=== PATIENT | male | born 1990 | race Caucasian/White ===

== ENCOUNTER → 2018-05-25 08:48 | Emergency (ER) | payer OTHER ==
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
[2018-05-25 09:41] VITALS: BP 128/101
== END | disposition left against medical advice (07) ==
LOC: ED 08:48
DX: F10.20 Alcohol dependence, uncomplicated (principal); F17.210 Nicotine dependence, cigarettes, uncomplicated; Z53.21 Procedure and treatment not carried out due to patient leaving prior to being seen by health care provider; Z88.8 Allergy status to other drugs, medicaments and biological substances
CPT/HCPCS: 99282

== ENCOUNTER 2018-05-25 09:55 | Emergency (ER) | payer MEDICAID, OTHER ==
[2018-05-25] MEDS ORDERED: Thiamine IV* 100 MG, Folic Acid IV* 1 MG, Multiple Vitamin IV ADULT* 10 ML in NS 0.9% 1... IV ONE (10:08)
[2018-05-25] MEDS ORDERED: Lidocaine 2% VISCOUS* 15 ML UDC PO ONE (10:12)
[2018-05-25] MEDS ORDERED: Pantoprazole IV* 40 MG IV ONE (10:12)
[2018-05-25] MEDS ORDERED: Famotidine TAB* 20 MG PO ONE (10:12)
[2018-05-25] MEDS ORDERED: Al Hydrox/Mg Hydrox/Simet LIQ* 30 ML UDC PO ONE (10:12)
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
[2018-05-25 10:37] LABS: ABS Basophils 0 10^3/ul (0-0.2); ABS Eosinophils 0.1 10^3/ul (0-0.6); ABS Lymphocytes 1.1 10^3/ul (1.0-4.8); ABS Monocytes 0.5 10^3/ul (0-0.8); ABS Neutrophils 2.5 10^3/ul (1.5-7.7); ABS Nucleated RBC 0 10^3/ul; Eosinophil % 2.2 % (0-6); Hematocrit 50 % (42-52); Hemoglobin 17.2 g/dl (14.0-18.0); Mean Corpuscular HGB Conc 34 g/dl (31-36); Mean Corpuscular Hemoglobin 33 pg (27-31); Mean Corpuscular Volume 94 fL (80-94); Mean Platelet Volume 7.9 um3 (7.4-10.4); Nucleated Red Blood Cells % 0.2; Platelet Count 124 10^3/ul (150-450); Red Blood Count 5.29 10^6/ul (4.00-5.40); Red Cell Distribution Width 15 % (10.5-15); White Blood Count 4.2 10^3/ul (3.5-10.8)
--- NOTE | 2018-05-25 10:45 | RAD ---
INDICATION: Seizure COMPARISON: None. TECHNIQUE: Contiguous axial sections of the brain were obtained from the skull base to the vertex without contrast. FINDINGS: The ventricles, cisterns and sulci are within normal limits. The do-white matter differentiation is adequately maintained and there is no sulcal effacement. No significant focal abnormality or mass effect is present. There is no evidence for intracranial hemorrhage. No significant focal osseous abnormality is present. The visualized portion of the paranasal sinuses appear clear. The mastoid air cells are well aerated bilaterally. IMPRESSION: Normal CT of the brain.
[2018-05-25 10:52] LABS: INR 0.83 (0.77-1.02)
[2018-05-25 10:55] LABS: EGFR Non-African American 125.9 (>60)
--- NOTE | 2018-05-25 11:06 | RAD ---
INDICATION: Chest pain COMPARISON: Chest x-ray dated October 17, 2013 TECHNIQUE: Single AP portable view of the chest was obtained. FINDINGS: Image quality is compromised due to the relative inferiority of a portable chest x-ray. The heart and mediastinum exhibit normal size and contour. The lungs are grossly clear. There is no evidence of a large pleural effusion. Visualized bones are normal for the patient's age. IMPRESSION: No radiographic evidence for acute cardiopulmonary abnormality on this portable chest x-ray.
[2018-05-25 12:16] VITALS: BP 139/83
== END 2018-05-25 11:37 | disposition home or self-care (01) ==
LOC: ED 09:55
DX: F10.10 Alcohol abuse, uncomplicated (principal); K29.70 Gastritis, unspecified, without bleeding; F17.210 Nicotine dependence, cigarettes, uncomplicated; Z88.8 Allergy status to other drugs, medicaments and biological substances
CPT/HCPCS: 36415; 70450; 71045; 80053; 80320; 82175; 82550; 83605; 83735; 84443; 84484; 85025; 85610; 85730; 93005; 96374; 99284; G0480

== ENCOUNTER 2018-05-30 12:08 | Emergency (ER) | payer OTHER ==
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
[2018-05-30] MEDS ORDERED: NS 0.9% 1000 ML* 1,000 ML IV ONE (14:07)
[2018-05-30] MEDS ORDERED: Thiamine IV* 100 MG, Folic Acid IV* 1 MG, Multiple Vitamin IV ADULT* 10 ML in NS 0.9% 1... IV ONE (14:07)
[2018-05-30] MEDS ORDERED: LORazepam INJ* 2 MG/ML 1 ML VIAL IV PUSH ONE (14:40)
[2018-05-30] MEDS ORDERED: LORazepam INJ* 2 MG/ML 1 ML VIAL IM ONE (14:42)
[2018-05-30 14:49] LABS: ABS Basophils 0 10^3/ul (0-0.2); ABS Eosinophils 0 10^3/ul (0-0.6); ABS Lymphocytes 1.3 10^3/ul (1.0-4.8); ABS Monocytes 0.5 10^3/ul (0-0.8); ABS Neutrophils 2.7 10^3/ul (1.5-7.7); ABS Nucleated RBC 0 10^3/ul; Eosinophil % 0.5 % (0-6); Hematocrit 47 % (42-52); Hemoglobin 16.1 g/dl (14.0-18.0); Lymphocyte % 28.7 % (25-47); Mean Corpuscular HGB Conc 35 g/dl (31-36); Mean Corpuscular Hemoglobin 33 pg (27-31); Mean Corpuscular Volume 95 fL (80-94); Mean Platelet Volume 7.4 um3 (7.4-10.4); Nucleated Red Blood Cells % 0.1; Platelet Count 157 10^3/ul (150-450); Red Blood Count 4.92 10^6/ul (4.00-5.40); Red Cell Distribution Width 15 % (10.5-15); White Blood Count 4.6 10^3/ul (3.5-10.8)
[2018-05-30 15:01] LABS: EGFR Non-African American 141.2 (>60)
--- NOTE | 2018-05-30 16:54 | RAD ---
INDICATION: Seizure. Fall. COMPARISON: CT brain May 25, 2018 TECHNIQUE: Noncontrast axial source images were acquired from the skull base to the vertex. FINDINGS: Ventricles/sulci: The ventricles and cisterns are normal in size and configuration for age. Brain parenchyma: There is no focal parenchymal finding, evidence of intracranial mass, or intracranial mass effect. Intracranial hemorrhage:None. Extra-axial spaces: There are no abnormal extra axial fluid collections or evidence of extra-axial mass. Calvarium: There is no calvarial fracture or other calvarial abnormality. Scalp: There is no evidence of scalp or extracalvarial soft tissue abnormality. Paranasal sinuses/mastoid: The paranasal sinuses and mastoid air cells are clear. Other: None. IMPRESSION: NEGATIVE EXAMINATION, UNCHANGED.
[2018-05-30] MEDS ORDERED: LORazepam INJ* 2 MG/ML 1 ML VIAL ONE (18:28)
[2018-05-30] MEDS: LORazepam INJ* 2 MG/ML 1 ML VIAL IV PUSH ONE ×2 (18:32→20:27)
[2018-05-30] MEDS ORDERED: diPHENhydraMINE IV* 50 MG/ML 1 ml VIAL (BENADRYL) ONE (18:58)
[2018-05-30] MEDS ORDERED: diPHENhydraMINE IV* 50 MG in NS 0.9% 50 ML* 50 ML IVPB ONE (18:59)
[2018-05-30] MEDS ORDERED: Ondansetron INJ* 2 MG/ML VIAL IV PRN (22:31)
[2018-05-30] MEDS ORDERED: Thiamine IV 100 MG, Folic Acid IV* 1 MG, Multiple Vitamin IV ADULT* 10 ML in NS 0.9% 10... IV ONE (22:31)
[2018-05-30] MEDS ORDERED: Acetaminophen TAB* 325 MG PO PRN (22:31)
[2018-05-30] MEDS ORDERED: Magnesium Sulfate IV* 2 GM in NS 0.9% 100 ML* 100 ML IV ONE (22:33)
[2018-05-30] MEDS ORDERED: Albuterol 2.5 MG/3 ML NEB.SOL* (0.083%) INH PRN (22:41)
[2018-05-30] MEDS ORDERED: LORazepam INJ* 2 MG/ML 1 ML VIAL IV PUSH SCH (23:00)
[2018-05-30] MEDS ORDERED: LORazepam INJ* 2 MG/ML 1 ML VIAL IV SCH (23:00)
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
[2018-05-30 23:52] VITALS: BP 140/93
--- NOTE | 2018-05-31 00:19 | CONS ---
CONSULTATION REPORT: ADDENDUM: While dictating, the patient's mother was reached. She is willing to take the patient home under her care. I did touch base with and my attending. Since the mother shows up and is confident and can care for him, the patient will be discharged to the care of the patient's mother where he is now residing. He has not had a seizure here. Repeat alcohol is pending. Nursing staff did touch base with the mother. She is on her way here. Should she feel comfortable taking the patient home, she will be taking the patient home under her care. However, if she is uncomfortable, then we will certainly admit him until his alcohol is in a safe range. I did again update the ED provider and I updated my attending. They are in agreement. WESLEY MOSLEY NP [id number]/CPS #: [id number] ERNESTO
--- NOTE | 2018-05-31 02:14 | HP ---
ADDENDUM NOW INCLUDED ON THIS REPORT HISTORY AND PHYSICAL: DATE OF ADMISSION: 05/30/18 PRIMARY CARE PROVIDER: Unknown. ATTENDING PHYSICIAN WHILE IN THE HOSPITAL: Dr. Dorys Porter * (report dictated by Bill Mosley NP). CHIEF COMPLAINT: 1. Alcohol abuse. 2. Questionable seizure. HISTORY OF PRESENT ILLNESS: Mr. Doe is a 28-year-old male patient with a well known history of alcohol abuse also carries a history of polysubstance abuse, hepatitis C, suicidal ideation, depression, asthma and a history of seizures. He is coming into the ER today, apparently according to him he came in on his own wishing for rehab purposes; however according to nursing notes and according to the story that was received by nursing staff, he does not collaborate this. He apparently had a seizure today. He felt like he was coming down off alcohol and he drank a bottle of vodka to prevent going into alcohol withdrawal. Alcohol level was checked. He was noted to be 460. He has been belligerent down here. He has been in the ED for 10 hours, he is showing signs of withdrawal at times. He also in addition to this has been noted to have no safe discharge and his alcohol again is over 460. He has had withdrawals in the past. He has required ICU admission in the past for this. There was concern because he had no safe discharge plan and alcohol level being too high. His mother refused to take him home. She is interested in detox. We were asked to evaluate for admission. He is denying having any chest pain or shortness of breath. He is requesting his phone. He denies having any headache. He does not recall the seizure today although he states he has had a history of withdrawal seizures in the past. Per the patient, he is interested in rehab, he felt those services could be offered here but when he found out that we do not offer that at this hospital, he was requesting to be discharged. Unfortunately, he did not have a safe discharge plan, so we were asked to evaluate for admission. PAST MEDICAL HISTORY: 1. Polysubstance abuse. 2. IV drug use. 3. Suicidal ideation. 4. Depression. 5. Hepatitis C. 6. Asthma. 7. Seizures from withdrawal. PAST SURGICAL HISTORY: He has had skin grafting. HOME MEDICATIONS: According to doctor first, I think we need to update this tomorrow and clarify with his PCP. He is on, 1. Ibuprofen 800 mg every 6 hours as needed. 2. Pepcid 20 mg p.o. twice a day. 3. Prilosec 40 mg daily. And there is a question if he is taking Zoloft and Seroquel. ALLERGIES: Include PHENERGAN and HALDOL. FAMILY HISTORY: He is only forthcoming with this. I did specifically ask him if mom and dad had any history of heart disease, cancer, stroke, diabetes, all he says that his mom did some messed up stuff when she was his age. I am assuming that is polysubstance abuse as well, but it is unclear. SOCIAL HISTORY: He is about a pint and half a day drinker. He does say he has a history of IV drug use, but he says he has not used in sometime, he states 4 years the last time it was injected, he says he is on Suboxone but we are unable to clarify that. Surrogate decision maker is his fiance. REVIEW OF SYSTEMS: There is no documented fever. He is denying having any significant weight change. There is no ear discharge. He is denying having any rhinorrhea. There is no sore throat, no thyroid enlargement and denied having any chest pain. There is no orthopnea. There is no nocturnal dyspnea. He is denying having any abdominal pain. There was no nausea, no vomiting, no dysuria, no frequency. There is question of seizure. No loss of consciousness. No pruritus. No skin ulcerations. Review of 14 systems was completed, all others negative. PHYSICAL EXAMINATION GENERAL: At this time, Mr. Doe is a 28-year-old male patient. He does appear to be disheveled. He is sitting in the ED stretcher. He does not appear to be in any acute distress. VITAL SIGNS: Blood pressure 117/70, pulse 110, respirations 18, O2 sat 97%, temperature 98.8. HEENT: Head: Atraumatic, normocephalic. Eyes: EOMs are intact. Sclerae anicteric, not pale. Neck, supple. Oral mucosa appears to be dry. No oropharyngeal erythema. HEART: Sounds S1, S2. He has a regular rate and rhythm. He is tachycardic. LUNGS: Clear to auscultation bilaterally. No wheezes, rales, or rhonchi. ABDOMEN: Soft, flat, nontender. Bowel sounds were present. EXTREMITIES: Pulses were 2+ throughout. He had no peripheral edema. He is moving all 4 extremities with 5/5 strength. NEUROLOGIC: The patient is awake. He is alert. He is oriented x3. His tongue is midline. Windows Systems Engineer were equal. He had no gross focal deficits. SKIN: Intact. DIAGNOSTIC STUDIES/LAB DATA: WBC of 4.6, RBC of 4.92, hemoglobin of 16.1, hematocrit of 47, platelet count of 157. Sodium 140, potassium 3.8, chloride 103, bicarb 24, BUN 6, creatinine 0.67, glucose 140, lactate 2, calcium 9.5, mag 1.8. Total bili 0.4, AST 81, ALT 68. Albumin of 4.5. Toxicology, alcohol is 468. Barbiturates positive. He had a brain CT obtained today which revealed negative. Exam unchanged. Old medical records were reviewed. ASSESSMENT AND PLAN: Mr. Doe is a 28-year-old male patient, coming into the ED today with complaints of alcoholism, questions of alcohol withdrawal seizure. We were asked to evaluate for admission. He will be admitted under observation status for: 1. Alcoholism. At this point, I did place a social work consult. He is not a medical comp and to make a decision on his own should he have a safe discharge such as a family member coming to get him or a confident adult. He can be discharged under their care. Unfortunately he does not have that at this point and his alcohol level is too high for him to be discharged, so I have discussed with him since at this point we will be admitting him, putting him on a [place] protocol, give him a banana bag, refer to social work consult. They will continue to follow him. 2. History of polysubstance abuse. We will clarify if he is on Suboxone, I felt the last time he was prescribed this was in 2017, so we will continue again to get social work and we will follow. 3. History of suicidal ideation and depression. He is not suicidal at this point. Continue supportive care. 4. Hepatitis C. We will need to set him up for the primary. 5. History of alcohol withdrawal seizure. I have placed him on standing Ativan and we will continue with seizure precautions. 6. Asthma. We have ordered p.r.n. nebs. 7. DVT prophylaxis. He will be placed on SCDs. 8. Code status: Full code. 9. Fluids, electrolytes, and nutrition. He can have a regular diet. TIME SPENT: Time spent on admission was 60 minutes, greater than half the time was spent [id number] with the patient obtaining my history and physical; other half time was spent going over the plan of care with the patient and implementing plan of care. I did discuss the plan of care with my attending, Dr. Porter, she is in agreement. BILL MOSLEY NP ADDENDUM: While dictating, the patient's mother was reached. She is willing to take the patient home under her care. I did touch base with and my attending. Since the mother shows up and is confident and can care for him, the patient will be discharged to the care of the patient's mother where he is now residing. He has not had a seizure here. Repeat alcohol is pending. Nursing staff did touch base with the mother. She is on her way here. Should she feel comfortable taking the patient home, she will be taking the patient home under her care. However, if she is uncomfortable, then we will certainly admit him until his alcohol is in a safe range. I did again update the ED provider and I updated my attending. They are in agreement. BILL MOSLEY NP [id number]/CPS #: [id number] Jose [id number]/CPS #: [id number] ERNESTO
[2018-05-31] MEDS ORDERED: Sertraline* 50 MG TAB PO SCH (09:00)
[2018-05-31] MEDS ORDERED: Omeprazole CAP* 20 MG PO SCH (09:00)
[2018-05-31] MEDS ORDERED: Famotidine TAB* 20 MG PO SCH (09:00)
[2018-05-31] MEDS ORDERED: Thiamine TAB* 100 MG TAB PO SCH (09:00)
[2018-05-31] MEDS ORDERED: Folic Acid TAB* 1 MG PO SCH (09:00)
[2018-05-31] MEDS ORDERED: Multivitamins/Minerals TAB PO SCH (09:00)
[2018-05-31] MEDS ORDERED: QUETIAPINE FUMARATE 100 MG PO SCH (21:00)
== END 2018-05-30 23:52 | disposition home or self-care (01) ==
LOC: ED 12:08 → ICU 22:29 → UNDOADMOB 22:29 → ED 23:52
DX: F10.129 Alcohol abuse with intoxication, unspecified (principal); Y90.8 Blood alcohol level of 240 mg/100 ml or more; S05.11XA Contusion of eyeball and orbital tissues, right eye, initial encounter; Y04.2XXA Assault by strike against or bumped into by another person, initial encounter; Y92.9 Unspecified place or not applicable; F17.210 Nicotine dependence, cigarettes, uncomplicated; Z86.69 Personal history of other diseases of the nervous system and sense organs; Z88.8 Allergy status to other drugs, medicaments and biological substances
CPT/HCPCS: 36415; 70450; 80053; 80307; 80320; 83605; 83735; 85025; 96361; 96365; 96372; 99285; G0480; J1200; J2060; J3411

== ENCOUNTER 2018-07-15 15:49 | Inpatient (IN) | payer OTHER ==
[2018-07-15] MEDS ORDERED: LORazepam INJ* 2 MG/ML 1 ML VIAL ONE ×3 (16:04→16:18)
[2018-07-15] MEDS ORDERED: LORazepam INJ* 2 MG/ML 1 ML VIAL IV PUSH ONE ×3 (16:05→16:18)
[2018-07-15] MEDS ORDERED: NS 0.9% 1000 ML* 1,000 ML IV ONE (16:05)
[2018-07-15] MEDS ORDERED: Thiamine IV* 100 MG, Folic Acid IV* 1 MG, Multiple Vitamin IV ADULT* 10 ML in NS 0.9% 1... IV ONE ×2 (16:06→16:40)
--- NOTE | 2018-07-15 16:14 | ED ---
Syncope/Near Syncope - HPI Summary HPI Summary: This patient is a 28 year old M BIBA to [facility] with a chief complaint of a syncopal episode with loss of consciousness that occurred at 15:00. Pt has hx of seizures but witnesses could not describe the episode as a seizure. The patient rates the pain 8/10 in severity. Symptoms aggravated by nothing. Symptoms alleviated by nothing. Patient reports tremors and rapid HR. Patient also notes a diffuse rash to his whole body. Patient reports that his symptoms may be due to EtOH withdrawal. Pt says he last had a drink 1 day ago. At worst, patient notes that he drinks 1L of vodka per day. Patient notes he has hx of heart rhythm problems, he thinks SVT. Pt has previous hx of heroin use and pt states he has been clean for 3 years. In room, HR is 185 bpm. - History Of Current Complaint Chief Complaint: EDChestPainROMI Time Seen by Provider: 07/15/18 16:00 Hx Obtained From: Patient, EMS Onset/Duration: Sudden Onset, Resolved Timing: Seconds Context: Witnessed Aggravating Factor(s): Nothing Alleviating Factor(s): Nothing Associated Signs And Symptoms: Palpitations - rapid HR, Other - tremors, diffuse rash - Allergies/Home Medications Allergies/Adverse Reactions: Allergies Allergy/AdvReac Type Severity Reaction Status Date / Time bee venom protein (honey bee) Allergy Anaphylatic Verified 07/15/18 16:08 Shock haloperidol [From Haldol] Allergy See Comment Verified 07/15/18 16:08 promethazine Allergy See Comment Verified 07/15/18 16:08 bee stings Allergy Severe Swelling Uncoded 07/15/18 16:08 Of Face,Lips,& Throat Home Medications: Home Medications Buprenorphine HCl/Naloxone HCl [Suboxone 8 mg-2 mg Sl Film] 1 each SL DAILY 01/27 [History Confirmed 07/15/18] Famotidine [Pepcid] 20 mg PO BID 07/15/18 [History Confirmed 07/15/18] Melatonin 3 mg PO DAILY PRN 07/15/18 [History Confirmed 07/15/18] cloNIDine TAB* [Catapres 0.1 MG TAB*] 0.3 mg PO DAILY 07/15/18 [History Confirmed 07/15/18] PMH/Surg Hx/FS Hx/Imm Hx Endocrine/Hematology History: Denies: Hx Diabetes Cardiovascular History: Reports: Hx Hypertension Respiratory History: Reports: Hx Asthma GI History: Reports: Hx Ulcer Musculoskeletal History: Reports: Hx Back Problems Sensory History: Denies: Hx Legally Blind, Hx Deafness Opthamlomology History: Denies: Hx Legally Blind Neurological History: Reports: Hx Seizures Psychiatric History: Reports: Hx Anxiety, Hx Depression, Hx Inpatient Treatment , Hx Community Mental Health Tx, Hx Suicide Attempt, Hx Substance Abuse Denies: Hx Eating Disorder, Hx of Violent Episodes Against Others - Surgical History Surgery Procedure, Year, and Place: none Infectious Disease History: Yes Infectious Disease History: Reports: Hx Hepatitis Denies: Traveled Outside the [place] in Last 30 Days - Family History Known Family History: Negative: Blood Disorder - Social History Alcohol Use: Daily Alcohol Amount: 1 L vodka a day, states cutting back Hx Substance Use: Yes Substance Use Type: Reports: Heroin Substance Use Comment - Amount & Last Used: states clean 3 years Smoking Status (MU): Light Every Day Tobacco Smoker Type: Cigarettes Amount Used/How Often: 1/4 pack day Review of Systems Negative: Fever, Chills Negative: Erythema Negative: Sore Throat Positive: Palpitations. Negative: Chest Pain Negative: Shortness Of Breath, Cough Negative: Abdominal Pain, Vomiting, Nausea Negative: dysuria, hematuria Negative: Myalgia, Edema Positive: Rash - diffuse rash Neurological: Negative - negative dizziness, Other - positive tremors Positive: Syncope All Other Systems Reviewed And Are Negative: Yes Physical Exam - Summary Physical Exam Summary: Constitutional: Well-developed, Well-nourished, Alert. (-) Distressed Skin: Warm, Dry. Round, raised lesions on his extremities HENT: Atraumatic, parietal abrasion Eyes: Conjunctiva normal Neck: Musculoskeletal ROM normal neck. (-) JVD, (-) Stridor, (-) Tracheal deviation Cardio: Rhythm regular, tachycardia, Heart sounds normal; Intact distal pulses; The pedal pulses are 2+ and symmetric. Radial pulses are 2+ and symmetric. (-) Murmur Pulmonary/Chest wall: Effort normal. (-) Respiratory distress, (-) Wheezes, (-) Rales Abd: Soft, (-) epigastric tenderness, (-) Distension, (-) Guarding, (-) Rebound Musculoskeletal: (-) Edema Lymph: (-) Cervical adenopathy Neuro: Alert, Oriented x3, tremulous Psych: Mood and affect Normal Triage Information Reviewed: Yes Vital Signs On Initial Exam: Initial Vitals Temp Pulse Resp BP Pulse Ox 99.2 F 189 16 173/105 98 07/15/18 15:55 07/15/18 15:55 07/15/18 15:55 07/15/18 15:55 07/15/18 15:55 Vital Signs Reviewed: Yes Diagnostics - Vital Signs Vital Signs Temp Pulse Resp BP Pulse Ox 07/15/18 16:08 20 07/15/18 15:55 99.2 F 189 16 173/105 98 - Laboratory Result Diagrams: 07/15/18 16:22 07/15/18 16:22 Lab Statement: Any lab studies that have been ordered have been reviewed, and results considered in the medical decision making process. - CT CT Brain CT Interpretation: No Acute Changes - IMPRESSION: No intracranial mass or hemorrhage is noted. Dr. Kingsley has reviewed this report. CT Interpretation Completed By: Radiologist CT C-Spine CT Interpretation: No Acute Changes - IMPRESSION: No fracture of the cervical spine is noted. Scoliosis of the cervical spine. Dr. Kingsley has reviewed this report. CT Interpretation Completed By: Radiologist - EKG 16:12 Cardiac Rate: Tachycardia - at 165 bpm EKG Rhythm: Atrial Fibrillation - rapid ventricular rhythm EKG Interpretation: AFib at 165 bpm with rapid ventricular rhythm Course/Dx Course Of Treatment: This patient is a 28 year old M with hx of EtOH and drug abuse, seizures, and SVT reports syncopal episode at 15:00. Patient last had a drink1 day ago and notes his symptoms may be due to EtOH withdrawal. An EKG reveals, AFib at 165 bpm with rapid ventricular rhythm. CT Brain reveals, per radiologist, no intracranial mass or hemorrhage is noted. CT C-spine reveals, per radiologist, no fracture of the cervical spine is noted. Scoliosis of the cervical spine. ED physician has reviewed these radiology reports. Test results with no significant abnormalities except for elevated lactic acid. In the ED course the patient was given IV fluids, Ativan, Diltiazem, Cardizem, and a Banana Bag. We discussed patient care with Dr. Porter and they agreed to admit pt to [facility]. Patient will be admitted to [facility]. The patient is agreeable with this plan. - Diagnoses Provider Diagnoses: Atrial fibrillation with rapid ventricular response, Alcohol withdrawal seizure - Physician Notifications Discussed Care of Patient With: Dorys Porter Time Discussed With Above Provider: 17:00 Instructed by Provider To: Admit As Inpatient Discharge - Sign-Out/Discharge Documenting (check all that apply): Patient Departure - Discharge Plan Condition: Improved Disposition: ADMITTED TO [facility] - Billing Disposition and Condition Condition: IMPROVED Disposition: Admitted to [facility] - Attestation Statements Document Initiated by Scribe: Yes Documenting Scribe: Sissy Ruiz Provider For Whom Scribe is Documenting (Include Credential): Derian Kingsley MD Scribe Attestation: Sissy Hooks, scribed for Derian Kingsley MD on 07/20/18 at 1231. Scribe Documentation Reviewed: Yes Provider Attestation: The documentation as recorded by the scribe, Sissy Ruiz accurately reflects the service I personally performed and the decisions made by Derian ferrari MD
[2018-07-15] MEDS ORDERED: Diltiazem IV VIAL* 5 MG/ML 10 ML VIAL IV SLOW PU ONE ×3 (16:18→17:27)
[2018-07-15] MEDS ORDERED: Diltiazem IV* 5 MG/ML 5 ML VIAL (for loading dose/IV Push) (25 MG) ONE (16:20)
[2018-07-15] MEDS: Diltiazem IV* 5 MG/ML 5 ML VIAL (for loading dose/IV Push) (25 MG) IV SLOW PU ONE ×2 (16:22→16:28)
[2018-07-15 16:32] LABS: ABS Basophils 0 10^3/ul (0-0.2); ABS Eosinophils 0 10^3/ul (0-0.6); ABS Lymphocytes 0.8 10^3/ul (1.0-4.8); ABS Monocytes 0.4 10^3/ul (0-0.8); ABS Neutrophils 3.4 10^3/ul (1.5-7.7); ABS Nucleated RBC 0 10^3/ul; Eosinophil % 0.8 % (0-6); Hematocrit 46 % (42-52); Hemoglobin 15.9 g/dl (14.0-18.0); Lymphocyte % 17.6 % (25-47); Mean Corpuscular HGB Conc 35 g/dl (31-36); Mean Corpuscular Hemoglobin 33 pg (27-31); Mean Corpuscular Volume 95 fL (80-94); Nucleated Red Blood Cells % 0.1; Platelet Count 275 10^3/ul (150-450); Red Blood Count 4.82 10^6/ul (4.00-5.40); Red Cell Distribution Width 15 % (10.5-15); White Blood Count 4.7 10^3/ul (3.5-10.8)
[2018-07-15 16:46] LABS: EGFR Non-African American 113.5 (>60)
[2018-07-15] MEDS ORDERED: Diltiazem TAB* 30 MG PO ONE (16:57)
--- NOTE | 2018-07-15 17:39 | RAD ---
Indication: Altered mental status CT of the brain was performed without IV contrast. Comparison is made with previous exam dated May 30, 2018. Ventricular structures are midline. No midline shift is noted. The extra-axial spaces are unremarkable. There is no evidence of intracranial mass or hemorrhage. No other high or low density lesions are identified. Mastoid air cells and paranasal sinuses are otherwise unremarkable. IMPRESSION: No intracranial mass or hemorrhage is noted.
--- NOTE | 2018-07-15 17:41 | RAD ---
Indication: Confusion. CT of the cervical spine was obtained in the axial plane. Sagittal and coronal reconstructed images were obtained. The skull base demonstrates no evidence of fracture. The vertebral bodies appear normal height. No evidence of compression fracture is noted. No focal protrusion is identified. There is suggestion of some scoliosis of the cervical spine. Lung apices are otherwise unremarkable. IMPRESSION: No fracture of the cervical spine is noted. Scoliosis of the cervical spine.
[2018-07-15 17:42] LABS: INR 0.8 (0.77-1.02)
[2018-07-15] MEDS ORDERED: Metoprolol Tartrate IV* 1 MG/ML 5 ML VIAL IV PRN (17:50)
[2018-07-15] MEDS ORDERED: Metoprolol Tartrate TAB* 25 MG PO SCH (18:00)
[2018-07-15] MEDS: chlordiazePOXIDE CAP* 25 MG PO SCH ×2 (18:05→20:23)
--- NOTE | 2018-07-15 18:24 | ADMNOTE ---
Subjective Date of Service: 07/15/18 Interval History: ADMISSION HISTORY AND PHYSICAL EXAM: Allergies Allergy/AdvReac Type Severity Reaction Status Date / Time bee venom protein (honey bee) Allergy Anaphylatic Verified 07/15/18 16:08 Shock haloperidol [From Haldol] Allergy See Comment Verified 07/15/18 16:08 promethazine Allergy See Comment Verified 07/15/18 16:08 bee stings Allergy Severe Swelling Uncoded 07/15/18 16:08 Of Face,Lips,& Throat Home Medications Medication Instructions Recorded Confirmed Type Quetiapine Fumarate [Seroquel] 100 mg PO BEDTIME 06/23/14 07/15/18 History Buprenorphine HCl/Naloxone HCl 1 each SL DAILY 07/15/18 07/15/18 History [Suboxone 8 mg-2 mg Sl Film] Famotidine [Pepcid] 20 mg PO BID 07/15/18 07/15/18 History Melatonin 3 mg PO DAILY PRN 07/15/18 07/15/18 History cloNIDine TAB* [Catapres 0.1 MG 0.3 mg PO DAILY 07/15/18 07/15/18 History TAB*] HPI: The patient last had an alcoholic drink about 2 AM today. He had been drinking heavily. About 2 PM he had a seizure and fell off a porch onto concrete. He later could tell his heart was very fast. He felt terrible. He had struck his head. EMS was called. He has had alcohol withdrawal seizures before, probably has had atrial fib before as well, treated at . Family History: Findings - Unremarkable. Social History: Findings - Smoker. Recently moved to [place], about 2 months ago. He cannot name a SDM at this time. Past Medical History: Findings - Alcohol abuse with withdrawal seizures, polysubstance abuse, psoriasis, hep C, suicidal ideation, asthma, depression. Review of Systems - Measurements Intake and Output: Intake and Output Last 24 Hours 07/13/18 07/14/18 07/15/18 07/16/18 06:59 06:59 06:59 06:59 Weight 150 lb - Review of Systems Constitutional Symptoms: Negative: Weight Gain, Weight Loss, Weakness, Fatigue, Fever, Night Sweats, Unexplained Falls, Other Dermatology: Positive: Normal, Rash - psoriasis, pruritic, all limbs HEENT: Positive: Normal Thyroid: Positive: Normal Pulmonary: Positive: Normal Cardiology: Positive: Chest Pain Gastroenterology: Positive: Normal Genital - Urinary: Positive: Normal Genitourinary - Male: Negative: Prostatism, Erectile Dysfunction, Family Hx of Prostate Cancer, Other Musculoskeletal: Negative: Joint Pain, Joint Stiffness, Arthritis, Osteoporosis, Low Back Pain , Sciatica, Joint Deformities, Kyphoscoliosis, Other Endocrinology: Positive: Normal Hematologic/Lymphatic: Negative: Anemia, Easy Brusing, Hx Leukemia, Hx Lymphoma, Use of Anticoagulant, Use of Antiplatelet Drugs, Other Neurology: Positive: Normal Psychiatry: Positive: Depression, Suicidal Ideation - in past Allergic/Immunologic: Negative: Hx Anaphylaxis, Hx Angioedema, Hx Environmental, Hx Seasonal, Athsma, Hx HIV, Immunocompromise, Swollen Glands LymphNodes, Other Objective Active Medications: Buprenorphine/Naloxone (Suboxone 8-2 Mg Sl Tab*) 1 tab.sl PO DAILY [facility] Chlordiazepoxide (Librium Cap*) 50 mg PO TID [facility] Last Admin: 07/15/18 18:05 Dose: 50 mg Chlordiazepoxide (Librium Cap*) 50 mg PO Q3H PRN PRN Reason: ANXIETY Thiamine HCl 100 mg/ Folic Acid 1 mg/ Multivitamins 10 ml / Sodium Chloride 1, 011.2 mls @ 250 mls/hr IV ED ONCE ONE Stop: 07/15/18 20:08 Last Admin: 07/15/18 16:43 Dose: 250 mls/hr Metoprolol Tartrate (Lopressor Iv*) 5 mg IV Q2H PRN PRN Reason: BLOOD PRESSURE Last Admin: 07/15/18 18:05 Dose: 5 mg Metoprolol Tartrate (Lopressor Tab*) 25 mg PO Q6H [facility] Last Admin: 07/15/18 18:05 Dose: 25 mg Nicotine (Nicotine Patch 21 Mg/24 Hr*) 1 patch TRANSDERM DAILY [facility] Thiamine HCl (Vitamin B-1 Tab*) 200 mg PO DAILY [facility] Vital Signs - 8 hr 07/15/18 07/15/18 07/15/18 15:55 16:00 16:12 Temperature 99.2 F Pulse Rate 189 Respiratory 16 20 20 Rate Blood Pressure 173/105 (mmHg) O2 Sat by Pulse 98 Oximetry 07/15/18 07/15/18 07/15/18 16:21 16:26 16:27 Temperature Pulse Rate 119 125 Respiratory 22 14 14 Rate Blood Pressure 118/80 (mmHg) O2 Sat by Pulse 90 93 Oximetry 07/15/18 07/15/18 07/15/18 16:28 16:31 16:56 Temperature Pulse Rate 119 101 98 Respiratory 17 14 12 Rate Blood Pressure 144/96 135/90 133/83 (mmHg) O2 Sat by Pulse 93 94 95 Oximetry 07/15/18 07/15/18 07/15/18 17:13 17:14 18:05 Temperature Pulse Rate 108 107 Respiratory 14 15 20 Rate Blood Pressure 139/93 (mmHg) O2 Sat by Pulse 96 95 Oximetry Oxygen Devices in Use Now: None Appearance: Alert, partly up on ED stretcher. In fair spirits. Looks comfortable. Eyes: No Scleral Icterus Ears/Nose/Mouth/Throat: Clear Oropharnyx Neck: NL Appearance and Movements; NL JVP, No Thyroid Enlargement, Masses Respiratory: Symmetrical Chest Expansion and Respiratory Effort, Clear to Auscultation, Clear to Percussion Cardiovascular: NL Sounds; No Murmurs; No JVD, No Edema, - - rapid and irreg Extremities: No Edema, No Clubbing, Cyanosis, - Skin: No Nodules or Sclerosis, - - dozens of red macules, 1-3 cm on all 4 limbs. Neurological: Alert and Oriented x 3, NL Sensation - mild sustention tremor. Result Diagrams: 07/15/18 16:22 07/15/18 16:22 Assess/Plan/Problems-Billing Assessment: - Patient Problems (1) Atrial fibrillation Current Visit: Yes Status: Acute Code(s): I48.91 - UNSPECIFIED ATRIAL FIBRILLATION SNOMED Code(s): 55058606 Comment: Likely related to his alcoholism and likely not his first episode. Echo, po and IV BB. 2 troponins requested. (2) Alcohol withdrawal Current Visit: Yes Status: Acute Code(s): F10.239 - ALCOHOL DEPENDENCE WITH WITHDRAWAL, UNSPECIFIED SNOMED Code(s): 227581273 Comment: With hx seizures. Scheduled and PRN chlordiazepoxide ordered, also thiamine. (3) Tobacco abuse Current Visit: Yes Status: Acute Code(s): Z72.0 - TOBACCO USE SNOMED Code( s): 192976627 Comment: Pt advised to quit smoking and avoid second hand smoke. NRT ordered. (4) Polysubstance abuse Current Visit: No Status: Acute Code(s): F19.10 - OTHER PSYCHOACTIVE SUBSTANCE ABUSE, UNCOMPLICATED SNOMED Code(s): 238853161 Comment: Continuation of suboxone tx ordered.
[2018-07-15 18:28] LABS: Urine Appearance Clear; Urine Blood 1+ (Negative); Urine Color Yellow; Urine Ketones Negative (Negative); Urine Protein 1+(30 mg/dL) (Negative); Urine Red Blood Cell Trace(0-2/hpf) (Absent); Urine Specific Gravity 1.011 (1.010-1.030); Urine Urobilinogen Negative (Negative); Urine White Blood Cell Trace(0-5/hpf) (Absent)
[2018-07-15] MEDS: Thiamine TAB* 100 MG TAB PO SCH (20:23)
[2018-07-15] MEDS: Metoprolol Tartrate TAB* 50 mg PO SCH (20:23)
[2018-07-15] MEDS: Nicotine PATCH 21 MG/24 HR* PATCH TRANSDERM SCH (20:24)
[2018-07-15] MEDS: chlordiazePOXIDE CAP* 25 MG PO PRN (23:37)
[2018-07-16] MEDS: chlordiazePOXIDE CAP* 25 MG PO PRN ×4 (04:20→23:41)
[2018-07-16] MEDS: Metoprolol Tartrate TAB* 50 mg PO SCH ×2 (08:47→20:33)
[2018-07-16] MEDS: Buprenorphine/Naloxone 8-2 MG SL TAB* 1 TAB PO SCH (08:47)
[2018-07-16] MEDS: Nicotine PATCH 21 MG/24 HR* PATCH TRANSDERM SCH (08:48)
[2018-07-16] MEDS: chlordiazePOXIDE CAP* 25 MG PO SCH ×4 (08:48→20:33)
[2018-07-16] MEDS: Thiamine TAB* 100 MG TAB PO SCH (08:48)
[2018-07-16] MEDS ORDERED: Metoprolol Tartrate TAB* 25 MG PO ONE (09:12)
[2018-07-16] MEDS ORDERED: Metoprolol Tartrate IV* 1 MG/ML 5 ML VIAL IV PRN (09:15)
--- NOTE | 2018-07-16 09:28 | PN ---
Subjective Date of Service: 07/16/18 Interval History: Slept poorly. He is going to try to eat his breakfast. No new c/o. He agrees to see the , does not feel he needs to see psychiatrist at this time. Family History: Findings - Unremarkable. Social History: Findings - Smoker. Recently moved to [place], about 2 months ago. He cannot name a SDM at this time. Past Medical History: Findings - Alcohol abuse with withdrawal seizures, polysubstance abuse, psoriasis, hep C, suicidal ideation, asthma, depression. Objective Active Medications: Buprenorphine/Naloxone (Suboxone 8-2 Mg Sl Tab*) 1 tab.sl PO DAILY [facility] Last Admin: 07/16/18 08:47 Dose: 1 tab.sl Chlordiazepoxide (Librium Cap*) 50 mg PO Q3H PRN PRN Reason: ANXIETY Last Admin: 07/16/18 08:53 Dose: 50 mg Chlordiazepoxide (Librium Cap*) 50 mg PO QID [facility] Metoprolol Tartrate (Lopressor Tab*) 75 mg PO Q12HR [facility] Metoprolol Tartrate (Lopressor Iv*) 5 mg IV Q2H PRN PRN Reason: BLOOD PRESSURE Nicotine (Nicotine Patch 21 Mg/24 Hr*) 1 patch TRANSDERM DAILY [facility] Last Admin: 07/16/18 08:48 Dose: 1 patch Thiamine HCl (Vitamin B-1 Tab*) 200 mg PO DAILY [facility] Last Admin: 07/16/18 08:48 Dose: 200 mg Vital Signs - 8 hr 07/16/18 07/16/18 07/16/18 02:31 04:13 04:20 Temperature 98.3 F Pulse Rate 85 Respiratory 18 16 16 Rate Blood Pressure 154/87 (mmHg) O2 Sat by Pulse 97 Oximetry 07/16/18 07/16/18 07/16/18 06:00 06:55 07:27 Temperature 97.4 F Pulse Rate 87 Respiratory 16 14 16 Rate Blood Pressure 107/71 (mmHg) O2 Sat by Pulse 97 Oximetry 07/16/18 07/16/18 07/16/18 08:47 08:48 08:53 Temperature Pulse Rate Respiratory 16 16 16 Rate Blood Pressure (mmHg) O2 Sat by Pulse Oximetry Oxygen Devices in Use Now: None Appearance: Alert, sitting up in bed. In fair spirits. Looks comfortable. Eyes: No Scleral Icterus Respiratory: Symmetrical Chest Expansion and Respiratory Effort, Clear to Auscultation, Clear to Percussion Cardiovascular: NL Sounds; No Murmurs; No JVD, No Edema, - - irreg, rapid Extremities: No Edema, No Clubbing, Cyanosis, - Skin: No Nodules or Sclerosis, - - psoriatic lesions as before Neurological: Alert and Oriented x 3, NL Sensation - mild-mod sustention tremor. Result Diagrams: 07/15/18 16:22 07/15/18 16:22 Assess/Plan/Problems-Billing Assessment: - Patient Problems (1) Atrial fibrillation Current Visit: Yes Status: Acute Code(s): I48.91 - UNSPECIFIED ATRIAL FIBRILLATION SNOMED Code(s): 67396845 Comment: Likely related to his alcoholism and likely not his first episode. Echo, po and IV BB. 2 troponins both wnl. Increase metoprolol to 75 mg bid AM 07/16. (2) Alcohol withdrawal Current Visit: Yes Status: Acute Code(s): F10.239 - ALCOHOL DEPENDENCE WITH WITHDRAWAL, UNSPECIFIED SNOMED Code(s): 971119429 Comment: With hx seizures. Increase scheduled chlordiazepoxide to 50 mg QID as of 07/16, taper to 50 tid beginning 07/17, continue thiamine. SW consult requested. (3) Tobacco abuse Current Visit: Yes Status: Acute Code(s): Z72.0 - TOBACCO USE SNOMED Code( s): 718767802 Comment: Pt advised to quit smoking and avoid second hand smoke. NRT ordered. (4) Polysubstance abuse Current Visit: No Status: Acute Code(s): F19.10 - OTHER PSYCHOACTIVE SUBSTANCE ABUSE, UNCOMPLICATED SNOMED Code(s): 084954403 Comment: Continuation of suboxone tx ordered.
--- NOTE | 2018-07-16 16:14 | ECHO ---
Patient: MAJO CORNEJO [facility] Rec#: [id number] : 1990 Date: 07/16/2018 Age: 28y Height: 173 cm / 68.1 in Weight: 68.04 kg / 150.0 lbs Sex: M BSA: 1.81 Room#: 438 Admit Date#: 07/15/2018 Type: Inpatient Referring: Santosh Nath MD Reading: Lashae Evans MD Special Effects Technician: Liz ParkDR. [facility] Tran[facility] Ech[facility] Indication: Abnormal EKG, atrial fibrillation with RVR BP: 154/87 HR: 135 Rhythm: A-Fib Findings History: ETOH and polysubstance abuse, Hep. C, seizures with withdrawal, smoker. Technical Comments: The study quality is good. Completed at 1100. Left Ventricle: The left ventricular chamber size is normal. There is no left ventricular hypertrophy. Unable to estimate left ventricular ejection fraction. Given baseline tachycardia and probably atrial fibrillation. There is septal flattening of the interventricular septum consistent with right ventricular volume or pressure overload. The assessment of diastolic function is non-diagnostic. Left Atrium: The left atrial chamber size is normal. Right Ventricle: Moderator Band present. The right ventricle is mildly dilated. The right ventricular global systolic function is moderately reduced. Right Atrium: The right atrium is mildly dilated. Aortic Valve: The aortic valve is trileaflet. There is no evidence of aortic valve thickening. There is no evidence of aortic regurgitation. There is no evidence of aortic stenosis. Mitral Valve: The mitral valve leaflets are mildly thickened. There is a trace of mitral regurgitation. There is no evidence of mitral stenosis. Tricuspid Valve: The tricuspid valve leaflets are normal. There is trace tricuspid regurgitation. The right ventricular systolic pressure is estimated at 16 mmHg. No pulmonary hypertension is noted. There is no tricuspid stenosis. Pulmonic Valve: The pulmonic valve appears normal. There is a trace pulmonic regurgitation. There is no pulmonic stenosis. Pericardium: There is no significant pericardial effusion. Aorta: There is no dilatation of the ascending aorta. There is no dilatation of the aortic arch. The aortic root is normal in size. Pulmonary Artery: The main pulmonary artery appears normal. Venous: The inferior vena cava appears normal in size. There is a greater than 50% respiratory change in the inferior vena cava dimension. Summary: There was not any prior study for comparison. Conclusions The left ventricular chamber size is normal. The left ventricular chamber size is normal. Unable to estimate left ventricular ejection fraction. Given baseline tachycardia and probably atrial fibrillation. There is septal flattening of the interventricular septum consistent with right ventricular volume or pressure overload. The assessment of diastolic function is non-diagnostic. The right atrium is mildly dilated. There is a trace of mitral regurgitation. There is trace tricuspid regurgitation. No pulmonary hypertension is noted. There is a trace pulmonic regurgitation. Measurements Name Value Normal Range RVIDd (AP) 2D 2.9 cm (0.9 - 2.6) RVDdMajor (2D) 4.6 cm (2.2 - 4.4) RAd ISD 4CH 5.2 cm (3.4 - 4.9) RA (A4C)W 4.4 cm (2.9 - 4.6) IVSd (2D) 0.6 cm (0.6 - 1) LVPWd (2D) 0.7 cm (0.6 - 1) LVIDd (2D) 5.3 cm (3.6 - 5.4) LVIDs (2D) 4.2 cm - LV FS (2D) 21 % (25 - 45) Aortic Annulus 2.3 cm (1.4 - 2.6) Ao root diameter (2D) 2.9 cm (2.1 - 3.5) Ascending Ao 2.6 cm (2.1 - 3.4) Aortic arch 2.6 cm (1.8 - 3.4) LA dimension (AP) 2D 2.9 cm (2.3 - 3.8) LAd ISD 4CH 5 cm (2.9 - 5.3) LA ISD 4CH W 3.8 cm (2.5 - 4.5) Name Value Normal Range LA ESV BP (A/L) index 28 ml/m2 - Name Value Normal Range MV E-wave Vmax 0.7 m/sec - MV deceleration time 134 msec - LV septal e' Vmax 0.05 m/sec - LV lateral e' Vmax 0.04 m/sec - LV E:e' septal ratio 14 ratio - LV E:e' lateral ratio 17.5 ratio - Name Value Normal Range AV Vmax 1 m/sec - AV VTI 17.8 cm - AV peak gradient 4 mmHg - AV mean gradient 2 mmHg - LVOT Vmax 0.5 m/sec - LVOT VTI 12.4 cm - LVOT peak gradient 2 mmHg - LVOT mean gradient 1 mmHg - JACK Vmax 0.7 m/sec - Name Value Normal Range TR Vmax 1.8 m/sec - TR peak gradient 13 mmHg - RAP 3 mmHg - RVSP 16 mmHg - IVC diameter 2 cm - Name Value Normal Range PV Vmax 0.7 m/sec - PV peak gradient 2 mmHg -
--- NOTE | 2018-07-16 18:24 | PN ---
Progress Note - Progress Note Date of Service: 07/16/18 Note: The patient states that his SDM is his mother.
[2018-07-17] MEDS: chlordiazePOXIDE CAP* 25 MG PO PRN (03:02)
[2018-07-17] MEDS ORDERED: chlordiazePOXIDE CAP* 25 MG PO SCH (09:00)
[2018-07-17] MEDS: Buprenorphine/Naloxone 8-2 MG SL TAB* 1 TAB PO SCH (09:03)
[2018-07-17] MEDS: Nicotine PATCH 21 MG/24 HR* PATCH TRANSDERM SCH (09:03)
[2018-07-17] MEDS: Thiamine TAB* 100 MG TAB PO SCH (09:04)
[2018-07-17] MEDS: Metoprolol Tartrate TAB* 50 mg PO SCH (09:05)
[2018-07-17 12:50] VITALS: BP 104/63
--- NOTE | 2018-07-18 03:20 | DS ---
DISCHARGE SUMMARY: DATE OF ADMISSION: 07/15/18 DATE OF DISCHARGE: 07/17/18 ADMITTING PROVIDER: Duy Nath MD ATTENDING PHYSICIAN ON DAY OF DISCHARGE: Raleigh Ramires MD PRIMARY CARE PHYSICIAN: Currently none, as the patient is moved from [place], [place]. CHIEF COMPLAINT: Seizure with fall off a porch on to concrete; tachycardia. PRINCIPAL DIAGNOSES: 1. Alcohol withdrawal seizure. 2. Atrial fibrillation with rapid ventricular response, status post spontaneous conversion to normal sinus rhythm. 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 The patient last had drink of alcohol at 2 a.m., morning of admission and at [address] Duy Nath's history and physical, he had seizure, fell off a porch on to concrete. heart rate was very fast and presented to the emergency room and was referred to the hospitalist service. His heart rate was 189. He received diltiazem IV 10 mg pushes x2 followed by oral by diltiazem. Also received 5 of Lopressor IV. He received Ativan and chlordiazepoxide (Librium). He was given nicotine patch and thiamine supplementation. Started on metoprolol tartrate 50 mg p.o. q.12. He converted to normal sinus rhythm. He had an echocardiogram, which was diagnostic for ejection fraction given elevated heart rate. There was no septal flattening of the interventricular septum consistent with right ventricular volume or pressure overload. Diastolic function was also nondiagnostic in assessment. The patient had received social work consult and information about the drug and alcohol unga. He has been hemodynamically stable and withdrawal symptoms treated stably with standing Librium for which he will also continue on discharge. He has been given referral to [facility] given his lack of primary care provider. He should also set up with a new primary care provider, Dr. Braden Landry on 08/14/18 at 9:40 a.m. Additional studies include a CT brain without contrast that showed no intracranial mass or hemorrhage and cervical spine CT noncontrast showed no fracture of the cervical spine. The scoliosis of the cervical spine noted. DISCHARGE DIET: Heart healthy. MEDICATIONS: 1. Librium 50 mg p.o. b.i.d. for 6 tabs (taper to 25 mg p.o. b.i.d. on day #2). 2. Famotidine 20 mg p.o. b.i.d. 3. Melatonin 3 mg p.o. daily. 4. Nicotine patch 21 mg every 24 hours (new). 5. Seroquel 100 mg p.o. q.h.s. 6. Thiamine 200 mg p.o. daily (new). 7. Suboxone 8/2 mg sublingual film (old). REFERRALS: The patient was referred to Dr. Braden Landry as a new primary care provider who does provide Suboxone management in the local community on 01/27, the alcohol and drug unga as well as [facility] for acute followup in the postdischarge setting. TIME SPENT: On discharge 35 minutes. [id number]/[facility] #: [id number] ERNESTO
== END 2018-07-17 12:15 | disposition home or self-care (01) | DRG 201 ==
LOC: ED 15:49 → MEDTELE 17:45
PROVIDERS: ADMIT Internal Medicine; ATTEND Internal Medicine
DX: I48.0 Paroxysmal atrial fibrillation (principal); F10.239 Alcohol dependence with withdrawal, unspecified; G40.89 Other seizures; M41.82 Other forms of scoliosis, cervical region; I10 Essential (primary) hypertension; J45.909 Unspecified asthma, uncomplicated; F41.9 Anxiety disorder, unspecified; F32.9 Major depressive disorder, single episode, unspecified; F17.210 Nicotine dependence, cigarettes, uncomplicated; W17.89XA Other fall from one level to another, initial encounter; L40.9 Psoriasis, unspecified; F19.10 Other psychoactive substance abuse, uncomplicated; Y90.9 Presence of alcohol in blood, level not specified; Z86.19 Personal history of other infectious and parasitic diseases; Z72.89 Other problems related to lifestyle; Z88.8 Allergy status to other drugs, medicaments and biological substances; Z91.030 Bee allergy status; Y92.89 Other specified places as the place of occurrence of the external cause
CPT/HCPCS: 36415; 70450; 72125; 80053; 80307; 80320; 80329; 81003; 81015; 83605; 84443; 84484; 85025; 85610; 85730; 87086; 90686; 93005; 93306; 99284; A9270-GY; G0480; J2060; J3490

== ENCOUNTER 2018-07-24 19:12 | Observation (INO) | payer OTHER ==
[2018-07-24] MEDS ORDERED: Haloperidol INJ IV/IM* 5 MG/ML AMP ONE (19:17)
[2018-07-24] MEDS ORDERED: LORazepam INJ* 2 MG/ML 1 ML VIAL ONE (19:17)
[2018-07-24] MEDS ORDERED: LORazepam INJ* 2 MG/ML 1 ML VIAL IM ONE (19:22)
[2018-07-24] MEDS ORDERED: Haloperidol INJ IV/IM* 5 MG/ML AMP IM ONE (19:22)
--- NOTE | 2018-07-24 20:20 | ED ---
Substance Abuse/Use - HPI Summary HPI Summary: The patient is a 28 y/o M presenting to [facility] with a chief complaint of alcohol intoxication starting tonight [employer]. The pt and his friend were in a cab in [place] when his friend left him in the cab to pay, but the pt was unable to pay due to his inebriated condition. The structured cabling technician called police dispatch for help with the situation, where the pt admitted to drinking a handle of vodka today but denies other substance use. Pt combative on arrival. He complains of left upper back and left lateral chest pains. - History Of Current Complaint Chief Complaint: EDSubstanceAbuse Stated Complaint: 2208 Time Seen by Provider: 07/24/18 19:22 Hx Obtained From: Patient, Other: - IPD Onset/Duration of Drug/ETOH Abuse: Hours Ingestion History: Type/Name Of Drug - Vodka, Amount Ingested - handle Timing Of Abuse: Binge Use Severity Initially: Severe Severity Currently: Severe Character: Manic Aggravating Factor(s): Nothing Alleviating Factor(s): Nothing Associated Signs And Symptoms: Other: - combative, left upper back pain, left lateral chest pain - Allergies/Home Medications Allergies/Adverse Reactions: Allergies Allergy/AdvReac Type Severity Reaction Status Date / Time bee venom protein (honey bee) Allergy Anaphylatic Verified 07/15/18 16:08 Shock haloperidol [From Haldol] Allergy See Comment Verified 07/15/18 16:08 promethazine Allergy See Comment Verified 07/15/18 16:08 bee stings Allergy Severe Swelling Uncoded 07/15/18 16:08 Of Face,Lips,& Throat PMH/Surg Hx/FS Hx/Imm Hx Endocrine/Hematology History: Denies: Hx Diabetes Cardiovascular History: Reports: Hx Hypertension Respiratory History: Reports: Hx Asthma GI History: Reports: Hx Ulcer Musculoskeletal History: Reports: Hx Back Problems Denies: Hx Arthritis, Hx Osteoporosis Sensory History: Denies: Hx Contacts or Glasses, Hx Legally Blind, Hx Deafness, Hx Hearing Aid Opthamlomology History: Denies: Hx Contacts or Glasses, Hx Legally Blind Neurological History: Reports: Hx Seizures Psychiatric History: Reports: Hx Anxiety, Hx Attention Deficit Hyperactivity Disorder, Hx Depression, Hx Inpatient Treatment, Hx Community Mental Health Tx, Hx Suicide Attempt, Hx Substance Abuse Denies: Hx Eating Disorder, Hx of Violent Episodes Against Others - Surgical History Surgery Procedure, Year, and Place: none - Immunization History Immunizations Up to Date: Unable to Obtain/Confirm Infectious Disease History: Unable to Obtain/Confirm Infectious Disease History: Reports: Hx Hepatitis Denies: Hx of Known/Suspected MRSA, Traveled Outside the [place] in Last 30 Days - Family History Known Family History: Negative: Blood Disorder - Social History Alcohol Use: Daily Alcohol Amount: ETOH use this date Hx Substance Use: Yes Substance Use Type: Reports: Heroin Substance Use Comment - Amount & Last Used: states clean 3 years Smoking Status (MU): Light Every Day Tobacco Smoker Type: Cigarettes Amount Used/How Often: 1/4 pack day Review of Systems Positive: Chest Pain - left lateral pain Positive: Other - left upper back pain Neurological: Other - EtOH intoxication Positive: Other - manic, combative All Other Systems Reviewed And Are Negative: Yes Physical Exam - Summary Physical Exam Summary: Appearance: Well-appearing, Well-nourished, lying in bed comfortable Skin: Warm, diaphoretic, no obvious rash Eyes: sclera anicteric, no conjunctival pallor ENT: mucous membranes moist Neck: deferred Respiratory: No signs of respiratory distress Cardiovascular: Appears well perfused, pulses are nml, Tachycardia Abdomen: deferred Musculoskeletal: Moving all 4 extremities without obvious discomfort, complaining of left lateral chest and left upper back pains Neurological: Awake and alert, mentation is normal, speech is fluent and appropriate, tremulous Psychiatric: affect is normal, does not appear anxious or depressed Triage Information Reviewed: Yes Vital Signs On Initial Exam: Initial Vitals Temp Pulse Resp BP Pulse Ox 98.5 F 124 16 128/90 94 07/24/18 19:20 07/24/18 19:20 07/24/18 19:20 07/24/18 19:20 07/24/18 19:20 Vital Signs Reviewed: Yes Diagnostics - Vital Signs Vital Signs Temp Pulse Resp BP Pulse Ox 07/24/18 19:20 98.5 F 124 16 128/90 94 - Laboratory Result Diagrams: 07/25/18 06:41 Lab Statement: Any lab studies that have been ordered have been reviewed, and results considered in the medical decision making process. Re-Evaluation - Re-Evaluation First Eval Re-Evaluation Time: 06:00 Change: Improved Comment: Patient is able to ambulate well, but he is tremulous. He understands the potential need for admission for EtOH detox. Course/Dx - Course Course Of Treatment: The patient is a 28 y/o M presenting to [facility] with a chief complaint of alcohol intoxication starting tonight GAME [employer]STER. The pt and his friend were in a cab in [place] when his friend left him in the cab to pay, but the pt was unable to pay due to his inebriated condition. The structured cabling technician called police dispatch for help with the situation, where the pt admitted to drinking a handle of vodka today but denies other substance use. Pt combative on arrival. When the pt awoke, the physical exam reveals that he is tremulous with tachycardia, diaphoresis, and is complaining of left lateral chest and left upper back pains. In the ED course, upon arrival, the pt was combative with staff and police. He was treated with Haldol, Ativan, Ns, and Librium. During his time in the ED, the pt urinated on himself. At 0600, the pt was able to ambulate but he has been tremulous. I spoke with Dr. Schafer, hospitalist, who will overview the pt's current condition and sign-out the pt to Dr. Zelaya. The patient will be a sign-out to Dr. Geronimo Goyal MD, at shift change at 0700 pending imaging, lab results, and disposition. - Diagnoses Provider Diagnoses: Alcohol abuse, Alcohol intoxication Discharge - Sign-Out/Discharge Documenting (check all that apply): Sign-Out Patient Signing out patient TO: Geronimo Goyal - The patient will be a sign-out to Dr. Geronimo Goyal MD, at shift change at 0700 pending imaging, lab results, and disposition. - Discharge Plan Patient Education Materials: Abuse of Alcohol (ED) Referrals: [facility] [place] [Outside] [facility] [Outside] [facility] - Residential Facility [Outside] - Attestation Statements Document Initiated by Scribe: Yes Documenting Scribe: Gloria Muñoz Provider For Whom Scribe is Documenting (Include Credential): Dr. Olvin Solorzano MD Scribe Attestation: Gloria Hooks, scribed for Dr. Olvin Solorzano MD on 07/25/18 at 0710. Scribe Documentation Reviewed: Yes Provider Attestation: The documentation as recorded by the scribe, Gloria Toni accurately reflects the service I personally performed and the decisions made by me, Dr. Olvin Solorzano MD
[2018-07-25] MEDS ORDERED: NS 0.9% 1000 ML* 2,000 ML IV ONE (06:06)
[2018-07-25] MEDS ORDERED: chlordiazePOXIDE CAP* 25 MG PO ONE (06:07)
[2018-07-25 07:05] LABS: ABS Basophils 0 10^3/ul (0-0.2); ABS Eosinophils 0.1 10^3/ul (0-0.6); ABS Lymphocytes 2.1 10^3/ul (1.0-4.8); ABS Monocytes 0.6 10^3/ul (0-0.8); ABS Neutrophils 2.4 10^3/ul (1.5-7.7); ABS Nucleated RBC 0 10^3/ul; Eosinophil % 1.3 % (0-6); Hematocrit 47 % (42-52); Hemoglobin 16.2 g/dl (14.0-18.0); Lymphocyte % 39.7 % (25-47); Mean Corpuscular HGB Conc 35 g/dl (31-36); Mean Corpuscular Hemoglobin 33 pg (27-31); Mean Corpuscular Volume 95 fL (80-94); Mean Platelet Volume 7.6 um3 (7.4-10.4); Nucleated Red Blood Cells % 0.2; Platelet Count 143 10^3/ul (150-450); Red Blood Count 4.93 10^6/ul (4.00-5.40); Red Cell Distribution Width 15 % (10.5-15); White Blood Count 5.2 10^3/ul (3.5-10.8)
--- NOTE | 2018-07-25 07:20 | ED ---
Progress - Progress Note Progress Note: This patient was signed out from Dr. Solorzano on shift change awaiting labs, imaging, and dispo. Rib Xray shows, on fracture. Pending official report. Dr. Solorzano contacted the hospitalist and they have agreed to admit the patient. Dx alcoholism Re-Evaluation - Re-Evaluation First Eval Re-Evaluation Time: 06:00 Change: Improved Comment: Patient is able to ambulate well, but he is tremulous. He understands the potential need for admission for EtOH detox. Course/Dx - Diagnoses Provider Diagnoses: Acute alcohol intoxication with alcoholism Discharge - Sign-Out/Discharge Documenting (check all that apply): Patient Departure - admitted , Receiving Sign-Out Receiving patient FROM: Olvin Solorzano - Discharge Plan Patient Education Materials: Abuse of Alcohol (ED) Referrals: [facility] [Outside] [facility] - Residential Facility [Outside] [facility] [place] [Outside] - Attestation Statements Document Initiated by Scribe: Yes Documenting Scribe: Bong Lobato Provider For Whom Scribe is Documenting (Include Credential): Geronimo Goyal MD Scribe Attestation: Bong Hooks, scribed for Geronimo Goyal MD on 07/25/18 at 0733.
[2018-07-25 07:34] LABS: EGFR Non-African American 127.9 (>60)
--- NOTE | 2018-07-25 07:52 | RAD ---
HISTORY: pain,possible trauma COMPARISONS: None VIEWS: 3 , Frontal view of the chest with frontal and oblique views of the left hemithorax FINDINGS: There is no displaced rib fracture or pneumothorax. The visualized lungs are clear. IMPRESSION: NO DISPLACED RIB FRACTURE OR PNEUMOTHORAX. R0
[2018-07-25] MEDS ORDERED: Thiamine IV* 100 MG/ML 2 ML VIAL IM ONE ×2 (08:28→09:21)
[2018-07-25] MEDS ORDERED: LORazepam INJ* 2 MG/ML 1 ML VIAL IV PUSH SCH (09:00)
[2018-07-25] MEDS ORDERED: Acetaminophen TAB* 325 MG PO PRN (09:21)
[2018-07-25] MEDS: LORazepam TAB(*) 1 MG PO SCH ×7 (09:55→20:37)
[2018-07-25] MEDS ORDERED: Ketorolac INJ* 30 MG/ML 1 ML VIAL IV PUSH ONE (10:00)
[2018-07-25] MEDS ORDERED: Magnesium Sulfate IV* 3 GM in NS 0.9% 100 ML* 100 ML IVPB ONE (10:26)
[2018-07-25] MEDS ORDERED: Buprenorphine/Naloxone 8-2 MG SL TAB* 1 TAB PO ONE (10:27)
[2018-07-25] MEDS: Thiamine TAB* 100 MG TAB PO SCH (10:28)
[2018-07-25] MEDS: Folic Acid TAB* 1 MG PO SCH (10:28)
[2018-07-25] MEDS: Multivitamins/Minerals TAB PO SCH (10:28)
[2018-07-25] MEDS ORDERED: Mouth Piece, Nicotine* 1 EACH CARTRIDGE INH PRN ×2 (10:34)
[2018-07-25] MEDS ORDERED: Nicotine Inhaler* 10 MG AMP INH PRN (10:34)
[2018-07-25] MEDS: Acetaminophen TAB* 325 MG PO PRN ×2 (11:25→20:37)
--- NOTE | 2018-07-25 14:37 | HP ---
HISTORY AND PHYSICAL: DATE OF ADMISSION: 07/25/18 PROVIDER: Michael Sandhu NP. PRIMARY CARE PROVIDER: Dr. Braden Landry (please note the patient was set up to follow up with Dr. Landry last hospitalization; however, he never made his followup appointment). ATTENDING PHYSICIAN: Dr. Valencia * (report dictated by Michael Sandhu NP). CHIEF COMPLAINT: The patient was brought in by [place] [employer] with a chief complaint of alcohol intoxication. HISTORY OF PRESENT ILLNESS: Mr. Doe is a 28-year-old male with a past medical history of alcohol abuse with history of withdrawal seizures, tobacco abuse, who was brought in by [place] [employer] with a chief complaint of alcohol intoxication. Per the emergency department staff, the patient and his friend were in a cab in [place] when his friend left him to pay for the cab, then patient was unable to do so due to his inebriated condition, and the cable respooler called police for help with the situation and the patient was combative on arrival. The patient was combative and intoxicated, and he was brought to the emergency department for further evaluation. In the emergency department, the patient was combative on arrival. His serum alcohol level is 270. The patient was brought in last evening and the plan was to discharge him; however, the patient has shown signs of withdrawal overnight with tremors and diaphoresis. The patient has a past medical history of alcohol withdrawal seizures. On evaluation in the emergency department, the patient is lying in bed. He is found to be alert and oriented x3. He is noted to be diaphoretic with generalized tremors. He does not remember the events of last night. He reports his last hospitalization was earlier this month on 07/15/18, in which the patient had a seizure with a fall off a porch onto concrete and was found to have atrial fibrillation with rapid ventricular response as well as noted to have some withdrawal symptoms during that hospitalization. The patient reports he drinks approximately a liter of vodka a day. He denies any other drug abuse and reports he has a history of IV heroin drug abuse and is currently on Suboxone and which he states he takes daily. He currently complains of left rib pain. Denies shortness of breath. He did have a rib x- ray in the emergency department, which was negative for fracture or pneumothorax. The patient will be admitted to the hospitalist service for alcohol withdrawal. PAST MEDICAL HISTORY: 1. History of polysubstance abuse. 2. Long-term history of alcohol abuse. The patient reports he started drinking approximately 2 years ago heavily with history of withdrawal seizures in the past. 3. History of heroin abuse, currently on Suboxone. 4. History of hepatitis C. 5. History of depression with suicidal ideation. 6. History of asthma. 7. History of atrial fibrillation x2, in which he converted on his own. 8. Psoriasis. The patient reports he was diagnosed by an [facility] incident response lead recently. CURRENT MEDICATIONS: Suboxone 8 mg p.o. daily. ALLERGIES: BEE VENOM, HALDOL, PROMETHAZINE, BEE STING, PHENERGAN. FAMILY HISTORY: The patient is unclear if there is a family history of heart disease, cancer, diabetes, or stroke. SOCIAL HISTORY: The patient reports he smokes approximately a pack of cigarettes a day. He has a history of IV drug abuse in the past, but denies any recent use, reporting 4 years ago was the last time he injected. He reports he drinks a liter of vodka a day. He states that he has gone to rehab at least 10 times in the past. Surrogate decision maker is his mother, Bria Deluna. REVIEW OF SYSTEMS: A 14-point review of systems was performed. All the pertinent positives and negatives are mentioned in the history of present illness. Otherwise, are negative. PHYSICAL EXAMINATION GENERAL APPEARANCE: A 28-year-old male, lying in the emergency department stretcher, alert and oriented x3, with noted diaphoresis and generalized tremors. Appropriate to situation. VITAL SIGNS: Temperature 98.2, heart rate 86, respirations 18, pulse oximetry 97 % on room air, blood pressure 117/65. HEENT: Head is normocephalic, atraumatic. Pupils are equal and reactive to light. Oropharynx is clear. Moist mucous membranes. He has a dry scaly skin noted on his scalp, forehead, ear, which appears to psoriasis-like plaques. NECK: Supple. LUNGS: Clear to auscultation bilaterally. Good aeration throughout. No accessory muscle use. CARDIAC: S1, S2. Regular rate and rhythm. No murmur, rub, or gallop appreciated. ABDOMEN: Soft, nontender, nondistended. Normal bowel sounds throughout. Flat. EXTREMITIES: Moves all extremities equally. Strength is 5/5 throughout. No clubbing, cyanosis, or edema. NEUROLOGIC: Alert and oriented x3. No focal deficits noted. Again, generalized tremors. SKIN: The patient has head-to-toe circular flat scaly lesions over his body in which he reports has been diagnosed with psoriasis, not currently on any medication. ASSESSMENT AND PLAN: Mr. Doe is a 28-year-old male with a past medical history of alcohol abuse with a history of withdrawal seizures, history of prior IV heroin drug use, polysubstance abuse, depression with suicidal ideation , history of atrial fibrillation with rapid ventricular response, psoriasis, hepatitis C, and tobacco abuse, who presented to the emergency department last evening after being picked up by the police for being intoxicated and combative and started to have alcohol withdrawal symptoms while in the emergency department. Hospital Medicine will admit him for alcohol withdrawal. 1. Alcohol withdrawal with history of seizures. The patient has not had a seizure since coming to the emergency department; however, he does have a significant history of withdrawal seizures in the past. He denies ever having to be intubated, but has a history of requiring ICU care during withdrawal in the past. He has received 1 dose of Librium of 100 mg in the emergency department. We will start the patient on Ativan p.o. scheduled taper for seizure prophylaxis and per the [facility] protocol as well as the p.o. Ativan detox protocol with monitoring q.2-hour symptoms. The patient has received thiamine, multivitamin, folic acid in the emergency department. He will be placed on seizure precautions. He received 2 liters of normal saline in the emergency department. Currently, he is alert and oriented, does not appear to be oversedated. He does have signs of withdrawal with diaphoresis. Mild tachycardia and tremors. We will ask Social Work to follow up with the patient regarding a rehab for the patient. Continue daily multivitamin, folic acid, and thiamine. 2. History of opiate abuse. Continue Suboxone 8 mg/2 mg sublingual film daily. 3. Gastroesophageal reflux disease. Continue Pepcid 20 mg p.o. b.i.d. 4. Tobacco abuse. We will start nicotine patch. Smoking cessation. 5. Depression. We will continue Seroquel 100 mg p.o. at bedtime with hold parameters for sedation. Continue clonidine 0.3 mg p.o. daily with hold parameters for sedation. 6. DVT prophylaxis: Low risk. 7. Code status: Full code. 8. Hospitalization: Observation to the medical unit. TIME SPENT: Approximately 60 minutes was spent on this admission. This case was discussed with attending physician, Dr. Valencia, who agrees with plan of care. MICHAEL SANDHU, SUPERVISOR [employer] [id number]/[facility] #: [id number] ERNESTO
[2018-07-25] MEDS: Famotidine TAB* 20 MG PO SCH (20:38)
[2018-07-25] MEDS ORDERED: QUEtiapine TAB* 100 MG PO SCH (21:00)
[2018-07-26] MEDS: LORazepam TAB(*) 1 MG PO SCH ×6 (00:20→08:16)
[2018-07-26] MEDS: Acetaminophen TAB* 325 MG PO PRN ×2 (04:40→11:00)
[2018-07-26] MEDS: Folic Acid TAB* 1 MG PO SCH (07:56)
[2018-07-26] MEDS: Multivitamins/Minerals TAB PO SCH (07:56)
[2018-07-26] MEDS: Thiamine TAB* 100 MG TAB PO SCH (07:56)
[2018-07-26] MEDS: Famotidine TAB* 20 MG PO SCH (07:58)
[2018-07-26 08:32] LABS: ABS Basophils 0 10^3/ul (0-0.2); ABS Eosinophils 0.1 10^3/ul (0-0.6); ABS Lymphocytes 0.7 10^3/ul (1.0-4.8); ABS Monocytes 0.5 10^3/ul (0-0.8); ABS Neutrophils 2.6 10^3/ul (1.5-7.7); ABS Nucleated RBC 0 10^3/ul; Eosinophil % 1.6 % (0-6); Hematocrit 41 % (42-52); Lymphocyte % 18.3 % (25-47); Mean Corpuscular HGB Conc 34 g/dl (31-36); Mean Corpuscular Hemoglobin 32 pg (27-31); Mean Corpuscular Volume 95 fL (80-94); Nucleated Red Blood Cells % 0.1; Platelet Count 113 10^3/ul (150-450); Red Blood Count 4.32 10^6/ul (4.00-5.40); Red Cell Distribution Width 14 % (10.5-15); White Blood Count 3.9 10^3/ul (3.5-10.8)
[2018-07-26 08:44] LABS: EGFR Non-African American 96.7 (>60)
[2018-07-26] MEDS ORDERED: Multivitamins/Minerals TAB PO SCH (09:00)
[2018-07-26] MEDS ORDERED: Thiamine TAB* 100 MG TAB PO SCH (09:00)
[2018-07-26] MEDS ORDERED: Nicotine PATCH 21 MG/24 HR* PATCH TRANSDERM SCH (09:00)
[2018-07-26] MEDS ORDERED: Folic Acid TAB* 1 MG PO SCH (09:00)
[2018-07-26] MEDS ORDERED: Buprenorphine/Naloxone 8-2 MG SL TAB* 1 TAB PO SCH (09:00)
[2018-07-26] MEDS ORDERED: Magnesium Oxide TAB* 400 MG PO SCH (10:00)
[2018-07-26 10:34] VITALS: BP 128/75
--- NOTE | 2018-07-27 08:26 | DS ---
DISCHARGE SUMMARY: DATE OF ADMISSION: DATE OF DISCHARGE: 07/26/18. HOSPITAL COURSE: This 28-year-old man was brought in by the police department, who was apparently intoxicated with an alcohol. He was in a cab with a friend in [place]. The patient could not get out of the cab. The cabinet installer called the police. The patient was somewhat combative with the police. His alcohol level was 270 in the emergency room. He complained of some left rib pain to me at the time of discharge. This may have been related to his fall earlier this month. The patient was given intravenous fluids with usual medications, some vitamins. He was in stable condition at the time of discharge. He indicated to me that he had not picked up his chlordiazepoxide prescription yet, I told him he could do that and he is to taper himself off alcohol. He had been drinking heavily for 2 days by his history. He was very slightly tender in the left lateral lower ribs. X-ray did not show any evidence of fracture. FINAL DIAGNOSES: 1. Acute alcohol intoxication. 2. Tobacco use. 3. History of alcohol withdrawal seizures. 4. Polysubstance abuse. 5. History of paroxysmal atrial fibrillation. DISCHARGE MEDICATIONS: 1. Quetiapine 100 mg at bedtime. 2. Clonidine 0.3 mg daily p.r.n. 3. Melatonin 3 mg daily p.r.n. 4. Suboxone 8/2 sublingual film 1 daily. 5. Famotidine 20 mg b.i.d. 6. Chlordiazepoxide as prescribed. 7. Nicotine patch 21 mg per day. 8. Thiamine 200 mg daily. The patient will likely have to follow up in the [facility]. DISCHARGE CONDITION: STABLE DISCHARGE DISPOSITON: HOME [id number]/[facility] #: [id number] [facility] CENTERJessica
[2018-07-27] MEDS ORDERED: Nicotine Patch Removal NOTE PATCH OFF SCH (09:00)
== END 2018-07-26 11:55 | disposition home or self-care (01) ==
LOC: ED 19:12 → MED 07-25 08:27
PROVIDERS: ADMIT Internal Medicine; ATTEND Internal Medicine
DX: F10.239 Alcohol dependence with withdrawal, unspecified (principal); F10.229 Alcohol dependence with intoxication, unspecified; F17.210 Nicotine dependence, cigarettes, uncomplicated; F19.10 Other psychoactive substance abuse, uncomplicated; I48.0 Paroxysmal atrial fibrillation; B19.20 Unspecified viral hepatitis C without hepatic coma; Z79.899 Other long term (current) drug therapy; Z88.8 Allergy status to other drugs, medicaments and biological substances; R07.89 Other chest pain; F11.20 Opioid dependence, uncomplicated; F32.9 Major depressive disorder, single episode, unspecified
CPT/HCPCS: 36415; 80048; 80053; 80076; 80320; 83735; 85025; 86703; 96365; 96366; 96372; 96375; 99284; A9270-GY; G0378; G0480; J1630; J1885; J2060; J3411; J3475

== ENCOUNTER 2018-09-16 09:34 | Inpatient (IN) | payer OTHER ==
[2018-09-16] MEDS ORDERED: Benzoin Compound STICK ONE (10:01)
[2018-09-16] MEDS ORDERED: Thiamine IV* 100 MG, Folic Acid IV* 1 MG, Multiple Vitamin IV ADULT* 10 ML in NS 0.9% 1... IV ONE (10:07)
[2018-09-16 10:20] LABS: ABS Basophils 0 10^3/ul (0-0.2); ABS Eosinophils 0 10^3/ul (0-0.6); ABS Lymphocytes 0.8 10^3/ul (1.0-4.8); ABS Monocytes 0.4 10^3/ul (0-0.8); ABS Nucleated RBC 0 10^3/ul; Eosinophil % 0.2 % (0-6); Hematocrit 44 % (42-52); Hemoglobin 15.2 g/dl (14.0-18.0); Lymphocyte % 15.8 % (25-47); Mean Corpuscular HGB Conc 34 g/dl (31-36); Mean Corpuscular Hemoglobin 32 pg (27-31); Mean Corpuscular Volume 92 fL (80-94); Mean Platelet Volume 7.3 fL (7.4-10.4); Nucleated Red Blood Cells % 0.1; Platelet Count 184 10^3/ul (150-450); Red Blood Count 4.81 10^6/ul (4.00-5.40); Red Cell Distribution Width 13 % (10.5-15); White Blood Count 5.3 10^3/ul (3.5-10.8)
[2018-09-16 10:36] LABS: EGFR Non-African American 141.2 (>60)
[2018-09-16] MEDS ORDERED: Ondansetron INJ* 2 MG/ML VIAL IV ONE (10:44)
[2018-09-16] MEDS ORDERED: chlordiazePOXIDE CAP* 25 MG PO ONE ×2 (11:12→11:15)
[2018-09-16] MEDS ORDERED: LORazepam INJ* 2 MG/ML 1 ML VIAL IV PUSH ONE ×3 (11:14→12:45)
[2018-09-16 12:37] LABS: Urine Appearance Cloudy; Urine Blood Negative (Negative); Urine Color Yellow; Urine Ketones Negative (Negative); Urine Protein Negative (Negative); Urine Specific Gravity 1.021 (1.010-1.030); Urine Urobilinogen Negative (Negative)
--- NOTE | 2018-09-16 12:55 | ED ---
Substance Abuse/Use - HPI Summary HPI Summary: Patient is a 28-year-old alcoholic male presenting to the ED with a detox request. He states he drinks approximately 1 L of vodka per day. He has been in the ED and admitted into the ICU at different hospitals in the past for detox and subsequent seizures related to the detox. He has never been diagnosed with a seizure disorder. He has been given Ativan and Keppra in the past with some relief. He states over the past few days he has been extremely diaphoretic, abdominal pain, severe tremors with numbness and tingling in the bilateral hands, nausea without vomiting, headache and visual changes despite continuing to drink alcohol. He states he has ceased alcohol for approximately 2 months in the past and had symptoms similar to these. He states he continues to drink alcohol to try to suppress the detoxification feelings, however the symptoms remain. Last alcohol use was last evening approximately 10 hours ago. - History Of Current Complaint Chief Complaint: EDDetoxRequest Stated Complaint: POSS SEIZURES/ALCOHOL WITHDRAWAL Time Seen by Provider: 09/16/18 09:50 Hx Obtained From: Patient Ingestion History: Type/Name Of Drug - alcohol - significant, 1 L per day Overdose Characteristics: Oral Timing Of Abuse: Daily Severity Initially: Severe Severity Currently: Severe Character: Anxious, Frustrated Alleviating Factor(s): Nothing Associated Signs And Symptoms: Appetite Change, Social Withdrawal, Social Isolation, Delirium Tremors, Diaphoretic, Tremulous, Nausea, Palpitations Related Hx: Drug/Alcohol Last Used @ - last evening (9 hours ago) - Risk Factor(s) Completed Suicide Risk Factors: Male - Allergies/Home Medications Allergies/Adverse Reactions: Allergies Allergy/AdvReac Type Severity Reaction Status Date / Time bee venom protein (honey bee) Allergy Anaphylatic Verified 09/16/18 09:47 Shock haloperidol [From Haldol] Allergy See Comment Verified 09/16/18 09:47 promethazine Allergy See Comment Verified 09/16/18 09:47 Home Medications: Home Medications Buprenorphine HCl/Naloxone HCl [Suboxone 12 mg-3 mg Sl Film] 1 film SL DAILY 03/29 [History Confirmed 09/16/18] Quetiapine Fumarate [Seroquel 50 mg tab] 50 mg PO BEDTIME 09/16/18 [History Confirmed 09/16/18] PMH/Surg Hx/FS Hx/Imm Hx Previously Healthy: Yes Endocrine/Hematology History: Denies: Hx Diabetes Cardiovascular History: Reports: Hx Hypertension Respiratory History: Reports: Hx Asthma GI History: Reports: Hx Ulcer Musculoskeletal History: Reports: Hx Back Problems Denies: Hx Arthritis, Hx Osteoporosis Sensory History: Denies: Hx Contacts or Glasses, Hx Legally Blind, Hx Deafness, Hx Hearing Aid Opthamlomology History: Denies: Hx Contacts or Glasses, Hx Legally Blind Neurological History: Reports: Hx Seizures Psychiatric History: Reports: Hx Anxiety, Hx Attention Deficit Hyperactivity Disorder, Hx Depression, Hx Inpatient Treatment, Hx Community Mental Health Tx, Hx Suicide Attempt, Hx Substance Abuse Denies: Hx Eating Disorder, Hx of Violent Episodes Against Others - Surgical History Surgery Procedure, Year, and Place: 4 skin grafts - Immunization History Hx Pertussis Vaccination: No Immunizations Up to Date: Yes Infectious Disease History: No Infectious Disease History: Reports: Hx Hepatitis Denies: Hx of Known/Suspected MRSA, Traveled Outside the [place] in Last 30 Days - Family History Known Family History: Negative: Blood Disorder - Social History Occupation: Unemployed Lives: Alone Alcohol Use: Daily Alcohol Amount: 1L/ day Hx Substance Use: Yes Substance Use Type: Reports: Heroin, Marijuana Substance Use Comment - 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 Smoking Status (MU): Light Every Day Tobacco Smoker Type: Cigarettes Amount Used/How Often: 1/4 pack day Review of Systems Negative: Fever, Chills, Fatigue, Skin Diaphoresis Negative: Blurred Vision, Diplopia Positive: Palpitations. Negative: Chest Pain Negative: Shortness Of Breath, Cough Positive: Nausea. Negative: Abdominal Pain, Vomiting, Diarrhea Negative: Arthralgia, Myalgia Positive: Headache Positive: Anxious All Other Systems Reviewed And Are Negative: Yes Physical Exam Triage Information Reviewed: Yes Vital Signs On Initial Exam: Initial Vitals Temp Pulse Resp BP Pulse Ox 98.1 F 78 16 155/89 95 09/16/18 09:44 09/16/18 09:44 09/16/18 09:44 09/16/18 09:44 09/16/18 09:44 Vital Signs Reviewed: Yes Appearance: Positive: Ill-Appearing Skin: Positive: Diaphoretic Head/Face: Positive: Normal Head/Face Inspection Eyes: Positive: Conjunctiva Inflammed ENT: Positive: Pharynx normal Neck: Positive: No Lymphadenopathy Respiratory/Lung Sounds: Positive: Clear to Auscultation, Breath Sounds Present Cardiovascular: Positive: IRR. Negative: Leg Edema Left, Leg Edema Right Abdomen Description: Positive: Soft Neurological: Positive: Other - Severe tremors at rest, abnormal gait, unable to assess [id number] or heel to toe. A and O 3 Psychiatric: Positive: Anxious - Sharmin Coma Scale Best Eye Response: 4 - Spontaneous Best Motor Response: 6 - Obeys Commands Best Verbal Response: 5 - Oriented Coma Scale Total: 15 Diagnostics - Vital Signs Vital Signs Temp Pulse Resp BP Pulse Ox 09/16/18 12:00 15 09/16/18 11:51 14 152/94 09/16/18 11:50 15 09/16/18 11:25 22 09/16/18 11:00 24 09/16/18 10:00 13 09/16/18 09:57 16 09/16/18 09:54 128/106 09/16/18 09:44 98.1 F 78 16 155/89 95 - Laboratory Lab Results: Lab Results 09/16/18 09/16/18 09/16/18 Range/Units 10:03 10:03 10:08 WBC 5.3 (3.5-10.8) 10^3/ul RBC 4.81 (4.00-5.40) 10^6/ul Hgb 15.2 (14.0-18.0) g/dl Hct 44 (42-52) % MCV 92 (80-94) fL MCH 32 H (27-31) pg MCHC 34 (31-36) g/dl RDW 13 (10.5-15) % Plt Count 184 (150-450) 10^3/ul MPV 7.3 L (7.4-10.4) fL Neut % (Auto) 76.0 (38-83) % Lymph % (Auto) 15.8 L (25-47) % [place] % (Auto) 7.5 H (0-7) % Eos % (Auto) 0.2 (0-6) % Baso % (Auto) 0.5 (0-2) % Absolute Neuts (auto) 4.0 (1.5-7.7) 10^3/ul Absolute Lymphs (auto) 0.8 L (1.0-4.8) 10^3/ul Absolute Monos (auto) 0.4 (0-0.8) 10^3/ul Absolute Eos (auto) 0 (0-0.6) 10^3/ul Absolute Basos (auto) 0 (0-0.2) 10^3/ul Absolute Nucleated RBC 0 10^3/ul Nucleated RBC % 0.1 Sodium 137 (135-145) mmol/L Potassium 3.8 (3.5-5.0) mmol/L Chloride 98 L (101-111) mmol/L Carbon Dioxide 25 (22-32) mmol/L Anion Gap 14 H (2-11) mmol/L BUN 12 (6-24) mg/dL Creatinine 0.67 (0.67-1.17) mg/dL Est GFR ( Amer) 170.9 (>60) Est GFR (Non-Af Amer) 141.2 (>60) BUN/Creatinine Ratio 17.9 (8-20) Glucose 113 H (70-100) mg/dL Lactic Acid 2.7 H* (0.5-2.0) mmol/L Calcium 9.8 (8.6-10.3) mg/dL Total Bilirubin 0.60 (0.2-1.0) mg/dL AST 60 H (13-39) U/L ALT 73 H (7-52) U/L Alkaline Phosphatase 101 (34-104) U/L Total Protein 8.2 (6.4-8.9) g/dL Albumin 4.5 (3.2-5.2) g/dL Globulin 3.7 (2-4) g/dL Albumin/Globulin Ratio 1.2 (1-3) Urine Color Urine Appearance Urine pH (5-9) Ur Specific [place] (1.010-1.030) Urine Protein (Negative) Urine Ketones (Negative) Urine Blood (Negative) Urine Nitrate (Negative) Urine Bilirubin (Negative) Urine Urobilinogen (Negative) Ur Leukocyte Esterase (Negative) Urine Glucose (Negative) Salicylates < 2.50 (<30) mg/dL Urine Opiates Screen (None Detect) Acetaminophen < 15 mcg/mL Ur Barbiturates Screen (None Detect) Ur Phencyclidine Scrn (None Detect) Ur Amphetamines Screen (None Detect) U Benzodiazepines Scrn (None Detect) Urine Cocaine Screen (None Detect) U Cannabinoids Screen (None Detect) Serum Alcohol 59 H (<10) mg/dL 09/16/18 09/16/18 Range/Units 11:40 11:40 WBC (3.5-10.8) 10^3/ul RBC (4.00-5.40) 10^6/ul Hgb (14.0-18.0) g/dl Hct (42-52) % MCV (80-94) fL MCH (27-31) pg MCHC (31-36) g/dl RDW (10.5-15) % Plt Count (150-450) 10^3/ul MPV (7.4-10.4) fL Neut % (Auto) (38-83) % Lymph % (Auto) (25-47) % [place] % (Auto) (0-7) % Eos % (Auto) (0-6) % Baso % (Auto) (0-2) % Absolute Neuts (auto) (1.5-7.7) 10^3/ul Absolute Lymphs (auto) (1.0-4.8) 10^3/ul Absolute Monos (auto) (0-0.8) 10^3/ul Absolute Eos (auto) (0-0.6) 10^3/ul Absolute Basos (auto) (0-0.2) 10^3/ul Absolute Nucleated RBC 10^3/ul Nucleated RBC % Sodium (135-145) mmol/L Potassium (3.5-5.0) mmol/L Chloride (101-111) mmol/L Carbon Dioxide (22-32) mmol/L Anion Gap (2-11) mmol/L BUN (6-24) mg/dL Creatinine (0.67-1.17) mg/dL Est GFR ( Amer) (>60) Est GFR (Non-Af Amer) (>60) BUN/Creatinine Ratio (8-20) Glucose (70-100) mg/dL Lactic Acid (0.5-2.0) mmol/L Calcium (8.6-10.3) mg/dL Total Bilirubin (0.2-1.0) mg/dL AST (13-39) U/L ALT (7-52) U/L Alkaline Phosphatase (34-104) U/L Total Protein (6.4-8.9) g/dL Albumin (3.2-5.2) g/dL Globulin (2-4) g/dL Albumin/Globulin Ratio (1-3) Urine Color Yellow Urine Appearance Cloudy Urine pH 7.0 (5-9) Ur Specific [place] 1.021 (1.010-1.030) Urine Protein Negative (Negative) Urine Ketones Negative (Negative) Urine Blood Negative (Negative) Urine Nitrate Negative (Negative) Urine Bilirubin Negative (Negative) Urine Urobilinogen Negative (Negative) Ur Leukocyte Esterase Negative (Negative) Urine Glucose Negative (Negative) Salicylates (<30) mg/dL Urine Opiates Screen None detected (None Detect) Acetaminophen mcg/mL Ur Barbiturates Screen None detected (None Detect) Ur Phencyclidine Scrn None detected (None Detect) Ur Amphetamines Screen None detected (None Detect) U Benzodiazepines Scrn None detected (None Detect) Urine Cocaine Screen None detected (None Detect) U Cannabinoids Screen None detected (None Detect) Serum Alcohol (<10) mg/dL Result Diagrams: 09/16/18 10:03 09/16/18 10:03 Lab Statement: Any lab studies that have been ordered have been reviewed, and results considered in the medical decision making process. Course/Dx - Course Course Of Treatment: On arrival, patient appears extremely diaphoretic and ill. He is toxic appearing. His tremors are bilateral and severe even with arms not extended period he has severe sweating which have drenched through his clothing. He appears very anxious with severe symptoms of fidgety and restlessness. Tactile disturbances include paresthesias to the bilateral hands throughout. He has no auditory or visual disturbances. He does endorse a 9/10 headache which is constant and throbbing. He is oriented to person place and time. Alcohol level 25. CIWA score on arrival 25. He is given 1 mg IV Ativan as well as 25 mg Librium. 25 minutes later he continues to have CIWA score of 25. He was given another 2 mg IV Ativan. Discussed case with Dr. Hirsch, ICU who agrees to come see the patient. - Diagnoses Differential Diagnosis/HQI/PQRI: Positive: Acute Psychosis, Alcohol Abuse, Alcohol Withdrawal, Anxiety, Delirium Tremens, Drug Withdrawal Provider Diagnoses: Desire for detoxification, Alcohol withdrawal - Physician Notifications Discussed Care Of Patient With: Shea Hirsch MD - ICU Instructed by Provider To: Admit As Inpatient - Critical Care Time Critical Care Time: 30-74 min Discharge - Sign-Out/Discharge Documenting (check all that apply): Patient Departure - Discharge Plan Condition: Fair Disposition: ADMITTED TO [facility] - Billing Disposition and Condition Condition: FAIR Disposition: Admitted to [facility]
[2018-09-16] MEDS ORDERED: Acetaminophen TAB* 325 MG PO PRN ×2 (13:39)
[2018-09-16] MEDS ORDERED: NS 0.9% 1000 ML* 2,000 ML IV ONE (13:39)
[2018-09-16] MEDS ORDERED: Omeprazole CAP* 20 MG PO SCH (13:43)
[2018-09-16] MEDS ORDERED: NS 0.9% 1000 ML* 1,000 ML IV SCH (13:45)
[2018-09-16] MEDS ORDERED: Albuterol 2.5 MG/3 ML NEB.SOL* (0.083%) INH PRN (13:58)
[2018-09-16] MEDS ORDERED: chlordiazePOXIDE CAP* 10 MG PO ONE (14:00)
[2018-09-16] MEDS ORDERED: LORazepam INJ* 2 MG/ML 1 ML VIAL IV SCH (14:00)
--- NOTE | 2018-09-16 14:20 | PN ---
Progress Note - Progress Note Date of Service: 09/16/18
--- NOTE | 2018-09-16 14:21 | CONSULT ---
Consult Consult: Consultation Note -- Critical Care Requesting Physician: Dr Hightower (ER PHYSICIAN) Reason for consult: alcohol withdrawal Limitations in history/physical: none Date of consult: 09/16/2018 HPI: 28y M w/ history of alcohol abuse 1 bottle vodka daily, past substance abuse, past alcohol withdrawal seizures; comes to ER for not feeling well for 2 days, nausea/vom+, abd pain intermittent, chills sometimes. has not been taking as much alcohol for a few days either, less. no sick contacts. in ER, tachycardic, BP 150s. awake/alert. tremors+, flushed. afebrile. oriented , speaking clearly. no noticeable delusions/hallucinations/confusion apparent, no delirium apparent. noted alcohol level 59 on blood work, other labs noted without significant abnormality. given ativan , librium; states he feels a little better. ROS: negative except for pertinent positives mentioned above. PMHx: alcohol abuse, polysubstance abuse PSHx: none Family History: none Social History: Alcohol-daily 1 bottle vodka 1 liter, Smoking-no, Drug use-past Allergies: Allergies Allergy/AdvReac Type Severity Reaction Status Date / Time bee venom protein (honey bee) Allergy Anaphylatic Verified 09/16/18 09:47 Shock haloperidol [From Haldol] Allergy See Comment Verified 09/16/18 09:47 promethazine Allergy See Comment Verified 09/16/18 09:47 Home Medications: Buprenorphine HCl/Naloxone HCl [Suboxone 12 mg-3 mg Sl Film] 1 film SL DAILY 03/29 [History Confirmed 09/16/18] Quetiapine Fumarate [Seroquel 50 mg tab] 50 mg PO BEDTIME 09/16/18 [History Confirmed 09/16/18] Tele: sinus tachycardia Vitals: Vital Signs Temp 98.1 F 09/16/18 09:44 Pulse 78 09/16/18 09:44 Resp 16 09/16/18 14:00 BP 152/94 09/16/18 11:51 Pulse Ox 95 09/16/18 09:44 Intake & Output 09/15/18 09/16/18 09/16/18 18:59 06:59 18:59 Weight 72.575 kg O2/Vent: RA Infusions: heplock Current Medications: Acetaminophen (Tylenol Tab*) 650 mg PO Q4H PRN PRN Reason: FEVER/PAIN Albuterol (Ventolin 2.5 Mg/3 Ml Neb.Shanna*) 2.5 mg INH Q2H PRN PRN Reason: SOB/WHEEZING Chlordiazepoxide (Librium Cap*) 25 mg PO DAILY MELANIE Folic Acid (Folvite Tab*) 1 mg PO DAILY MELANIE Sodium Chloride (Ns 0.9% 1000 Ml*) 2,000 mls @ 1,000 mls/hr IV .PER RATE ONE Stop: 09/16/18 15:38 Sodium Chloride (Ns 0.9% 1000 Ml*) 1,000 mls @ 125 mls/hr IV PER RATE MELANIE Stop: 09/16/18 21:44 Lorazepam (Ativan Inj*) 0 - 6 mg IV PUSH .PER [facility] PROTOCOL MELANIE; Protocol Multivitamins/Minerals (Theragran/Minerals Tab*) 1 tab PO DAILY MELANIE Non-Formulary Medication (Buprenorphine Hcl/Naloxone Hcl [Suboxone 12 Mg-3 Mg Sl Film]) 1 film SL DAILY MELANIE Omeprazole (Prilosec Cap*) 20 mg PO 0600 MELANIE Ondansetron HCl (Zofran Inj*) 4 mg IV Q6H PRN PRN Reason: NAUSEA Quetiapine Fumarate (Seroquel Tab*) 50 mg PO BEDTIME MELANIE Sucralfate (Carafate*) 1 gm PO AC MELANIE Thiamine HCl (Vitamin B-1 Tab*) 100 mg PO DAILY [facility] Physical Exam: General: awake, alert, no distress, no diaphoresis, flushed skin Head: normocephalic, atraumatic HEENT: no pallor, no icterus, moist mucous membranes Neck: soft, supple, no jvd, no stridor CVS: tachycardic, regular, no murmur Resp: bilateral air entry, no rhales, no wheeze, no rhonchi, no acc muscle use Abdomen: soft, nontender, nondistended, bowel sounds present Ext: pulses+, warm, no edema Skin: flushed face; areas of redness on arms and legs Neuro: awake, alert, orientedx3, moving all extremities, no gross focal deficit ; tremors+, no nystagmus; no hallucinations/delusions Labs: Laboratory Results - last 24 hr 09/16/18 09/16/18 09/16/18 10:03 10:03 10:08 WBC 5.3 RBC 4.81 Hgb 15.2 Hct 44 MCV 92 MCH 32 H MCHC 34 RDW 13 Plt Count 184 MPV 7.3 L Neut % (Auto) 76.0 Lymph % (Auto) 15.8 L [place] % (Auto) 7.5 H Eos % (Auto) 0.2 Baso % (Auto) 0.5 Absolute Neuts (auto) 4.0 Absolute Lymphs (auto) 0.8 L Absolute Monos (auto) 0.4 Absolute Eos (auto) 0 Absolute Basos (auto) 0 Absolute Nucleated RBC 0 Nucleated RBC % 0.1 Sodium 137 Potassium 3.8 Chloride 98 L Carbon Dioxide 25 Anion Gap 14 H BUN 12 Creatinine 0.67 Est GFR ( Amer) 170.9 Est GFR (Non-Af Amer) 141.2 BUN/Creatinine Ratio 17.9 Glucose 113 H Lactic Acid 2.7 H* Calcium 9.8 Magnesium 1.5 L Total Bilirubin 0.60 AST 60 H ALT 73 H Alkaline Phosphatase 101 Total Protein 8.2 Albumin 4.5 Globulin 3.7 Albumin/Globulin Ratio 1.2 Urine Color Urine Appearance Urine pH Ur Specific [place] Urine Protein Urine Ketones Urine Blood Urine Nitrate Urine Bilirubin Urine Urobilinogen Ur Leukocyte Esterase Urine Glucose Salicylates < 2.50 Urine Opiates Screen Acetaminophen < 15 Ur Barbiturates Screen Ur Phencyclidine Scrn Ur Amphetamines Screen U Benzodiazepines Scrn Urine Cocaine Screen U Cannabinoids Screen Serum Alcohol 59 H 09/16/18 09/16/18 11:40 11:40 WBC RBC Hgb Hct MCV MCH MCHC RDW Plt Count MPV Neut % (Auto) Lymph % (Auto) [place] % (Auto) Eos % (Auto) Baso % (Auto) Absolute Neuts (auto) Absolute Lymphs (auto) Absolute Monos (auto) Absolute Eos (auto) Absolute Basos (auto) Absolute Nucleated RBC Nucleated RBC % Sodium Potassium Chloride Carbon Dioxide Anion Gap BUN Creatinine Est GFR ( Amer) Est GFR (Non-Af Amer) BUN/Creatinine Ratio Glucose Lactic Acid Calcium Magnesium Total Bilirubin AST ALT Alkaline Phosphatase Total Protein Albumin Globulin Albumin/Globulin Ratio Urine Color Yellow Urine Appearance Cloudy Urine pH 7.0 Ur Specific [place] 1.021 Urine Protein Negative Urine Ketones Negative Urine Blood Negative Urine Nitrate Negative Urine Bilirubin Negative Urine Urobilinogen Negative Ur Leukocyte Esterase Negative Urine Glucose Negative Salicylates Urine Opiates Screen None detected Acetaminophen Ur Barbiturates Screen None detected Ur Phencyclidine Scrn None detected Ur Amphetamines Screen None detected U Benzodiazepines Scrn None detected Urine Cocaine Screen None detected U Cannabinoids Screen None detected Serum Alcohol Imaging: CT brain 09/16 - noted old changes/infarcts Assessment: 28y M w/ history of alcohol abuse 1 bottle vodka daily, past substance abuse, past alcohol withdrawal seizures; comes to ER for not feeling well for 2 days, nausea/vom+, abd pain intermittent, chills sometimes. has not been taking as much alcohol for a few days either, less. no sick contacts. Decreased alcohol intake for days also. At this time, assessment seems to be possible ALcohol withdrawal, but without delirium. HIENWA noted 28. must rule out other etiology for symptoms; no heroin use? withdrawal? check lipase/amylase to r/o pancreatitis given alcohol use also abd exam benign, hold on CT abd for now IVF hydration, thiamine/folate/mvi ativan PRN, librium po, valium PO also no clear sepsis, would monitor off abx. consider sending culture if any low grade temps; current wbc normal. check tsh check urine drug screen discussed with hospitalist service, seems stable for medical floor admission wtih good followup. Reconsult ICU if any sig change in mental status, worsening tachycardia or hemodyn change. Arujn Hirsch MD [employer] (Electronically Signed)
[2018-09-16 14:25] LABS: INR 0.94 (0.77-1.02)
[2018-09-16] MEDS ORDERED: chlordiazePOXIDE CAP* 25 MG ONE (14:33)
[2018-09-16] MEDS ORDERED: Magnesium Sulfate 2 GM IV* 2 GM/50 ML BAG IVPB ONE (14:47)
[2018-09-16] MEDS: LORazepam INJ* 2 MG/ML 1 ML VIAL IV PUSH SCH ×4 (15:04→22:37)
[2018-09-16] MEDS: Ondansetron INJ* 2 MG/ML VIAL IV PRN (17:23)
[2018-09-16] MEDS: Sucralfate TAB* 1 GM PO SCH (17:23)
[2018-09-16] MEDS ORDERED: Pneumococcal *Vac Polyvalent 0.5 ML VIAL IM ONE (19:00)
--- NOTE | 2018-09-16 19:47 | HP ---
AMENDED REPORT NOW INCLUDES COSIGNER DESIGNATION HISTORY AND PHYSICAL: DATE OF ADMISSION: 09/16/18 PRIMARY CARE PROVIDER: None. ATTENDING PHYSICIAN WHILE IN THE HOSPITAL: Som Block MD * (report dictated by Bill Mosley NP) CHIEF COMPLAINT: 1. Tremors. 2. EtOH abuse. 3. Abdominal discomfort. HISTORY OF PRESENT ILLNESS: Mr. Doe is a 28-year-old male patient who presents to our ER today complaining that he has been trying to wean himself off alcohol. He typically drinks about a liter of vodka a day and he has been cutting back down to half a liter, but he has been noticing that since the last couple of days he has been having some nausea, vomiting, epigastric abdominal discomfort, not really able to keep anything down but water. He has not been feeling well. He does note that today he had a seizure per the patient, which he has history of, particularly when he is starting to withdraw. He states the last drink was last night. He also noted that he was very shaky. He felt sweaty. He felt anxious. He felt palpitations in his heart. He was concerned that he may be withdrawing again. He is concerned because he could not keep anything down, so he came to the ER because he is familiar with the alcohol withdrawal from previous detoxes. He came in to the ED, he was evaluated. When he got here, again noted to be very tremulous, very tachycardic, sweaty, showing signs of clear withdrawal and we were asked to evaluate for admission. PAST MEDICAL HISTORY: Significant for: 1. EtOH abuse. 2. History of seizures from alcohol withdrawal. 3. Tobacco abuse. 4. Polysubstance abuse. 5. Heroin abuse. 6. Hepatitis C. 7. Depression. 8. Asthma. 9. AFib. 10. Psoriasis. PAST SURGICAL HISTORY: He has had 4 skin grafts to his right lower extremity. MEDICATIONS: Home meds include: 1. Seroquel 50 mg at bedtime. 2. Suboxone 1 tablet sublingual daily. ALLERGIES TO MEDICATIONS: Include HALDOL and COMPAZINE. FAMILY HISTORY: He states to his knowledge, his mother is healthy. He does not know his father. SOCIAL HISTORY: He is a pack a day smoker. He does drink about a liter of vodka a day. He states he is not using any other substances currently. Surrogate decision maker, he does not wish to appoint at this point. REVIEW OF SYSTEMS: There is no documented fever. He denies having any significant weight change. There is no double vision. He denies having any ear discharge. There is again no rhinorrhea. No sore throat. No thyroid enlargement. Denied having any chest pain. He denies having any orthopnea. There is no nocturnal dyspnea. There is epigastric abdominal pain with nausea and vomiting. There is no dysuria. There is no frequency. There was no seizure, no loss of consciousness. No pruritus and no skin ulcerations. Review of 14 systems completed, all others negative. PHYSICAL EXAMINATION GENERAL: At this time, Mr. Doe is a 28-year-old male patient. He is sitting in the ED stretcher. He does not appear to be in any acute distress. Appears to be well nourished, well developed. VITAL SIGNS: Blood pressure 152/94, pulse 107, respirations 14, his O2 saturation 95% on room air, temperature 98.1. HEENT: Head: Atraumatic and normocephalic. Eyes: EOMs are intact. Sclerae anicteric, not pale. Throat: Oral mucosa appears to be dry. No oropharyngeal erythema. NECK: Supple. LUNGS: Clear to auscultation. No wheezes, rales, or rhonchi. HEART: Sounds S1, S2. He is tachycardic. No murmurs, rubs, or gallops. ABDOMEN: Soft. It was flat. He had tenderness in the epigastric area. EXTREMITIES: Pulses were 2+ throughout. He is moving all 4 extremities with 5/ 5 strength. NEUROLOGICAL: He is awake. He is alert. He is oriented x3. He does have tremors noted to his upper and lower extremities. SKIN: Again, intact. LABORATORY DATA/DIAGNOSTIC STUDIES: WBC of 5.3, RBC of 4.81, hemoglobin of 15.2, hematocrit of 44, platelet count of 184,000. Sodium 137, potassium 3.8, chloride of 98, bicarb of 25, BUN 12, creatinine of 0.67, glucose of 113. Lactate 2.7. Calcium 9.8. Total bili 0.6, AST 60, ALT 70. Albumin 4.5. Urine obtained, it was negative. Toxicology was positive for alcohol only. He had a brain CT obtained today. It showed stable hypoattenuating foci in the bilateral basal ganglia that are unchanged since 07/15/18 exam, favored to be perivascular spaces in the patient of this age. As the patient has significant focal deficits, MRI is recommended. EKG shows sinus tachycardia. It is a difficult tracing given he has significant amount of tremors during the tracing, he has got artifact, he does appear to have LVH, normal axis, rate of 101 here, no ST elevations or T wave inversions were noted. Previous EKG did show AFib, which he is not exhibiting now. Old medical records were reviewed. ASSESSMENT AND PLAN: Mr. Doe is a 28-year-old male patient coming in to the ED today with complaints of EtOH abuse and now showing signs of withdrawal. He will be admitted under inpatient status for: 1. EtOH abuse with signs of EtOH withdrawal. At this point, I placed a social work consult. I am going to put him on the WAM protocol with standing Ativan. I have ordered seizure precautions. He has received a banana bag here in the ED and I will continue thiamine and B12. 2. Abdominal pain, nausea, vomiting. I expect this is probably from alcoholic gastritis. I will go ahead and put him on Carafate and PPI. If he continues to exhibit pain, I certainly will get a CAT scan, but his abdominal exam is benign and his labs appear to be benign. We will monitor. 3. Seizures. Again, it is probably secondary to EtOH abuse. We will put him on the WAM protocol. 4. Elevated lactic acid, probably secondary to previous seizure this morning. We will repeat this. I do not think he is actively infected. 5. History of tobacco abuse. Continue with supportive care. I have offered smoking cessation and counseling. 6. History of heroin abuse. Continue meds as prescribed. 7. History of hepatitis C. We will certainly try to get him set up with a PCP for treatment. 8. History of depression. Continue with supportive care. 9. Atrial fibrillation. He appears to be in a sinus tachycardia now. We will monitor for this. 10. Psoriasis. Continue his current meds as prescribed. 11. Asthma. Does not appear to be in any acute distress from this. His breathing is stable. I have ordered p.r.n. albuterol. 12. DVT prophylaxis. I have ordered SCDs. 13. Code status. Full code. 14. Fluids, electrolytes, and nutrition. I am going to put him on a clear liquid diet and I am going to give him 2 L of fluid wide open right now and then normal saline at 125 an hour. TIME SPENT: On admission 60 minutes, greater than half the time was spent face- to- face with the patient obtaining my history and physical; other half time was spent going over the plan of care with the patient and implementing plan of care. I discussed the plan of care with my attending, Dr. Block, he is in agreement. BILL MOSLEY, ATUL [id number]/CPS #: [id number] ERNESTO
[2018-09-16] MEDS: Omeprazole CAP* 20 MG PO SCH (20:59)
[2018-09-16] MEDS ORDERED: QUEtiapine TAB* 25 MG PO SCH (21:00)
[2018-09-17 07:43] LABS: ABS Basophils 0 10^3/ul (0-0.2); ABS Eosinophils 0 10^3/ul (0-0.6); ABS Lymphocytes 0.8 10^3/ul (1.0-4.8); ABS Monocytes 0.3 10^3/ul (0-0.8); ABS Neutrophils 2.1 10^3/ul (1.5-7.7); ABS Nucleated RBC 0 10^3/ul; Eosinophil % 1.2 % (0-6); Hematocrit 42 % (42-52); Hemoglobin 14.1 g/dl (14.0-18.0); Lymphocyte % 25.3 % (25-47); Mean Corpuscular HGB Conc 34 g/dl (31-36); Mean Corpuscular Hemoglobin 32 pg (27-31); Mean Corpuscular Volume 93 fL (80-94); Mean Platelet Volume 7.5 fL (7.4-10.4); Nucleated Red Blood Cells % 0.1; Platelet Count 109 10^3/ul (150-450); Red Blood Count 4.46 10^6/ul (4.00-5.40); Red Cell Distribution Width 14 % (10.5-15); White Blood Count 3.3 10^3/ul (3.5-10.8)
[2018-09-17] MEDS ORDERED: LORazepam TAB(*) 1 MG PO SCH ×2 (08:00→12:00)
[2018-09-17 08:05] LABS: EGFR Non-African American 134.3 (>60)
--- NOTE | 2018-09-17 08:13 | PN ---
Subjective Date of Service: 09/17/18 Interval History: Pt feels "sick". Had been vomiting x 3 days , denies abd pain. drinks 1 L of Vodka /day, smokes 1 PPD, denies drug use(last time-"years ago") Objective Active Medications: Acetaminophen (Tylenol Tab*) 650 mg PO Q4H PRN PRN Reason: FEVER/PAIN Albuterol (Ventolin 2.5 Mg/3 Ml Neb.Shanna*) 2.5 mg INH Q2H PRN PRN Reason: SOB/WHEEZING Buprenorphine/Naloxone (Suboxone 4 Mg-1 Mg Sl Film) 3 each SL FILM DAILY [facility] Chlordiazepoxide (Librium Cap*) 25 mg PO TID [facility] Folic Acid (Folvite Tab*) 1 mg PO DAILY [facility] Lorazepam (Ativan Inj*) 0 - 6 mg IV PUSH .PER [facility] PROTOCOL [facility]; Protocol Last Admin: 09/16/18 19:56 Dose: 3 mg Lorazepam (Ativan Tab(*)) 1 mg PO Q8H [facility] Multivitamins/Minerals (Theragran/Minerals Tab*) 1 tab PO DAILY [facility] Omeprazole (Prilosec Cap*) 20 mg PO BID [facility] Last Admin: 09/16/18 20:59 Dose: 20 mg Ondansetron HCl (Zofran Inj*) 4 mg IV Q6H PRN PRN Reason: NAUSEA Last Admin: 09/16/18 17:23 Dose: 4 mg Quetiapine Fumarate (Seroquel Tab*) 50 mg PO BEDTIME [facility] Last Admin: 09/16/18 20:59 Dose: 50 mg Sucralfate (Carafate*) 1 gm PO AC [facility] Last Admin: 09/16/18 17:23 Dose: 1 gm Thiamine HCl (Vitamin B-1 Tab*) 100 mg PO DAILY [facility] Vital Signs - 8 hr 09/17/18 09/17/18 09/17/18 01:55 02:30 04:07 Temperature 98.0 F Pulse Rate 119 96 Respiratory 20 20 20 Rate Blood Pressure 135/84 (mmHg) O2 Sat by Pulse 95 97 Oximetry 09/17/18 09/17/18 09/17/18 06:00 06:10 07:09 Temperature 98.6 F Pulse Rate 94 Respiratory 11 20 12 Rate Blood Pressure 126/73 (mmHg) O2 Sat by Pulse 95 Oximetry 09/17/18 08:03 Temperature 98.1 F Pulse Rate 93 Respiratory 16 Rate Blood Pressure 130/89 (mmHg) O2 Sat by Pulse 99 Oximetry Oxygen Devices in Use Now: Nasal Cannula Appearance: 28 yo M in nAD, aAOx3 Eyes: No Scleral Icterus, PERRLA Ears/Nose/Mouth/Throat: NL Teeth, Lips, Gums, Mucous Membranes Moist Neck: NL Appearance and Movements; NL JVP, Trachea Midline Respiratory: Symmetrical Chest Expansion and Respiratory Effort Cardiovascular: NL Sounds; No Murmurs; No JVD, RRR Abdominal: - - mild epigastric tenderness , no rebound, no guarding, BS+ Lymphatic: No Cervical Adenopathy Extremities: No Edema, No Clubbing, Cyanosis Skin: No Rash or Ulcers Neurological: Alert and Oriented x 3, NL Muscle Strength and Tone Result Diagrams: 09/17/18 06:59 09/17/18 06:59 Additional Lab and Data: Lab Results 09/16/18 09/16/18 09/16/18 Range/Units 10:03 10:03 10:08 WBC 5.3 (3.5-10.8) 10^3/ul RBC 4.81 (4.00-5.40) 10^6/ul Hgb 15.2 (14.0-18.0) g/dl Hct 44 (42-52) % MCV 92 (80-94) fL MCH 32 H (27-31) pg MCHC 34 (31-36) g/dl RDW 13 (10.5-15) % Plt Count 184 (150-450) 10^3/ul MPV 7.3 L (7.4-10.4) fL Neut % (Auto) 76.0 (38-83) % Lymph % (Auto) 15.8 L (25-47) % [place] % (Auto) 7.5 H (0-7) % Eos % (Auto) 0.2 (0-6) % Baso % (Auto) 0.5 (0-2) % Absolute Neuts (auto) 4.0 (1.5-7.7) 10^3/ul Absolute Lymphs (auto) 0.8 L (1.0-4.8) 10^3/ul Absolute Monos (auto) 0.4 (0-0.8) 10^3/ul Absolute Eos (auto) 0 (0-0.6) 10^3/ul Absolute Basos (auto) 0 (0-0.2) 10^3/ul Absolute Nucleated RBC 0 10^3/ul Nucleated RBC % 0.1 Sodium 137 (135-145) mmol/L Potassium 3.8 (3.5-5.0) mmol/L Chloride 98 L (101-111) mmol/L Carbon Dioxide 25 (22-32) mmol/L Anion Gap 14 H (2-11) mmol/L BUN 12 (6-24) mg/dL Creatinine 0.67 (0.67-1.17) mg/dL Est GFR ( Amer) 170.9 (>60) Est GFR (Non-Af Amer) 141.2 (>60) BUN/Creatinine Ratio 17.9 (8-20) Glucose 113 H (70-100) mg/dL Lactic Acid 2.7 H* (0.5-2.0) mmol/L Calcium 9.8 (8.6-10.3) mg/dL Total Bilirubin 0.60 (0.2-1.0) mg/dL AST 60 H (13-39) U/L ALT 73 H (7-52) U/L Alkaline Phosphatase 101 (34-104) U/L Total Protein 8.2 (6.4-8.9) g/dL Albumin 4.5 (3.2-5.2) g/dL Globulin 3.7 (2-4) g/dL Albumin/Globulin Ratio 1.2 (1-3) Urine Color Urine Appearance Urine pH (5-9) Ur Specific [place] (1.010-1.030) Urine Protein (Negative) Urine Ketones (Negative) Urine Blood (Negative) Urine Nitrate (Negative) Urine Bilirubin (Negative) Urine Urobilinogen (Negative) Ur Leukocyte Esterase (Negative) Urine Glucose (Negative) Salicylates < 2.50 (<30) mg/dL Urine Opiates Screen (None Detect) Acetaminophen < 15 mcg/mL Ur Barbiturates Screen (None Detect) Ur Phencyclidine Scrn (None Detect) Ur Amphetamines Screen (None Detect) U Benzodiazepines Scrn (None Detect) Urine Cocaine Screen (None Detect) U Cannabinoids Screen (None Detect) Serum Alcohol 59 H (<10) mg/dL 09/16/18 09/16/18 Range/Units 11:40 11:40 WBC (3.5-10.8) 10^3/ul RBC (4.00-5.40) 10^6/ul Hgb (14.0-18.0) g/dl Hct (42-52) % MCV (80-94) fL MCH (27-31) pg MCHC (31-36) g/dl RDW (10.5-15) % Plt Count (150-450) 10^3/ul MPV (7.4-10.4) fL Neut % (Auto) (38-83) % Lymph % (Auto) (25-47) % [place] % (Auto) (0-7) % Eos % (Auto) (0-6) % Baso % (Auto) (0-2) % Absolute Neuts (auto) (1.5-7.7) 10^3/ul Absolute Lymphs (auto) (1.0-4.8) 10^3/ul Absolute Monos (auto) (0-0.8) 10^3/ul Absolute Eos (auto) (0-0.6) 10^3/ul Absolute Basos (auto) (0-0.2) 10^3/ul Absolute Nucleated RBC 10^3/ul Nucleated RBC % Sodium (135-145) mmol/L Potassium (3.5-5.0) mmol/L Chloride (101-111) mmol/L Carbon Dioxide (22-32) mmol/L Anion Gap (2-11) mmol/L BUN (6-24) mg/dL Creatinine (0.67-1.17) mg/dL Est GFR ( Amer) (>60) Est GFR (Non-Af Amer) (>60) BUN/Creatinine Ratio (8-20) Glucose (70-100) mg/dL Lactic Acid (0.5-2.0) mmol/L Calcium (8.6-10.3) mg/dL Total Bilirubin (0.2-1.0) mg/dL AST (13-39) U/L ALT (7-52) U/L Alkaline Phosphatase (34-104) U/L Total Protein (6.4-8.9) g/dL Albumin (3.2-5.2) g/dL Globulin (2-4) g/dL Albumin/Globulin Ratio (1-3) Urine Color Yellow Urine Appearance Cloudy Urine pH 7.0 (5-9) Ur Specific [place] 1.021 (1.010-1.030) Urine Protein Negative (Negative) Urine Ketones Negative (Negative) Urine Blood Negative (Negative) Urine Nitrate Negative (Negative) Urine Bilirubin Negative (Negative) Urine Urobilinogen Negative (Negative) Ur Leukocyte Esterase Negative (Negative) Urine Glucose Negative (Negative) Salicylates (<30) mg/dL Urine Opiates Screen None detected (None Detect) Acetaminophen mcg/mL Ur Barbiturates Screen None detected (None Detect) Ur Phencyclidine Scrn None detected (None Detect) Ur Amphetamines Screen None detected (None Detect) U Benzodiazepines Scrn None detected (None Detect) Urine Cocaine Screen None detected (None Detect) U Cannabinoids Screen None detected (None Detect) Serum Alcohol (<10) mg/dL Assess/Plan/Problems-Billing Assessment: 28 yo M with h/o ETOH abuse presented with N/V and reported seizure at home - Patient Problems (1) Opiate dependence Comment: cont suboxone (2) Alcohol withdrawal Comment: With hx seizures. will d/c chlordiazepoxide start scheduled Ativan in addition to WAM continue thiamine. (3) Tobacco abuse Comment: Pt advised to quit smoking and avoid second hand smoke. nicotine inhaler ordered (4) Epigastric abdominal pain Comment: likely ETOH gastritis cont omeprazole, Carafate, clears to be advanced if tolerating diet in aM (5) DVT prophylaxis Comment: low risk , ambulation Status and Disposition: inpatient
[2018-09-17] MEDS ORDERED: Nicotine Inhaler* 10 MG AMP INH PRN (08:14)
[2018-09-17] MEDS: LORazepam INJ* 2 MG/ML 1 ML VIAL IV PUSH SCH ×5 (08:22→18:10)
[2018-09-17] MEDS: Sucralfate TAB* 1 GM PO SCH ×3 (08:22→16:13)
[2018-09-17] MEDS: Omeprazole CAP* 20 MG PO SCH (08:22)
[2018-09-17] MEDS ORDERED: Thiamine TAB* 100 MG TAB PO SCH (09:00)
[2018-09-17] MEDS ORDERED: Folic Acid TAB* 1 MG PO SCH (09:00)
[2018-09-17] MEDS ORDERED: Buprenorp/Nalox 4-1 MG FILM 1 EACH SL FILM SCH (09:00)
[2018-09-17] MEDS ORDERED: chlordiazePOXIDE CAP* 25 MG PO SCH ×2 (09:00)
[2018-09-17] MEDS ORDERED: Multivitamins/Minerals TAB PO SCH (09:00)
[2018-09-17] MEDS: Ondansetron INJ* 2 MG/ML VIAL IV PRN (10:05)
[2018-09-17] MEDS ORDERED: Magnesium Sulfate 2 GM IV* 2 GM/50 ML BAG IVPB ONE (14:18)
[2018-09-17 18:05] VITALS: BP 141/95
== END 2018-09-17 19:40 | disposition left against medical advice (07) | DRG 770 ==
LOC: ED 09:34 → MEDTELE 13:32
PROVIDERS: ADMIT Internal Medicine; ATTEND Internal Medicine
DX: F10.239 Alcohol dependence with withdrawal, unspecified (principal); F11.20 Opioid dependence, uncomplicated; R79.89 Other specified abnormal findings of blood chemistry; F32.9 Major depressive disorder, single episode, unspecified; F41.9 Anxiety disorder, unspecified; I48.91 Unspecified atrial fibrillation; L40.9 Psoriasis, unspecified; F17.210 Nicotine dependence, cigarettes, uncomplicated; J45.909 Unspecified asthma, uncomplicated; F90.9 Attention-deficit hyperactivity disorder, unspecified type; R40.2362 Coma scale, best motor response, obeys commands, at arrival to emergency department; R40.2142 Coma scale, eyes open, spontaneous, at arrival to emergency department; R40.2252 Coma scale, best verbal response, oriented, at arrival to emergency department; B19.20 Unspecified viral hepatitis C without hepatic coma; I10 Essential (primary) hypertension; Y90.2 Blood alcohol level of 40-59 mg/100 ml; R10.13 Epigastric pain; Z88.8 Allergy status to other drugs, medicaments and biological substances; Z91.030 Bee allergy status; Z56.0 Unemployment, unspecified; Z53.21 Procedure and treatment not carried out due to patient leaving prior to being seen by health care provider; Z91.5 Personal history of self-harm; Z23 Encounter for immunization
CPT/HCPCS: 36415; 70450; 80048; 80053; 80076; 80307; 80320; 80329; 81003; 82150; 83605; 83690; 83735; 85025; 85610; 90732; 93005; 99284; A9270-GY; G0480; J2060; J2405; J3411; J3475

== ENCOUNTER 2018-09-23 18:15 | Emergency (ER) | payer OTHER ==
[2018-09-23] MEDS ORDERED: hydrOXYzine IM* 50 MG/ML VIAL ONE (18:38)
[2018-09-23] MEDS ORDERED: Ziprasidone IM INJ* 20 MG/ML VIAL IM ONE (18:42)
[2018-09-23] MEDS ORDERED: LORazepam INJ* 2 MG/ML 1 ML VIAL ONE ×2 (18:42→18:56)
[2018-09-23] MEDS ORDERED: Ziprasidone IM INJ* 20 MG/ML VIAL ONE (18:42)
[2018-09-23] MEDS ORDERED: Sterile Water for Inj* 10 ML ONE (18:42)
[2018-09-23] MEDS ORDERED: hydrOXYzine IM* 50 MG/ML VIAL IM ONE (18:43)
[2018-09-23] MEDS ORDERED: LORazepam INJ* 2 MG/ML 1 ML VIAL IV ONE (18:43)
[2018-09-23] MEDS ORDERED: Haloperidol INJ IV/IM* 5 MG/ML AMP ONE (18:56)
[2018-09-23] MEDS ORDERED: Nicotine Inhaler* 10 MG AMP INH PRN (19:00)
--- NOTE | 2018-09-23 19:01 | ED ---
Psychiatric Complaint - HPI Summary HPI Summary: A 28 year old male brought in by police presents to the ED c/o SI on 2017. Pt is uncooperative and drunk. The patient is voluntary to the ED for MHE/ detox from alcohol. He is to be admitted to [facility] on 09/24/2018 for alcohol detox but called stating Im carl if I dont get help tomorrow. [facility] thought that meant he intended self-harm and called the police to bring him in to the ED for MHE. Pt had at least a liter of vodka. - History Of Current Complaint Chief Complaint: EDMentalHealth Time Seen by Provider: 09/23/18 18:28 Hx Obtained From: Patient Onset/Duration: Sudden Onset, Still Present Associated Signs And Symptoms: Positive: Hostile Has Suicidal: Reports: Thoughts - Allergies/Home Medications Allergies/Adverse Reactions: Allergies Allergy/AdvReac Type Severity Reaction Status Date / Time bee venom protein (honey bee) Allergy Anaphylatic Verified 09/23/18 18:22 Shock haloperidol [From Haldol] Allergy See Comment Verified 09/23/18 18:22 promethazine Allergy See Comment Verified 09/23/18 18:22 PMH/Surg Hx/FS Hx/Imm Hx Endocrine/Hematology History: Denies: Hx Diabetes Cardiovascular History: Reports: Hx Hypertension Respiratory History: Reports: Hx Asthma GI History: Reports: Hx Ulcer Musculoskeletal History: Reports: Hx Back Problems Denies: Hx Arthritis, Hx Osteoporosis Sensory History: Denies: Hx Contacts or Glasses, Hx Legally Blind, Hx Deafness, Hx Hearing Aid Opthamlomology History: Denies: Hx Contacts or Glasses, Hx Legally Blind Neurological History: Reports: Hx Seizures Psychiatric History: Reports: Hx Anxiety, Hx Attention Deficit Hyperactivity Disorder, Hx Depression, Hx Inpatient Treatment, Hx Community Mental Health Tx, Hx Suicide Attempt, Hx Substance Abuse Denies: Hx Eating Disorder, Hx of Violent Episodes Against Others - Surgical History Surgery Procedure, Year, and Place: 4 skin grafts Infectious Disease History: No Infectious Disease History: Reports: Hx Hepatitis Denies: Hx of Known/Suspected MRSA, Traveled Outside the [place] in Last 30 Days - Family History Known Family History: Negative: Blood Disorder - Social History Alcohol Use: Daily Alcohol Amount: 1L/ day Hx Substance Use: Yes Substance Use Type: Reports: Heroin, Marijuana Substance Use Comment - 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 Smoking Status (MU): Light Every Day Tobacco Smoker Type: Cigarettes Amount Used/How Often: 1/4 pack day Review of Systems Positive: Other - Positive: drunk Positive: Other - Positive: SI All Other Systems Reviewed And Are Negative: Yes Physical Exam - Summary Physical Exam Summary: Appearance: EtOH in breath. Uncooperative. Skin: The skin is warm and dry and skin color reflects adequate perfusion. HEENT: The head is normocephalic and atraumatic. The pupils are equal and reactive. The conjunctivae are clear and without drainage. Nares are patent and without drainage. Mouth reveals moist mucous membranes and the throat is without erythema and exudate. The external ears are intact. The ear canals are patent and without drainage. The tympanic membranes are intact. Neck: The neck is supple with full range of motion and non-tender. There are no carotid bruits. There is no neck vein distension. Respiratory: Chest is non-tender. Lungs are clear to auscultation and breath sounds are symmetrical and equal. Cardiovascular: Heart is regular rate and rhythm. There is no murmur or rub auscultated. There is no peripheral edema and pulses are symmetrical and equal. Abdomen: The abdomen is soft and non-tender. There are normal bowel sounds heard in all four quadrants and there is no organomegaly palpated. Musculoskeletal: There is no back tenderness noted. Extremities are non-tender with full range of motion. There is good capillary refill. There is no peripheral edema or calf tenderness elicited. Neurological: Patient is alert and oriented to person, place and time. The patient has symmetrical motor strength in all four extremities. Slurred speech. Psychiatric: The patient has an appropriate affect and does not exhibit any anxiety or depression. Triage Information Reviewed: Yes Vital Signs On Initial Exam: Initial Vitals Temp Pulse Resp BP Pulse Ox 98.3 F 109 20 147/99 95 09/23/18 18:19 09/23/18 18:19 09/23/18 18:19 09/23/18 18:19 09/23/18 18:19 Vital Signs Reviewed: Yes Diagnostics - Vital Signs Vital Signs Temp Pulse Resp BP Pulse Ox 09/23/18 18:19 98.3 F 109 20 147/99 95 - Laboratory Result Diagrams: 09/23/18 19:38 09/23/18 19:38 Lab Statement: Any lab studies that have been ordered have been reviewed, and results considered in the medical decision making process. Course/Dx - Course Course Of Treatment: Mr. Doe was not cooperative on his arrival to the emergency department. The first discharged to ran out of the department. He required no physical and chemical restraint for his as well as the staff's protection. He was found to have a blood alcohol level of 341 at 1938 and he should be sober in the morning. - Differential Dx/Clinical Impression Provider Diagnosis: Alcohol intoxication Discharge - Sign-Out/Discharge Documenting (check all that apply): Sign-Out Patient Signing out patient TO: Nickolas Roldan - Discharge Plan Condition: Stable Referrals: Braden Landry MD [Primary Care Provider] - - Billing Disposition and Condition Condition: STABLE - Attestation Statements Document Initiated by Candaceibsaw: Yes Documenting Scribe: Elías Ingram Provider For Whom Scribe is Documenting (Include Credential): Olvin Bernard MD Scribe Attestation: Elías Hooks scribed for Olvin Bernard MD on 09/23/18 at 2100. Scribe Documentation Reviewed: Yes Provider Attestation: The documentation as recorded by the Elías lucas accurately reflects the service I personally performed and the decisions made by me, Olvin Bernard MD
[2018-09-23 19:59] LABS: ABS Basophils 0 10^3/ul (0-0.2); ABS Eosinophils 0.1 10^3/ul (0-0.6); ABS Lymphocytes 1.5 10^3/ul (1.0-4.8); ABS Monocytes 0.4 10^3/ul (0-0.8); ABS Neutrophils 2.4 10^3/ul (1.5-7.7); ABS Nucleated RBC 0 10^3/ul; Eosinophil % 1.6 % (0-6); Hematocrit 45 % (42-52); Hemoglobin 15.5 g/dl (14.0-18.0); Lymphocyte % 33.6 % (25-47); Mean Corpuscular HGB Conc 34 g/dl (31-36); Mean Corpuscular Hemoglobin 32 pg (27-31); Mean Corpuscular Volume 93 fL (80-94); Mean Platelet Volume 7.8 fL (7.4-10.4); Nucleated Red Blood Cells % 0.1; Platelet Count 146 10^3/ul (150-450); Red Blood Count 4.86 10^6/ul (4.00-5.40); Red Cell Distribution Width 13 % (10.5-15); White Blood Count 4.4 10^3/ul (3.5-10.8)
[2018-09-23 20:08] LABS: EGFR Non-African American 113.5 (>60)
[2018-09-23] MEDS ORDERED: Mouth Piece, Nicotine* 1 EACH CARTRIDGE INH ONE (21:00)
[2018-09-23 22:28] LABS: Urine Appearance Clear; Urine Blood Negative (Negative); Urine Color Straw; Urine Ketones Negative (Negative); Urine Protein Negative (Negative); Urine Specific Gravity 1.006 (1.010-1.030); Urine Urobilinogen Negative (Negative)
--- NOTE | 2018-09-23 22:37 | ED ---
Progress - Progress Note Progress Note: This patient was signed out from Dr. Bernard on shift change awaiting sobriety and a possible MHE. The patient will be signed out to Dr Serrato on shift change. Course/Dx - Course Course Of Treatment: This patient was signed out from Dr. Bernard on shift change awaiting sobriety and a possible MHE. The patient will be signed out to Dr Serrato on shift change. - Diagnoses Provider Diagnoses: Alcohol intoxication Discharge - Sign-Out/Discharge Documenting (check all that apply): Sign-Out Patient, Receiving Sign-Out Signing out patient TO: Demetrius Serrato Receiving patient FROM: Olvin Bernard - Discharge Plan Condition: Stable Referrals: Braden Landry MD [Primary Care Provider] - - Attestation Statements Document Initiated by Scribe: Yes Documenting Scribe: Bong Lobato Provider For Whom Scribe is Documenting (Include Credential): Nickolas Roldan MD Scribe Attestation: Bong Hooks, scribed for Nickolas Roldan MD on 09/24/18 at 0629.
--- NOTE | 2018-09-24 07:14 | ED ---
Progress - Progress Note Progress Note: This patient was signed out from Dr. Roldan at shift change, pending disposition , awaiting sobriety and mental health evaluation. Pt had a mental health evaluation and her case was reviewed by Dr. Lindsey, psychiatrist. Dr. Lindsey reports the pt will be sent back to [facility] for an intake for rehab. At this time pt is waiting on bed availability. At 11:38- Mental health managing partner, Henry, reports pt would like to be discharged home and does not want to wait for bed availability. Per Dr. Lindsey pt can be discharged home with outpatient follow up. Course/Dx - Diagnoses Provider Diagnoses: Alcohol use disorder Discharge - Sign-Out/Discharge Documenting (check all that apply): Patient Departure - Discharge home, Receiving Sign-Out Receiving patient FROM: Nickolas Roldan - Discharge Plan Condition: Stable Disposition: HOME Referrals: Braden Landry MD [Primary Care Provider] - - Attestation Statements Document Initiated by Scribe: Yes Documenting Scribe: Mindi Basurto Provider For Whom Scribe is Documenting (Include Credential): Demetrius Serrato MD Scribe Attestation: Mindi Hooks, scribed for Demetrius Serrato MD on 09/24/18 at 1227.
--- NOTE | 2018-09-24 08:24 | PN ---
ED Flex Patient Progress Note Date of Service: 09/23/18 Subjective: This is a 28 year-old M who is pending admission to [facility] / transfer to another psychiatric facility / discharge to home / or being observed secondary to ETOH abuse. Pt. examined in room ED 12 at 0815. He is currently being evaluated by MH. Objective: Vitals: Most recent vital signs documented below. General NAD Laboratory: Current laboratory results documented below. Assessment: Pending MHE Plan: Pending psychiatric or medical consultation to observe / transfer / admit / discharge will follow up daily . Vital Signs Temp Pulse Resp BP Pulse Ox 98.3 F 66 20 104/64 96 09/23/18 18:19 09/24/18 06:00 09/23/18 20:19 09/24/18 06:00 09/24/18 06:00 Lab Results - Entire Visit 09/23/18 09/23/18 09/23/18 22:13 22:13 19:38 WBC RBC Hgb Hct MCV MCH MCHC RDW Plt Count MPV Neut % (Auto) Lymph % (Auto) Craig % (Auto) Eos % (Auto) Baso % (Auto) Absolute Neuts (auto) Absolute Lymphs (auto) Absolute Monos (auto) Absolute Eos (auto) Absolute Basos (auto) Absolute Nucleated RBC Nucleated RBC % Sodium 143 Potassium 3.9 Chloride 107 Carbon Dioxide 26 Anion Gap 10 BUN 9 Creatinine 0.81 Est GFR ( Amer) 137.3 Est GFR (Non-Af Amer) 113.5 BUN/Creatinine Ratio 11.1 Glucose 95 Calcium 9.8 Total Bilirubin 0.30 AST 71 H ALT 84 H Alkaline Phosphatase 89 Total Protein 8.4 Albumin 4.5 Globulin 3.9 Albumin/Globulin Ratio 1.2 TSH 1.34 Urine Color Straw Urine Appearance Clear Urine pH 6.0 Ur Specific Virden 1.006 L Urine Protein Negative Urine Ketones Negative Urine Blood Negative Urine Nitrate Negative Urine Bilirubin Negative Urine Urobilinogen Negative Ur Leukocyte Esterase Negative Urine Glucose Negative Salicylates < 2.50 Urine Opiates Screen None detected Acetaminophen < 15 Ur Barbiturates Screen None detected Ur Phencyclidine Scrn None detected Ur Amphetamines Screen None detected U Benzodiazepines Scrn Presumptive positive A Urine Cocaine Screen None detected U Cannabinoids Screen None detected Serum Alcohol 341 H 09/23/18 19:38 WBC 4.4 RBC 4.86 Hgb 15.5 Hct 45 MCV 93 MCH 32 H MCHC 34 RDW 13 Plt Count 146 L MPV 7.8 Neut % (Auto) 54.0 Lymph % (Auto) 33.6 Craig % (Auto) 10.2 H Eos % (Auto) 1.6 Baso % (Auto) 0.6 Absolute Neuts (auto) 2.4 Absolute Lymphs (auto) 1.5 Absolute Monos (auto) 0.4 Absolute Eos (auto) 0.1 Absolute Basos (auto) 0 Absolute Nucleated RBC 0 Nucleated RBC % 0.1 Sodium Potassium Chloride Carbon Dioxide Anion Gap BUN Creatinine Est GFR ( Amer) Est GFR (Non-Af Amer) BUN/Creatinine Ratio Glucose Calcium Total Bilirubin AST ALT Alkaline Phosphatase Total Protein Albumin Globulin Albumin/Globulin Ratio TSH Urine Color Urine Appearance Urine pH Ur Specific Virden Urine Protein Urine Ketones Urine Blood Urine Nitrate Urine Bilirubin Urine Urobilinogen Ur Leukocyte Esterase Urine Glucose Salicylates Urine Opiates Screen Acetaminophen Ur Barbiturates Screen Ur Phencyclidine Scrn Ur Amphetamines Screen U Benzodiazepines Scrn Urine Cocaine Screen U Cannabinoids Screen Serum Alcohol
[2018-09-24] MEDS ORDERED: Ketorolac INJ* 30 MG/ML 1 ML VIAL IM ONE (08:54)
[2018-09-24 12:06] VITALS: BP 115/51
== END 2018-09-24 12:05 | disposition home or self-care (01) ==
LOC: ED 18:15
DX: F10.129 Alcohol abuse with intoxication, unspecified (principal); Y90.8 Blood alcohol level of 240 mg/100 ml or more; F90.9 Attention-deficit hyperactivity disorder, unspecified type; F32.9 Major depressive disorder, single episode, unspecified; K75.9 Inflammatory liver disease, unspecified; I10 Essential (primary) hypertension; J45.909 Unspecified asthma, uncomplicated
CPT/HCPCS: 36415; 80053; 80307; 80320; 80329; 81003; 84443; 85025; 96372; 96374; 99285; G0480; J1630; J2060; J3410; J3486

== ENCOUNTER 2018-10-24 19:06 | Inpatient (IN) | payer OTHER ==
--- OUTSIDE RECORDS SUMMARY | 2018-10-24 19:42 | XMS REPORT ---
:1990 External Reference #:[id number] Author Organization [facility] Address [address], [address] [place] [address] Phone [phone] Care Team Providers Name Role Phone Rober Luther MD Primary Care Physician Unavailable Payers Type Date Identification Numbers Payment Provider Subscriber Commercial Policy Number: [id number] [employer] Marbin Doe PayID: [id number] [address] [place] [address] Commercial Expires: 2018 Policy Number: [id number] Delarosa Marbin Doe PayID: [id number] [address] [address] [place] [address] Problems Description No Information Social History Description No Information Available Allergies, Adverse Reactions, Alerts Description No Information Medications Description No Information Results Description No Information Procedures Date CPT Code Description Status 10/06/2018 84791 EKG Interpretation And Report Only Completed 10/05/2018 03985 EKG Interpretation And Report Only Completed Encounters Type Date Location Provider CPT E/M Dx Office Visit 07/26/2013 10:41a [facility] [place], [address] [phone] [facility] Jasmin E854.2 Plan of Care No Information Available
[2018-10-24] MEDS ORDERED: Haloperidol INJ IV/IM* 5 MG/ML AMP IM ONE (20:00)
[2018-10-24] MEDS ORDERED: hydrOXYzine IM* 50 MG/ML VIAL IM ONE (20:00)
[2018-10-24] MEDS ORDERED: Thiamine IV* 100 MG, Folic Acid IV* 1 MG, Multiple Vitamin IV ADULT* 10 ML in NS 0.9% 1... IV ONE (20:02)
[2018-10-24] MEDS ORDERED: NS 0.9% 1000 ML* 1,000 ML IV ONE (20:02)
[2018-10-24] MEDS ORDERED: LORazepam INJ* 2 MG/ML 1 ML VIAL IV PUSH ONE (20:03)
--- NOTE | 2018-10-24 20:06 | ED ---
Substance Abuse/Use - HPI Summary HPI Summary: This pt is a 28 y/o male, with hx of alcohol withdrawal seizures, [facility] [place] [facility] [place]. Pt states he drinks approximately 1 L of vodka every day. Mother reports the pt had 2 seizures within a couple of hours of each other today. Mother states pt gets seizures when pt doesn't "get enough alcohol." Pt notes his last alcoholic drink was about 5 years ago, but mother does not know as she wasn't with him at the time. Pt reports his "heart hurts" with chest pain and palpitations. He also admits to SI thoughts and states he wants to harm himself. Denies fever, chills, SOB, abd pain. He has been admitted to the hospital for detox as well as to detox centers in the past. He does not take Suboxone on a regular basis, only when he can buy them as he doesn't have a prescription. Pt takes Seroquel and vitamins. Pt lives at his mother's house but mother lives at her boyfriend's. - History Of Current Complaint Chief Complaint: EDSubstanceAbuse Stated Complaint: SEIZURE Time Seen by Provider: 10/24/18 19:51 Hx Obtained From: Patient, Family/Cargo Service Supervisor - Mother Onset/Duration of Drug/ETOH Abuse: Years Ingestion History: Type/Name Of Drug - alcohol, Amount Ingested - unknown Overdose Characteristics: Oral Timing Of Abuse: Daily, Binge Use Severity Currently: Moderate Character: Depressed Aggravating Factor(s): Nothing Alleviating Factor(s): Nothing Associated Signs And Symptoms: Chest Pain, Tremulous, Palpitations, Intentional Ingestion Related Hx: Drug/Alcohol Last Used @ - unknown per mother, pt reports 5 hours ago, Prior Drug Abuse Counseling/Admission, Suicidal: Thoughts - Allergies/Home Medications Allergies/Adverse Reactions: Allergies Allergy/AdvReac Type Severity Reaction Status Date / Time bee venom protein (honey bee) Allergy Anaphylatic Verified 09/23/18 18:22 Shock haloperidol [From Haldol] Allergy See Comment Verified 09/23/18 18:22 promethazine Allergy See Comment Verified 09/23/18 18:22 PMH/Surg Hx/FS Hx/Imm Hx Endocrine/Hematology History: Denies: Hx Diabetes Cardiovascular History: Reports: Hx Hypertension Respiratory History: Reports: Hx Asthma GI History: Reports: Hx Ulcer Musculoskeletal History: Reports: Hx Back Problems Denies: Hx Arthritis, Hx Osteoporosis Sensory History: Denies: Hx Contacts or Glasses, Hx Legally Blind, Hx Deafness, Hx Hearing Aid Opthamlomology History: Denies: Hx Contacts or Glasses, Hx Legally Blind Neurological History: Reports: Hx Seizures - alcohol withdrawal seizures Psychiatric History: Reports: Hx Anxiety, Hx Attention Deficit Hyperactivity Disorder, Hx Depression, Hx Inpatient Treatment, Hx Community Mental Health Tx, Hx Suicide Attempt, Hx Substance Abuse Denies: Hx Eating Disorder, Hx of Violent Episodes Against Others - Surgical History Surgery Procedure, Year, and Place: 4 skin grafts Infectious Disease History: No Infectious Disease History: Reports: Hx Hepatitis Denies: Hx of Known/Suspected MRSA, Traveled Outside the [place] in Last 30 Days - Family History Family History: Mother with depression - Social History Alcohol Use: Daily Alcohol Amount: 1L/ day Hx Substance Use: Yes Substance Use Type: Reports: Heroin, Marijuana Substance Use Comment - 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 Smoking Status (MU): Light Every Day Tobacco Smoker Type: Cigarettes Amount Used/How Often: 1/4 pack day Review of Systems Negative: Fever, Chills Positive: Palpitations, Chest Pain Negative: Shortness Of Breath Negative: Abdominal Pain Positive: no symptoms reported, see HPI Neurological: Other - POSITIVE: seizures All Other Systems Reviewed And Are Negative: Yes Physical Exam - Summary Physical Exam Summary: VITAL SIGNS: Reviewed. GENERAL: Patient is a well-developed and nourished male. Patient is not in any acute respiratory distress. HEAD AND FACE: No signs of trauma. No ecchymosis, hematomas or skull depressions. No sinus tenderness. EYES: PERRLA, EOMI x 2, No injected conjunctiva, no nystagmus. EARS: Hearing grossly intact. Ear canals and tympanic membranes are within normal limits. MOUTH: Oropharynx within normal limits. NECK: Supple, trachea is midline, no adenopathy, no JVD, no carotid bruit, no c- spine tenderness, neck with full ROM. CHEST: Symmetric, no tenderness at palpation LUNGS: Clear to auscultation bilaterally. No wheezing or crackles. CVS: Tachycardic rate and regular rhythm, S1 and S2 present, no murmurs or gallops appreciated. ABDOMEN: Soft, non-tender. No signs of distention. No rebound no guarding, and no masses palpated. Bowel sounds are normal. EXTREMITIES: FROM in all major joints, no edema, no cyanosis or clubbing. NEURO: Alert and oriented x 3. Speech is normal and follows commands.Pt has tremors with outstretching his arms. SKIN: Dry and warm PSYCH: pt admits to wanting to hurt himself. Triage Information Reviewed: Yes Vital Signs On Initial Exam: Initial Vitals Temp Pulse Resp BP Pulse Ox 98.9 F 138 20 165/82 94 10/24/18 19:10 10/24/18 19:10 10/24/18 19:10 10/24/18 19:10 10/24/18 19:10 Vital Signs Reviewed: Yes Procedures - Procedure Summary Procedure Summary: Procedure Note Using ultrasound guidance, a 20 gauge angiocath was used on the right basilic vein. There was good blood return and there was easy flush as well. Diagnostics - Vital Signs Vital Signs Temp Pulse Resp BP Pulse Ox 10/24/18 19:10 98.9 F 138 20 165/82 94 - Laboratory Result Diagrams: 10/24/18 22:21 10/24/18 23:04 Lab Statement: Any lab studies that have been ordered have been reviewed, and results considered in the medical decision making process. - EKG 19:22 Cardiac Rate: Tachycardia - at 122 bpm EKG Rhythm: Sinus Tachycardia Summary of EKG Findings: J-point elevation. Re-Evaluation - Re-Evaluation First Eval Re-Evaluation Time: 20:33 Comment: Pt is attempting to leave. Haldol, ativan and hydroxyzine IM administered. Second Eval Re-Evaluation Time: 22:10 Comment: Procedure for IV placement performed. See procedure note. Course/Dx - Course Assessment/Plan: Pt is a 28 y/o male, with hx of alcohol withdrawal seizures, who presents to the ED for seizures x2 today. Mother reports the pt had 2 seizures within a couple of hours of each other today. Mother states pt gets seizures when pt doesn't "get enough alcohol." Pt notes his last alcoholic drink was about 5 years ago, but mother does not know as she wasn't with him at the time. Pt reports his "heart hurts" with chest pain and palpitations. He also admits to SI thoughts and states he wants to harm himself. Labs show ALT of 61, total creatine kinase is 980. Toxicology shows positive benzodiazepines and serum alcohol of 338. In the ED course the pt was given IV fluids, banana bag, Ativan. Pt attempted to leave and Haldol, ativan and hydroxyzine IM were administered. Using ultrasound guidance, a 20 gauge angiocath was used on the right basilic vein. There was good blood return and there was easy flush as well. I discussed the case with KIM Sullivan for the hospitalist service, who accepted the pt for admission. - Diagnoses Provider Diagnoses: Alcohol withdrawal - Physician Notifications Discussed Care Of Patient With: Bill ALVAREZ from hospitalist services Time Discussed With Above Provider: 23:28 Instructed by Provider To: Admit As Inpatient Discharge - Sign-Out/Discharge Documenting (check all that apply): Patient Departure - Admit to [facility] [place] - Discharge Plan Condition: Stable Disposition: ADMITTED TO [facility] Referrals: No Primary Care Phys,NOPCP [Primary Care Provider] - - Attestation Statements Document Initiated by Scribe: Yes Documenting Scribe: Mindi Basurto Provider For Whom Scribe is Documenting (Include Credential): Nickolas Roldan MD Scribe Attestation: IMindi, scribed for Nickolas Roldan MD on 10/24/18 at 0468. Status of Scribe Document: Ready
[2018-10-24] MEDS ORDERED: Haloperidol INJ IV/IM* 5 MG/ML AMP ONE (20:32)
[2018-10-24] MEDS ORDERED: hydrOXYzine IM* 50 MG/ML VIAL ONE (20:32)
[2018-10-24] MEDS ORDERED: Diazepam SYRINGE* 5 MG/ML 2 ML SYRINGE (10 MG total) IV ONE (22:16)
[2018-10-24 22:21] LABS: Urine Appearance Clear; Urine Blood 2+ (Negative); Urine Color Yellow; Urine Ketones Negative (Negative); Urine Protein 1+(30 mg/dL) (Negative); Urine Red Blood Cell Trace(0-2/hpf) (Absent); Urine Urobilinogen Negative (Negative); Urine White Blood Cell Absent (Absent)
[2018-10-24 22:38] LABS: ABS Basophils 0 10^3/ul (0-0.2); ABS Eosinophils 0.1 10^3/ul (0-0.6); ABS Lymphocytes 1.4 10^3/ul (1.0-4.8); ABS Monocytes 0.5 10^3/ul (0-0.8); ABS Neutrophils 3.4 10^3/ul (1.5-7.7); ABS Nucleated RBC 0 10^3/ul; Hematocrit 49 % (42-52); Hemoglobin 17.1 g/dl (14.0-18.0); Lymphocyte % 26.3 %; Mean Corpuscular HGB Conc 35 g/dl (31-36); Mean Corpuscular Hemoglobin 32 pg (27-31); Mean Corpuscular Volume 91 fL (80-94); Mean Platelet Volume 8.5 fL (7.4-10.4); Nucleated Red Blood Cells % 0.1; Platelet Count 233 10^3/ul (150-450); Red Blood Count 5.38 10^6/ul (4.00-5.40); Red Cell Distribution Width 14 % (10.5-15); White Blood Count 5.4 10^3/ul (3.5-10.8)
[2018-10-24 22:50] LABS: EGFR Non-African American 96.7 (>60)
[2018-10-24] MEDS ORDERED: Diazepam INJ (NF) 5 MG/ML 10 ML VIAL (50 MG TOTAL) IV ONE (23:00)
[2018-10-24] MEDS ORDERED: Acetaminophen TAB* 325 MG PO PRN (23:49)
[2018-10-24] MEDS ORDERED: Albuterol 2.5 MG/3 ML NEB.SOL* (0.083%) INH PRN (23:53)
[2018-10-25] MEDS: LORazepam INJ* 2 MG/ML 1 ML VIAL IV SCH ×3 (01:04→16:12)
[2018-10-25] MEDS: NS 0.9% 1000 ML* 1,000 ML IV SCH ×2 (01:49→08:18)
[2018-10-25 03:14] LABS: EGFR Non-African American 104.5 (>60)
[2018-10-25] MEDS: LORazepam INJ* 2 MG/ML 1 ML VIAL IV PUSH SCH ×6 (08:12→17:35)
[2018-10-25] MEDS: Thiamine TAB* 100 MG TAB PO SCH (08:16)
[2018-10-25] MEDS: Folic Acid TAB* 1 MG PO SCH (08:16)
[2018-10-25] MEDS: Multivitamins/Minerals TAB PO SCH (08:16)
[2018-10-25] MEDS ORDERED: Potassium Chlor TAB* 20 MEQ TAB.ER PO STA (09:37)
--- NOTE | 2018-10-25 09:59 | HP ---
HISTORY AND PHYSICAL: DATE OF ADMISSION: 10/24/18 PRIMARY CARE PROVIDER: None. ATTENDING PHYSICIAN WHILE IN THE HOSPITAL: Dr. Rosetta Khanna * (report being dictated by Wesley Lucia NP). CHIEF COMPLAINT: 1. Ethanol abuse. 2. Tremors. 3. Suicidal ideation. HISTORY OF PRESENT ILLNESS: Mr. Doe is a 28-year-old male patient who has a history of EtOH abuse, seizures in the past from EtOH withdrawal, tobacco abuse , polysubstance abuse, heroin abuse, hepatitis C, depression, asthma, AFib, and psoriasis who was here about a month ago with EtOH complaints, in withdrawal. He says that he is coming in today because he is seeking help. He was brought in because his mother was concerned that he was drinking again, a liter of vodka a day, drinking very heavily. He is interested in quitting, but also there was concern for suicidal ideation. He says he is aching all over. He denies any abdominal pain. He says he is not nauseous. He has not been vomiting. He says that he has not had any seizures, but he does state that he feels like he is withdrawing. He feels anxious. He says his last drink was last night, although his alcohol level today is over 300. He presented to the ER. There was concern because he was tachycardic and he was tremulous. There was concern that he may be actively starting to withdraw as he has done in the past and we were asked to evaluate for admission. PAST MEDICAL HISTORY: Significant for: 1. EtOH abuse. 2. History of seizures from withdrawal. 3. Tobacco use. 4. Polysubstance abuse. 5. Heroin abuse. 6. Hepatitis C. 7. Depression. 8. Asthma. 9. AFib. 10. Psoriasis. PAST SURGICAL HISTORY: He has had 4 skin grafts to the lower extremity due to accident. FAMILY HISTORY: His mother is healthy. He does not know his father. SOCIAL HISTORY: He is a pack-a-day smoker. He denied any other recreational drug abuse today. He is stating that he is drinking about a liter of Vodka a day. His surrogate decision maker is not appointed at this point. REVIEW OF SYSTEMS: There is no documented fever. He denied having any significant weight change. There is no double vision. He denies having any ear discharge. There was no rhinorrhea. There is no sore throat, no thyroid enlargement. He denied having any chest pain. There was no orthopnea. There was no nocturnal dyspnea. There was no abdominal pain. There was no dysuria, no frequency. There was no seizure, no loss of consciousness, no pruritus, and no skin ulcerations. Review of 14 systems completed, all others negative. PHYSICAL EXAMINATION GENERAL: At this time, Mr. Carvajal is a 28-year-old male patient. He is sitting in the ED stretcher. He does not appear to be in any acute distress. He is drowsy, but he is awake and he follows commands. He appears to be well nourished. VITAL SIGNS: Reveals blood pressure was 115/65, pulse 120, respirations were 20 , his O2 saturation 93% on room air, and temperature was 98.9. HEENT: Head atraumatic and normocephalic. Eyes: Pupils are reactive to light. Sclerae anicteric and not pale. NECK: Supple. Throat: Oral mucosa appears to be dry. No oropharyngeal erythema. LUNGS: Clear to auscultation. No wheezes, rales, or rhonchi. HEART: Sounds S1 and S2. He is tachycardic. There is no murmurs, rubs, or gallops. ABDOMEN: Soft, flat, and nontender. Bowel sounds were present. EXTREMITIES: Pulses were 2+ throughout. No peripheral edema. He is moving all 4 extremities with 5/5 strength. NEUROLOGIC: He is awake. He is drowsy, but he will awaken to his name. He will follow simple commands. His speech was clear. His tongue is midline. He had no facial drooping. No gross focal deficits were noted. SKIN: Intact. DIAGNOSTIC STUDIES/LABORATORY DATA: His labs today revealing a WBC of 5.4, RBC of 5.38, hemoglobin of 17.1, hematocrit of 48, platelet count of 233. His sodium was 135, potassium is pending, chloride 103, bicarb 21, BUN 12, creatinine 0.93, glucose 103, calcium 9.0, mag 2.4. Total bili 0.4, AST 61, his CK was 980, total protein was 9, albumin 4.9. TSH normal. Toxicology was negative except for benzodiazepine and his alcohol was 338. Urine showed 1+ protein and 2+ blood. He did have an EKG obtained today as well, which showed sinus tachycardia, rate of 102 with LVH. When you review it to his previous EKGs, it appears to be similar. Old medical records reviewed. ASSESSMENT AND PLAN: Mr. Doe is a 28-year-old male patient coming into the ED today with complaints of ethanol abuse. He has a history of such and also stated he was noted to be suicidal. He will be admitted under inpatient status for: 1. Ethanol abuse. Again, I will put him on the [facility] protocol. Banana bag has been given by the ED. We will put him on folic and thiamine. We will order Social Work consult and I have asked him to abstain from alcohol and I have gone over the risk of alcoholism particularly at his extent. We will certainly continue with supportive care and we will continue to follow and I will order seizure precautions. 2. Suicidal ideation. To be on one-to-one sitter. Psych consult has been placed. When he is medically cleared, I will have a psychiatric evaluation. 3. History of seizures, again I have ordered standing Ativan and seizure precautions. 4. Tobacco abuse. I have offered smoking cessation and counseling. 5. Hepatitis C. We will need to get him established with a primary so that he can follow this up. Again, he was stating that he was going to follow up with somebody for this, but I do not know if he has as of yet. 6. Depression. Continue with supportive care. 7. Asthma. I have ordered p.r.n. albuterol. 8. Atrial fibrillation. He appears to be sinus tachycardic right now. We will just monitor. 9. Mild rhabdomyolysis. This could be secondary to the tremors he is having. I will hydrate him aggressively and repeat his CK later and we will follow. 10. DVT prophylaxis: I have placed him on SCDs. 11. Code status: Full code. 12. Fluids, electrolytes, and nutrition: He can have a regular diet. TIME SPENT ON THE ADMISSION: 60 minutes. Greater than half the time was spent [id number] with the patient obtaining my history and physical. The other half of time was spent going over the plan of care with the patient, implementing the plan of care. I did discuss the plan of care with my attending , Dr. Khanna; she is in agreement. WESLEY LUCIA NP [id number]/[facility] #: [id number] ERNESTO
[2018-10-25] MEDS ORDERED: Calcium Gluconate INJ* 3 GM in NS 0.9% 250 ML* 250 ML IVPB ONE (10:00)
[2018-10-25] MEDS: Ondansetron INJ* 2 MG/ML VIAL IV PRN (16:13)
[2018-10-25] MEDS ORDERED: Nicotine Inhaler* 10 MG AMP INH PRN (18:40)
[2018-10-25] MEDS ORDERED: Mouth Piece, Nicotine* 1 EACH CARTRIDGE INH PRN (18:46)
--- NOTE | 2018-10-25 18:50 | PN ---
Subjective Date of Service: 10/25/18 Interval History: Pt seen and examined. Meds and labs reviewed. CC: N/A ROS: Denied DE LUNA/dizziness, F/C, N/V, CP, SOB, increased cough, sputum production , abd pain, diarrhea, constipation, dysuria, myalgias, arthralgias, throat pain , and new skin lesions. The rest of the 14 point ROS are unremarkable. PHYSICAL EXAM: GEN APPEARANCE: Awake, not in acute distress HEENT: NC/AT, PERRLA, moist oral mucosa, (-) throat erythema NECK: Soft, supple, (-) cervical LAD, (-)JVD HEART: S1S2 WNL, RRR, No MRG CHEST: CTA, BL, GAE, No W/R/R ABD: Soft, ND/NT, NABS 4x Q EXT: No C/C/E SKIN: Warm to touch PSYCH: No active psychosis, hallucinations, depression, SI/HIpt specifically asked whether he has SI/HI and denied this on my visit Objective Active Medications: Acetaminophen (Tylenol Tab*) 650 mg PO Q4H PRN PRN Reason: FEVER/PAIN Last Admin: 10/25/18 08:15 Dose: 650 mg Albuterol (Ventolin 2.5 Mg/3 Ml Neb.Shanna*) 2.5 mg INH Q2H PRN PRN Reason: SOB/WHEEZING Enoxaparin Sodium (Lovenox(*)) 40 mg SUBCUT Q24H MELANIE Folic Acid (Folvite Tab*) 1 mg PO DAILY [facility] Last Admin: 10/25/18 08:16 Dose: 1 mg Sodium Chloride (Ns 0.9% 1000 Ml*) 1,000 mls @ 150 mls/hr IV PER RATE MELANIE Stop: 10/26/18 06:24 Last Admin: 10/25/18 08:18 Dose: 150 mls/hr Lorazepam (Ativan Inj*) 0 - 3 mg IV PUSH .PER [facility] PROTOCOL MELANIE; Protocol Last Admin: 10/25/18 17:35 Dose: 2 mg Lorazepam (Ativan Inj*) 1 mg IV Q12H MELANIE; Taper Stop: 10/27/18 19:44 Last Admin: 10/25/18 16:12 Dose: 1 mg Multivitamins/Minerals (Theragran/Minerals Tab*) 1 tab PO DAILY [facility] Last Admin: 10/25/18 08:16 Dose: 1 tab Nicotine (Nicotine Inhaler*) 10 mg INH Q2H PRN PRN Reason: CRAVING Ondansetron HCl (Zofran Inj*) 4 mg IV Q6H PRN PRN Reason: NAUSEA/VOMITING Last Admin: 10/25/18 16:13 Dose: 4 mg Thiamine HCl (Vitamin B-1 Tab*) 100 mg PO DAILY MELANIE Last Admin: 10/25/18 08:16 Dose: 100 mg Vital Signs - 8 hr 10/25/18 10/25/18 10/25/18 11:30 11:35 11:38 Temperature 99.9 F Pulse Rate 104 Respiratory 24 24 Rate Blood Pressure 141/88 (mmHg) O2 Sat by Pulse 98 Oximetry 10/25/18 10/25/18 10/25/18 11:45 13:12 13:14 Temperature 99.8 F Pulse Rate 108 Respiratory 24 22 24 Rate Blood Pressure 143/83 (mmHg) O2 Sat by Pulse 99 Oximetry 10/25/18 10/25/18 10/25/18 13:27 14:58 14:59 Temperature 99.3 F Pulse Rate 94 Respiratory 24 24 22 Rate Blood Pressure 148/77 (mmHg) O2 Sat by Pulse 99 Oximetry 10/25/18 10/25/18 10/25/18 16:12 16:13 17:00 Temperature 98.7 F Pulse Rate 112 Respiratory 18 18 16 Rate Blood Pressure 145/80 (mmHg) O2 Sat by Pulse 99 Oximetry 10/25/18 10/25/18 10/25/18 17:32 17:35 18:41 Temperature Pulse Rate Respiratory 22 20 20 Rate Blood Pressure (mmHg) O2 Sat by Pulse Oximetry Oxygen Devices in Use Now: None Result Diagrams: 10/24/18 22:21 10/25/18 02:46 Assess/Plan/Problems-Billing Assessment: - Patient Problems (1) Alcohol withdrawal Current Visit: No Status: Acute Code(s): F10.239 - ALCOHOL DEPENDENCE WITH WITHDRAWAL, UNSPECIFIED SNOMED Code(s): 483186773 Comment: -Advised lifestyle modifications -Continue [facility] protocol (2) Suicidal ideation Current Visit: No Status: Acute Priority: High Onset Date: 09/21/14 Code (s): R45.851 - SUICIDAL IDEATIONS SNOMED Code(s): 8413586 Comment: -Spoke w/Dr. Lindsey -Will await his input, although pt denies SI/HI on my visitDr. César aware -Continue 1:1 until re-evaluated by Psych (3) Tobacco abuse Current Visit: No Status: Acute Code(s): Z72.0 - TOBACCO USE SNOMED Code(s ): 887898857 Comment: -Advised lifestyle modifications -Has not had any cravings at this time yet but given significant smoking hx, will order for PRN Nicotine inhaler (4) HCV (hepatitis C virus) Current Visit: Yes Status: Acute Comment: -Defer w/PCP to F/U once set-up (5) Depression Current Visit: Yes Status: Acute Code(s): F32.9 - MAJOR DEPRESSIVE DISORDER , SINGLE EPISODE, UNSPECIFIED SNOMED Code(s): 54052420 Comment: -As above -Will await psychiatry official input (6) Elevated CPK Current Visit: Yes Status: Acute Code(s): R74.8 - ABNORMAL LEVELS OF OTHER SERUM ENZYMES SNOMED Code(s): 388024793 Comment: -Lower than 5x the ULN--not quite rhabdo but getting there -Will continue IVFs and continue to monitor -Likely due to tremors due to ETOH WD (7) DVT prophylaxis Current Visit: No Status: Acute Code(s): IRL9593 - SNOMED Code(s): 822872202 Comment: -Given pt is actively WD, despite his young age, he is at high risk -Will place on Lovenox SQ -Continue SCDs Status and Disposition: -As above
[2018-10-25] MEDS ORDERED: Enoxaparin(*) 40 MG/0.4 ML SYR SUBCUT SCH (20:00)
[2018-10-26] MEDS: LORazepam INJ* 2 MG/ML 1 ML VIAL IV PUSH SCH ×5 (00:56→10:38)
[2018-10-26] MEDS: LORazepam INJ* 2 MG/ML 1 ML VIAL IV SCH (04:44)
[2018-10-26 05:40] LABS: INR 0.95 (0.77-1.02)
[2018-10-26 05:51] LABS: EGFR Non-African American 138.9 (>60)
[2018-10-26 06:03] LABS: ABS Basophils 0 10^3/ul (0-0.2); ABS Eosinophils 0.1 10^3/ul (0-0.6); ABS Lymphocytes 0.9 10^3/ul (1.0-4.8); ABS Monocytes 0.4 10^3/ul (0-0.8); ABS Neutrophils 2.1 10^3/ul (1.5-7.7); ABS Nucleated RBC 0 10^3/ul; Eosinophil % 1.9 %; Hematocrit 43 % (42-52); Lymphocyte % 25.4 %; Mean Corpuscular HGB Conc 33 g/dl (31-36); Mean Corpuscular Hemoglobin 31 pg (27-31); Mean Corpuscular Volume 94 fL (80-94); Mean Platelet Volume 8.7 fL (7.4-10.4); Nucleated Red Blood Cells % 0.1; Platelet Count 78 10^3/ul (150-450); Red Blood Count 4.54 10^6/ul (4.00-5.40); Red Cell Distribution Width 14 % (10.5-15); White Blood Count 3.5 10^3/ul (3.5-10.8)
[2018-10-26] MEDS: Folic Acid TAB* 1 MG PO SCH (08:17)
[2018-10-26] MEDS: Multivitamins/Minerals TAB PO SCH (08:17)
[2018-10-26] MEDS: Thiamine TAB* 100 MG TAB PO SCH (08:17)
[2018-10-26] MEDS: Ondansetron INJ* 2 MG/ML VIAL IV PRN (08:32)
[2018-10-26 10:26] VITALS: BP 154/83
[2018-10-26] MEDS ORDERED: NS 0.9% 1000 ML* 1,000 ML IV SCH (13:00)
--- NOTE | 2018-10-26 14:18 | CONSULT ---
Identification - Patient Identification Reason for Psychiatric Consultation: Suicidal Ideation -: Patient is a 28 year old, M admitted on 10/24/18. - MHU Identification Employment Status: Unemployed Hx Psychiatric Hospitalization: Yes History - Objective HPI: Psychiatry is asked to see this 28 y.o. single, white male with a history of alcoholism, currently admitted to telemetry for acute alcohol detoxification, presumably due to a suicidal statement he is alleged to have made in the ER while intoxicated. Marbin denies SI and states that he feels safe for discharge. His plan is to live with his mother and go to meetings in the community. His stated plan thereafter is to pursue inpatient drug and alcohol rehabilitation at [facility] sometime after the Holidays. He strenuously denies SI and is calm and cooperative on examination. Exam Appearance: Well Developed/Nourished Hygiene: Normal Grooming: Well Kept Psychomotor Activities: Normal Exhibits Abnormal Movement: No Attitude and Relatedness: Cooperative Eye Contact: Good - Speech Quality: Unpressured Latencies: Normal Quantity: Appropriate Patient's Decription of Mood: "Good" Observed Affect: Good Affect Consistent with: Euthymia Patient's Thought Process: Coherent Thought Content: No Passive Wish, No Suicidal Planning, No Homicidal Ideation, No Paranoid Ideation Experiencing Hallucinations: No, Sensorium is Clear Type of Hallucinations: Visual: No, Auditory: No, Command: No Level of Consciousness: Alert Orientation: Yes Intact, Yes Orientated to Time, Yes Orientated to Place, Yes Orientated to Person Impulse Control: Tenuous Insight and Judgement: Fair Impression - Impression Clinical Impression: 28 y.o. single, white male with a history of alcoholism, currently admitted to telemetry for acute alcohol detoxification, presumably due to a suicidal statement he is alleged to have made in the ER while intoxicated. Inpatient DSM-V Dx: F10.20 Merits Inpatient Hospitalization: Yes MHU: Problem List - Patient Problems (1) Alcohol use disorder, severe, dependence Current Visit: Yes Status: Acute Code(s): F10.20 - ALCOHOL DEPENDENCE, UNCOMPLICATED SNOMED Code(s): 095958130 Plan - Treatment Plan Treatment Plan: The patient is psychiatrically cleared. I have written an order discontinuing his 1:1 observations. Recommend social work consultation to assist with substance abuse follow up care. Psychiatry is signing off. Medications: Current Medications Acetaminophen (Tylenol Tab*) 650 mg PO Q4H PRN PRN Reason: FEVER/PAIN Last Admin: 10/25/18 08:15 Dose: 650 mg Albuterol (Ventolin 2.5 Mg/3 Ml Neb.Shanna*) 2.5 mg INH Q2H PRN PRN Reason: SOB/WHEEZING Device (Nicotine Mouth Piece*) 1 each INH ONCE PRN PRN Reason: CRAVINGS Folic Acid (Folvite Tab*) 1 mg PO DAILY [facility] Last Admin: 10/26/18 08:17 Dose: 1 mg Sodium Chloride (Ns 0.9% 1000 Ml*) 1,000 mls @ 125 mls/hr IV PER RATE MELANIE Lorazepam (Ativan Inj*) 1 mg IV Q12H [facility]; Taper Stop: 10/27/18 19:44 Last Admin: 10/26/18 04:44 Dose: 1 mg Lorazepam (Ativan Inj*) 0 - 3 mg IV PUSH .PER [facility] PROTOCOL [facility]; Protocol Last Admin: 10/26/18 10:38 Dose: 1 mg Multivitamins/Minerals (Theragran/Minerals Tab*) 1 tab PO DAILY [facility] Last Admin: 10/26/18 08:17 Dose: 1 tab Nicotine (Nicotine Inhaler*) 10 mg INH Q2H PRN PRN Reason: CRAVING Ondansetron HCl (Zofran Inj*) 4 mg IV Q6H PRN PRN Reason: NAUSEA/VOMITING Last Admin: 10/26/18 08:32 Dose: 4 mg Thiamine HCl (Vitamin B-1 Tab*) 100 mg PO DAILY [facility] Last Admin: 10/26/18 08:17 Dose: 100 mg - Discharge Plan Discharge Plan: Drug/Alcohol Rehab
--- NOTE | 2018-10-27 00:13 | DS ---
AMA DISCHARGE SUMMARY: DATE OF ADMISSION: 10/24/18 DATE OF DISCHARGE: 10/26/18 PRIMARY DIAGNOSES: 1. Alcohol withdrawal. 2. Alcohol dependence. 3. Hepatitis C. 4. Rhabdomyolysis. 5. Suicidal ideation. BRIEF HOSPITAL COURSE: A 28-year-old male with history of substance abuse and significant alcohol us e, came into the hospital for alcohol withdrawal, was also initially noted to make some suicidal stat ements and was on one-to-one observation. The patient was seen by Psych, Dr. Lindsey, and he was psychi atrically cleared. However, the patient also noted to have elevated CPK and rhabdomyolysis. Also, th e patient's last drink was 72 hours previously and the patient is very high risk for withdrawal and h as been on the withdrawal protocol here and was receiving IV fluids for his rhabdomyolysis; however, at this time, the patient wants to go against medical advice. The patient is fully capable of making his own decisions. The risk of seizure and further muscle breakdown and spiraling downwards have al ready been discussed in detail with the patient. The patient is also high risk for suicide with his history of depression and drug and alcohol use; however, the patient is at this time able to complete ly make his own decisions, has been cleared psychiatrically by Psych and still wishes to go against m edical advice. AMA paperwork done. [id number]/[facility] #: [id number]
== END 2018-10-26 14:54 | disposition left against medical advice (07) | DRG 770 ==
LOC: ED 19:06 → MEDTELE 23:46
PROVIDERS: ADMIT Internal Medicine; ATTEND Internal Medicine
DX: F10.239 Alcohol dependence with withdrawal, unspecified (principal); R45.851 Suicidal ideations; M62.82 Rhabdomyolysis; F32.9 Major depressive disorder, single episode, unspecified; J45.909 Unspecified asthma, uncomplicated; I48.91 Unspecified atrial fibrillation; L40.9 Psoriasis, unspecified; Y90.8 Blood alcohol level of 240 mg/100 ml or more; F10.229 Alcohol dependence with intoxication, unspecified; F17.210 Nicotine dependence, cigarettes, uncomplicated; B19.20 Unspecified viral hepatitis C without hepatic coma; I10 Essential (primary) hypertension; F90.9 Attention-deficit hyperactivity disorder, unspecified type; R74.8 Abnormal levels of other serum enzymes; Z81.8 Family history of other mental and behavioral disorders; Z88.8 Allergy status to other drugs, medicaments and biological substances; Z91.030 Bee allergy status; Z91.5 Personal history of self-harm; Z86.19 Personal history of other infectious and parasitic diseases; Z56.0 Unemployment, unspecified
CPT/HCPCS: 36415; 80048; 80053; 80307; 80320; 80329; 81003; 81015; 82550; 83735; 84443; 85025; 85060; 85610; 87086; 93005; 99284; A9270-GY; G0480; J0610; J1630; J1650; J2060; J2405; J3360; J3410; J3411

== ENCOUNTER 2019-04-28 18:22 | Emergency (ER) | payer OTHER ==
[2019-04-28 19:02] VITALS: BP 114/75
[2019-04-28] MEDS ORDERED: Ondansetron ODT TAB* 4 MG SL ONE (19:36)
--- NOTE | 2019-04-28 19:44 | UC ---
Abdominal Pain Male HPI - HPI Summary HPI Summary: 29 year old male, h/o ETOH use, stopped ~ 6 months ago, presents for evaluation after sickness this weekend. + nausea, vomiting multiple times from sun- sunday , fever 101, diarrhea, abdominal cramping, pain. Patient states sypmtoms improved today, able to hold down foods. + headache since this weekend, improving, diffuse throughout. - History of Current Complaint Chief Complaint: UCGeneralIllness Stated Complaint: VOMITING,HEADACHE Time Seen by Provider: 04/28/19 19:20 Hx Obtained From: Patient Onset/Duration: Sudden Onset, Lasting Days Timing: Constant Severity Initially: Moderate Severity Currently: Mild Pain Intensity: 3 Pain Scale Used: 0-10 Numeric Location: Diffuse, Other - none currently Character: Aching, Cramping, Sharp Aggravating Factor(s): Food Alleviating Factor(s): Rest Associated Signs And Symptoms: Positive: Fever - resolved, Decreased Appetite, Vomiting, Diarrhea. Negative: Negative, Blood in Stool - Allergies/Home Medications Allergies/Adverse Reactions: Allergies Allergy/AdvReac Type Severity Reaction Status Date / Time bee venom protein (honey bee) Allergy Anaphylatic Verified 04/28/19 19:03 Shock haloperidol [From Haldol] Allergy See Comment Verified 04/28/19 19:03 promethazine Allergy See Comment Verified 04/28/19 19:03 Home Medications: Home Medications Trazodone HCl 100 mg PO DAILY 04/28/19 [History Confirmed 04/28/19] busPIRone TAB* [Buspar TAB *] 15 mg PO BID 04/28/19 [History Confirmed 04/28/19] PMH/Surg Hx/FS Hx/Imm Hx Previously Healthy: Yes - h/o ETOH abuse - Surgical History Surgical History: Unable to Obtain/Confirm Surgery Procedure, Year, and Place: 4 skin grafts - Family History Known Family History: Negative: Blood Disorder Family History: Mother with depression - Social History Alcohol Use: Daily Alcohol Amount: 1L/ day Substance Use Type: Heroin, Marijuana Substance Use Comment - 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 Smoking Status (MU): Light Every Day Tobacco Smoker Type: Cigarettes Amount Used/How Often: 1/4 pack day Household Exposure Type: Cigarettes - Immunization History Most Recent Influenza Vaccination: 07/17/18 Most Recent Tetanus Shot: unknown Most Recent Pneumonia Vaccination: 09/17/18 Review of Systems All Other Systems Reviewed And Are Negative: Yes Constitutional: Positive: Negative Gastrointestinal: Positive: Abdominal Pain, Vomiting, Diarrhea, Nausea Is Patient Immunocompromised?: No Physical Exam Triage Information Reviewed: Yes Appearance: Well-Appearing, No Pain Distress, Well-Nourished Vital Signs: Initial Vital Signs Temp 98.5 F 04/28/19 18:58 Pulse 95 04/28/19 18:58 Resp 16 04/28/19 18:58 BP 114/75 04/28/19 18:58 Pulse Ox 99 04/28/19 18:58 Vital Signs Reviewed: Yes Eyes: Positive: Conjunctiva Clear Neck: Positive: Supple, Nontender Respiratory: Positive: Chest non-tender, Lungs clear, Normal breath sounds, No respiratory distress, No accessory muscle use. Negative: Crackles, Rhonchi, Stridor, Wheezing Cardiovascular: Positive: RRR, No Murmur Abdomen Description: Positive: Nontender, No Organomegaly, Soft. Negative: CVA Tenderness (R), CVA Tenderness (L), Distended, Guarding, Hepatomegaly, Splenomegaly Bowel Sounds: Positive: Hyperactive - mild Musculoskeletal Exam: Normal Neurological Exam: Normal Psychological Exam: Normal Skin Exam: Normal Abd Pain Male Course/Dx - Course Course Of Treatment: Gastroenteritis - Increase fluid intake - Zofran as needed every 6-8 hours for nausea - Tylenol as needed for pain, do not use motrin/ ibuprofen, alleve while having bowel upset. - Willacy diet, introduce foods slowly. - Return to ER if needed for increased symptoms or no improvement - Differential Dx/Clinical Impression Differential Diagnosis/HQI/PQRI: Appendicitis, Constipation Provider Diagnosis: Gastroenteritis Discharge - Sign-Out/Discharge Documenting (check all that apply): Patient Departure All imaging exams completed and their final reports reviewed: No Studies - Discharge Plan Condition: Good Disposition: HOME Prescriptions: Ondansetron ODT TAB* [Zofran 4 MG Odt TAB*] 4 mg PO Q6H PRN #5 tab.odt PRN Reason: Nausea Patient Education Materials: Gastroenteritis (ED), Acute Nausea and Vomiting ( ED) Referrals: No Primary Care Phys,NOPCP [Primary Care Provider] - Additional Instructions: - Increase fluid intake - Zofran as needed every 6-8 hours for nausea - Tylenol as needed for pain, do not use motrin/ ibuprofen, alleve while having bowel upset. - Willacy diet, introduce foods slowly. - Return to ER if needed for increased symptoms or no improvement - Billing Disposition and Condition Condition: GOOD Disposition: Home
== END 2019-04-28 19:48 | disposition home or self-care (01) ==
LOC: UCCORT 18:22
DX: K52.9 Noninfective gastroenteritis and colitis, unspecified (principal); Z88.8 Allergy status to other drugs, medicaments and biological substances; Z91.030 Bee allergy status; F17.210 Nicotine dependence, cigarettes, uncomplicated
CPT/HCPCS: 99212; A9270-GY; G0463

== ENCOUNTER 2019-08-26 17:41 | Emergency (ER) | payer OTHER ==
[2019-08-26 18:22] VITALS: BP 114/72
[2019-08-26] MEDS ORDERED: Penicillin VK TAB* 250 MG PO ONE (19:13)
--- NOTE | 2019-08-26 19:14 | UC ---
Dental HPI - HPI Summary HPI Summary: The patient is a 29-year-old male with a broken right upper molar times weeks to months. Initially did not give him much discomfort. His pain is increased over the past 2-3 days. He denies any fever. This pain relieves with ibuprofen. He will not be able to get in to see his dentist until later this week. He is an alcoholic and drug addict in remission. - History of Current Complaint Chief Complaint: UCDentalProblem Stated Complaint: TOOTH PAIN Time Seen by Provider: 08/26/19 19:06 Hx Obtained From: Patient Onset/Duration: Sudden Onset, Gradual Onset Severity: Moderate Pain Intensity: 7 Pain Scale Used: 0-10 Numeric Alleviating Factor(s): OTC Meds Related History: Previous Dental Care on Same Tooth Dental: 1 - broken tooth - Allergies/Home Medications Allergies/Adverse Reactions: Allergies Allergy/AdvReac Type Severity Reaction Status Date / Time bee venom protein (honey bee) Allergy Anaphylatic Verified 08/26/19 18:22 Shock haloperidol [From Haldol] Allergy See Comment Verified 08/26/19 18:22 promethazine Allergy See Comment Verified 08/26/19 18:22 PMH/Surg Hx/FS Hx/Imm Hx Previously Healthy: Yes Cardiovascular History: Hypertension, Atrial Fibrillation - holiday heart GI/ History: Ulcer - due to ETOH - Surgical History Surgical History: Yes Surgery Procedure, Year, and Place: 4 skin grafts - Family History Known Family History: Positive: Non-Contributory Negative: Blood Disorder Family History: Mother with depression - Social History Alcohol Use: None Alcohol Amount: 1L/ day Substance Use Type: Heroin, Marijuana Substance Use Comment - 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 Smoking Status (MU): Heavy Every Day Tobacco Smoker Type: Cigarettes Amount Used/How Often: 1/4 pack day Household Exposure Type: Cigarettes - Immunization History Most Recent Influenza Vaccination: 07/17/18 Most Recent Tetanus Shot: unknown Most Recent Pneumonia Vaccination: 09/17/18 Review of Systems All Other Systems Reviewed And Are Negative: Yes Constitutional: Positive: Negative Skin: Positive: Negative Eyes: Positive: Negative ENT: Positive: Dental Pain Respiratory: Positive: Negative Cardiovascular: Positive: Negative Gastrointestinal: Positive: Negative Genitourinary: Positive: Negative Motor: Positive: Negative Neurovascular: Positive: Negative Musculoskeletal: Positive: Negative Neurological: Positive: Negative Psychological: Positive: Negative Physical Exam Triage Information Reviewed: Yes Appearance: Well-Appearing, No Pain Distress, Well-Nourished Vital Signs: Initial Vital Signs Temp 97.0 F 08/26/19 18:18 Pulse 79 08/26/19 18:18 Resp 18 08/26/19 18:18 BP 114/72 08/26/19 18:18 Pulse Ox 99 08/26/19 18:18 Vital Signs Reviewed: Yes Eyes: Positive: Conjunctiva Clear ENT: Positive: TMs normal, Uvula midline. Negative: Nasal congestion, Nasal drainage, Tonsillar swelling, Tonsillar exudate, Hoarse voice Dental: Positive: Other: - abysmal dentition with man missing and fractured teeth Neck: Positive: Supple, Nontender Respiratory: Positive: Lungs clear, Normal breath sounds, No respiratory distress, No accessory muscle use Cardiovascular: Positive: RRR, No Murmur Musculoskeletal: Positive: ROM Intact, No Edema Neurological: Positive: Alert, Muscle Tone Normal Psychological: Positive: Normal Response To Family Skin Exam: Normal Dental Complaint Course/Dx - Differential Dx/Diagnosis Provider Diagnosis: Toothache Discharge ED - Sign-Out/Discharge Documenting (check all that apply): Patient Departure All imaging exams completed and their final reports reviewed: No Studies - Discharge Plan Condition: Stable Disposition: HOME Prescriptions: Penicillin VK 500 MG TAB(NF) [Penicillin VK 500 mg Tab] 500 mg PO QID #28 tab Patient Education Materials: Toothache (ED) Referrals: No Primary Care Phys,NOPCP [Primary Care Provider] - Additional Instructions: advil or aleve see dentist first available appt recheck for worsening symptoms or if not better in 3 days - Billing Disposition and Condition Condition: STABLE Disposition: Home
== END 2019-08-26 19:24 | disposition home or self-care (01) ==
LOC: UCEAST 17:41
DX: K08.89 Other specified disorders of teeth and supporting structures (principal); F17.210 Nicotine dependence, cigarettes, uncomplicated; I10 Essential (primary) hypertension; Z88.8 Allergy status to other drugs, medicaments and biological substances; Z91.030 Bee allergy status
CPT/HCPCS: 99212; A9270-GY; G0463

== ENCOUNTER 2019-10-28 15:00 | Emergency (ER) | payer OTHER ==
[2019-10-28 15:19] VITALS: BP 128/74
[2019-10-28 16:04] LABS: Influenza A Molecular NEGATIVE (Negative); Influenza B Molecular NEGATIVE (Negative)
--- NOTE | 2019-10-28 16:44 | UC ---
UC General HPI - HPI Summary HPI Summary: 29 yo gentleman c/o progressively worse x 3-4 days cough, fever, some gi upset, mild st. No rash. Works outside. + tobacco but less recently. - History of Current Complaint Chief Complaint: UCRespiratory Stated Complaint: FLU SYMPTOMS Time Seen by Provider: 10/28/19 15:41 Hx Obtained From: Patient Pain Intensity: 4 - Allergy/Home Medications Allergies/Adverse Reactions: Allergies Allergy/AdvReac Type Severity Reaction Status Date / Time bee venom protein (honey bee) Allergy Anaphylatic Verified 10/28/19 15:19 Shock haloperidol [From Haldol] Allergy See Comment Verified 10/28/19 15:19 promethazine Allergy See Comment Verified 10/28/19 15:19 PMH/Surg Hx/FS Hx/Imm Hx Previously Healthy: Yes - Surgical History Surgical History: Yes Surgery Procedure, Year, and Place: 4 skin grafts - Family History Known Family History: Positive: Non-Contributory Negative: Blood Disorder Family History: Mother with depression - Social History Alcohol Use: None Alcohol Amount: 1L/ day history Substance Use Type: None Substance Use Comment - 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 Smoking Status (MU): Heavy Every Day Tobacco Smoker Type: Cigarettes Amount Used/How Often: 1/4 pack day Household Exposure Type: Cigarettes - Immunization History Most Recent Influenza Vaccination: 07/17/18 Most Recent Tetanus Shot: unknown Most Recent Pneumonia Vaccination: 09/17/18 Review of Systems All Other Systems Reviewed And Are Negative: Yes Constitutional: Positive: Fever Skin: Positive: Negative Eyes: Positive: Negative ENT: Positive: Sore Throat, Nasal Discharge, Sinus Congestion Respiratory: Positive: Cough Cardiovascular: Positive: Negative Gastrointestinal: Positive: Other - see hpi Genitourinary: Positive: Negative Motor: Positive: Negative Neurovascular: Positive: Negative Musculoskeletal: Positive: Negative Neurological: Positive: Negative Psychological: Positive: Negative Is Patient Immunocompromised?: No Physical Exam Triage Information Reviewed: Yes Appearance: Well-Nourished - sitting up, conversing easily. Nad. but looks tired Vital Signs: Initial Vital Signs Temp 98.8 F 10/28/19 15:14 Pulse 90 10/28/19 15:14 Resp 18 10/28/19 15:14 BP 128/74 10/28/19 15:14 Pulse Ox 100 10/28/19 15:14 Vital Signs Reviewed: Yes Eye Exam: Normal ENT: Positive: Pharyngeal erythema, Nasal congestion, TM dull, Uvula midline Neck exam: Normal Neck: Positive: Supple, Nontender, No Lymphadenopathy Respiratory Exam: Other Respiratory: Positive: No respiratory distress, No accessory muscle use, Rhonchi , Wheezing Cardiovascular Exam: Normal Cardiovascular: Positive: RRR, No Murmur, Pulses Normal, Brisk Capillary Refill Abdominal Exam: Normal Abdomen Description: Positive: Nontender Musculoskeletal Exam: Normal Neurological Exam: Normal - grossly nonfocal Psychological Exam: Normal - nad Skin Exam: Normal - no visible or reported rash Course/Dx - Course Course Of Treatment: Rx - azithromycin, albuterol. Influenza a/b neg RST neg Addendum Rx via K[facility] Cook d/t electronic error. - Diagnoses Provider Diagnosis: Bronchitis, Pharyngitis Discharge ED - Sign-Out/Discharge Documenting (check all that apply): Patient Departure All imaging exams completed and their final reports reviewed: No Studies - Discharge Plan Condition: Stable Disposition: HOME Prescriptions: Albuterol HFA INHALER* [Ventolin HFA Inhaler*] 1 - 2 puff INH Q4H PRN #1 mdi PRN Reason: Wheezing Azithromyxin BERNARDO (NF) [Z-Bernardo (Zithromax) 250 mg tabs #6] 2 tab PO .TODAY, THEN 1 DAILY #6 tab Patient Education Materials: Pharyngitis (ED), Lymphadenopathy (ED), Acute Bronchitis (ED) Forms: *Work Release Referrals: [facility] [place]] No Primary Care Phys,NOPCP [Primary Care Provider] - - Billing Disposition and Condition Condition: STABLE Disposition: Home
== END 2019-10-28 16:59 | disposition home or self-care (01) ==
LOC: UCEAST 15:00
DX: J40 Bronchitis, not specified as acute or chronic (principal); J02.9 Acute pharyngitis, unspecified; Z91.030 Bee allergy status; Z88.8 Allergy status to other drugs, medicaments and biological substances; F17.210 Nicotine dependence, cigarettes, uncomplicated
CPT/HCPCS: 87651; 99212; G0463

== ENCOUNTER 2020-02-15 14:04 | Emergency (ER) | payer BC, OTHER ==
--- OUTSIDE RECORDS SUMMARY | 2020-02-15 14:12 | XMS REPORT ---
:1990 Author Name OMER COLLINS Address [address] [facility] [address] [place] [address] Care Team Providers Name Role Phone OMER COLLINS Primary Care Physician Unavailable Allergies, Adverse Reactions, Alerts Allergy Code CodeSystem Reaction Severity Criticality Status Start Substance Date Moderate Medications Medication Medication Medication Start Stop Route Dose Status Fill Code CodeSystem Date Date Instructions trazodone 543353 RxNorm 2019-07 oral 100 mg 1 active Take 1 tablet -10 tablet by mouth at at bedtime as bedtime needed for 30 day(s) Suboxone 1428117 RxNorm 2019-10- SL 12-3 mg completed for -11-25 film day(s) Cymbalta 726290 RxNorm 2019-05- oral 30 mg 1 completed Take -16 06-24 capsule, capsule by delayed mouth every release( morning for DR/EC) 28 day(s) every morning buprenorphin 5705699 RxNorm 2019-11 SL 8-[address] 1 film e-naloxone -14 film under tongue twice a twice a day day for 28 day(s) buspirone 725529 RxNorm 2018- oral 15 mg completed 07-16 tablet buprenorphin [id number] RxNorm 2019-04- SL 8-[address] 1 film e-naloxone -18 - film under tongue twice a twice a day day for 28 day(s) buprenorphin 1539453 RxNorm 2019-05- SL 8-2 mg completed for e-naloxone -16 - film day(s) buprenorphin 6043705 RxNorm 2019-07- SL 8-[address] 1 film e-naloxone -10 -17 film under tongue twice a twice a day day for 28 day(s) buprenorphin 4359352 RxNorm 2019-06- SL 8-[address] 1 film e-naloxone -13 - film under tongue twice a twice a day day for 28 day(s) Relevant diagnostic tests/laboratory data Narrative No Information Procedures Procedure Code CodeSystem Target Date of Status Service Device Device Device Name Site Procedure Delivery Code Name UID Location SNOMED-CT () 2019-04-24 completed [facility] [address] [place], [address] [id number] SNOMED-CT () 2019-04-24 completed [facility] [address] [place], [address] [id number] SNOMED-CT () 2019-04-17 completed [facility] [address] [place], [address] [id number] SNOMED-CT () 2019-05-01 completed [facility] [address] [place], [address] [phone] SNOMED-CT () 2019-05-01 completed [facility] [address] [place], [address] [phone] SNOMED-CT () 2019-04-29 completed [facility] [address] [place], [address] [id number] SNOMED-CT () 2019-05-09 completed [facility] [address] [place], [address] [id number] SNOMED-CT () 2019-05-08 completed [facility] [address] [place], [address] [phone] SNOMED-CT () 2019-05-06 completed [facility] [address] [place], [address] [id number] SNOMED-CT () 2019-05-16 completed [facility] [address] [place], [address] [phone] SNOMED-CT () 2019-05-28 completed [facility] [address] [place], [address] [phone] SNOMED-CT () 2019-05-27 completed [facility] [address] [place], [address] [phone] SNOMED-CT () 2019-06-04 completed [facility] [address] [place], [address] [id number] SNOMED-CT () 2019-06-04 completed [facility] [address] [place], [address] [phone] SNOMED-CT () 2019-06-18 completed [facility] [address] [place], [address] [phone] SNOMED-CT () 2019-06-11 completed [facility] [address] [place], [address] [id number] SNOMED-CT () 2019-06-25 completed [facility] [address] [place], [address] [phone] SNOMED-CT () 2019-06-25 completed [facility] [address] [place], [address] [phone] SNOMED-CT () 2019-06-24 completed [facility] [address] [place], [address] [id number] SNOMED-CT () 2019-07-02 completed [facility] [address] [place], [address] [phone] SNOMED-CT () 2019-07-01 completed [facility] [address] [place], [address] [id number] SNOMED-CT () 2019-07-07 completed [facility] [address] [place], [address] [id number] SNOMED-CT () 2019-07-30 completed [facility] [address] [place], [address] [phone] SNOMED-CT () 2019-07-28 completed [facility] [address] [place], [address] [id number] SNOMED-CT () 2019-07-22 completed [facility] [address] [place], [address] [id number] SNOMED-CT () 2019-08-13 completed [facility] [address] [place], [address] [id number] SNOMED-CT () 2019-08-12 completed [facility] [address] [place], [address] [phone] SNOMED-CT () 2019-08-12 completed [facility] [address] [place], [address] [phone] SNOMED-CT () 2019-08-20 completed [facility] [address] [place], [address] [phone] SNOMED-CT () 2019-08-19 completed [facility] [address] [place], [address] [phone] SNOMED-CT () 2019-08-27 completed [facility] [address] [place], [address] [phone] SNOMED-CT () 2019-09-03 completed [facility] [address] [place], [address] [id number] SNOMED-CT () 2019-09-02 completed [facility] [address] [place], [address] [phone] SNOMED-CT () 2019-09-11 completed [facility] [address] [place], [address] [phone] SNOMED-CT () 2019-09-10 completed [facility] [address] [place], [address] [phone] SNOMED-CT () 2019-09-16 completed [facility] [address] [place], [address] [phone] SNOMED-CT () 2019-09-15 completed [facility] [address] [place], [address] [phone] SNOMED-CT () 2019-09-23 completed [facility] [address] [place], [address] [phone] SNOMED-CT () 2019-09-30 completed [facility] [address] [place], [address] [phone] SNOMED-CT () 2019-09-30 completed [facility] [address] [place], [address] [phone] SNOMED-CT () 2019-10-07 completed [facility] [address] [place], [address] [phone] SNOMED-CT () 2019-10-14 completed [facility] [address] [place], [address] [phone] SNOMED-CT () 2019-10-28 completed [facility] [address] [place], [address] [phone] SNOMED-CT () 2019-10-28 completed [facility] [address] [place], [address] [phone] SNOMED-CT () 2019-11-06 completed [facility] [address] [place], [address] [id number] SNOMED-CT () 2019-11-18 completed [facility] [address] [place], [address] [phone] SNOMED-CT () 2019-11-25 completed [facility] [address] [place], [address] [phone] SNOMED-CT () 2019-11-25 completed [facility] [address] [place], [address] [phone] SNOMED-CT () 2019-12-02 completed [facility] [address] [place], [address] [phone] SNOMED-CT () 2019-12-15 completed [facility] [address] [place], [address] [phone] SNOMED-CT () 2019-12-22 completed [facility] [address] [place], [address] [phone] SNOMED-CT () 2019-12-30 completed [facility] [address] [place], [address] [phone] SNOMED-CT () 2020-01-08 completed [facility] [address] [place], [address] [id number] SNOMED-CT () 2020-01-15 completed [facility] [address] [place], [address] [phone] SNOMED-CT () 2020-01-08 completed [facility] [address] [place], [address] [phone] SNOMED-CT () 2020-01-13 completed [facility] [address] [place], [address] [phone] SNOMED-CT () 2019-12-25 completed [facility] [address] [place], [address] [phone] Encounters/Encounter Diagnoses Encounter Encounter Diagnosis Diagnosis Diagnosis Date of Service Name Code Code Name CodeSystem Diagnosis Delivery Location Individual [id number] SNOMED-CT 2020-01-[address] [facility] [address] [place], [address] Vital Signs No Information Social History Element Description Description Start End Code CodeSystem AdditionalInfo Date Date SexAssignedAtBirth Male 1989-0 M AdministrativeGender 6-14 Hospital Discharge Instructions Reason For Referral Medical Equipment FDA Assessments Goals Section Goals Planned DateTime Increased Vona from Addiction 2019-05-08
[2020-02-15 15:05] VITALS: BP 143/76
--- NOTE | 2020-02-15 15:07 | UC ---
Throat Pain/Nasal Nabil HPI - HPI Summary HPI Summary: 29-year-old male comes in to chief complaint of feeling ill for about one week. Started with some nausea and diarrhea initially. Last couple days he's gotten sinus drainage to include yellow-green rhinorrhea with blood in it. Also does suffer some cough. He is a smoker. Is mildly short of breath. Denies any fevers or chills. - History of Current Complaint Chief Complaint: UCRespiratory Stated Complaint: COUGH Time Seen by Provider: 02/15/20 14:36 Pain Intensity: 1 - Allergies/Home Medications Allergies/Adverse Reactions: Allergies Allergy/AdvReac Type Severity Reaction Status Date / Time bee venom protein (honey bee) Allergy Anaphylatic Verified 02/15/20 14:32 Shock haloperidol [From Haldol] Allergy See Comment Verified 02/15/20 14:32 promethazine Allergy See Comment Verified 02/15/20 14:32 Home Medications: Home Medications Trazodone HCl 50 mg PO DAILY 04/28/19 [History Confirmed 02/15/20] Buprenorp/Nalox 8-2 MG FILM [Suboxone 8 mg-2 mg Sl Film] 1 each SL BID 07/09/19 [History Confirmed 02/15/20] Amoxicillin PO (*) [Amoxicillin 875 MG (*)] 875 mg PO BID #20 tab 02/15/20 [Rx] PMH/Surg Hx/FS Hx/Imm Hx Previously Healthy: Yes - Surgical History Surgical History: Yes Surgery Procedure, Year, and Place: 4 skin grafts - Family History Known Family History: Positive: Non-Contributory Negative: Blood Disorder Family History: Mother with depression - Social History Alcohol Use: None Alcohol Amount: 1L/ day history Substance Use Type: None Substance Use Comment - 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 Smoking Status (MU): Heavy Every Day Tobacco Smoker Type: Cigarettes Amount Used/How Often: 1/4 pack day Household Exposure Type: Cigarettes - Immunization History Most Recent Influenza Vaccination: 07/17/18 Most Recent Tetanus Shot: unknown Most Recent Pneumonia Vaccination: 09/17/18 Review of Systems All Other Systems Reviewed And Are Negative: Yes Constitutional: Positive: Other - see hpi Skin: Positive: Negative Eyes: Positive: Negative ENT: Positive: Nasal Discharge, Sinus Congestion Respiratory: Positive: Shortness Of Breath, Cough Cardiovascular: Positive: Negative Gastrointestinal: Positive: Diarrhea, Nausea Motor: Positive: Negative Neurovascular: Positive: Negative Musculoskeletal: Positive: Negative Neurological/Mental Status: Positive: Negative Psychological: Positive: Negative Is Patient Immunocompromised?: No Physical Exam Triage Information Reviewed: Yes Appearance: No Pain Distress, Well-Nourished, Ill-Appearing - mild Vital Signs: Initial Vital Signs Temp 98.1 F 02/15/20 15:04 Pulse 96 02/15/20 15:04 Resp 18 02/15/20 15:04 BP 143/76 02/15/20 15:04 Pulse Ox 98 02/15/20 15:04 Vital Signs Reviewed: Yes Eye Exam: Normal Eyes: Positive: Conjunctiva Clear ENT: Positive: Pharynx normal, Nasal congestion, Nasal drainage Neck: Positive: Supple Respiratory: Positive: Lungs clear, Normal breath sounds, No respiratory distress Cardiovascular: Positive: RRR Musculoskeletal: Positive: Strength Intact, ROM Intact Neurological: Positive: Alert Psychological: Positive: Age Appropriate Behavior Skin Exam: Normal Throat Pain/Nasal Course/Dx - Course Course Of Treatment: Patient is having yellow green rhinorrhea with blood. Discussed viral and bacterial infections. We will treat with amoxicillin. Covid is pending. Patient will treat symptomatically and follow up to [facility] with the Covid results. Patient's to get reevaluated if worse or any questions or concerns. - Differential Dx/Diagnosis Provider Diagnosis: Sinusitis Discharge ED - Sign-Out/Discharge Documenting (check all that apply): Patient Departure All imaging exams completed and their final reports reviewed: No Studies - Discharge Plan Condition: Stable Disposition: HOME Prescriptions: Amoxicillin PO (*) [Amoxicillin 875 MG (*)] 875 mg PO BID #20 tab Patient Education Materials: Sinusitis (ED) Forms: COVID-19 Tested & Isolation Referrals: [facility] [place] [facility] [Outside] [facility] [Outside] Additional Instructions: PLACE YOURSELF IN HOME ISOLATION. [facility]. CONTACT THEM TOMORROW IF YOU HAVE NOT HEARD FROM THEM. FOLLOW UP WITH YOUR DOCTOR IF NOT COMPLETELY IMPROVED. GO TO THE EMERGENCY DEPARTMENT IF WORSE OR ANY QUESTIONS OR CONCERNS. - Billing Disposition and Condition Condition: STABLE Disposition: Home
== END 2020-02-15 15:20 | disposition home or self-care (01) ==
LOC: UCEAST 14:04
DX: J32.9 Chronic sinusitis, unspecified (principal); Z20.828 Contact with and (suspected) exposure to other viral communicable diseases; Z88.8 Allergy status to other drugs, medicaments and biological substances; Z91.030 Bee allergy status; F17.210 Nicotine dependence, cigarettes, uncomplicated
CPT/HCPCS: 87635; 99213; G0463

== ENCOUNTER 2020-02-25 09:42 | Emergency (ER) | payer BC ==
--- OUTSIDE RECORDS SUMMARY | 2020-02-25 09:49 | XMS REPORT | Continuity of Care Document ---
:1990 External Reference #:[id number] Author Name Raymond Oliva M.D. (transmitted by agent of provider mAada Schmitt) Address [address] [place] [address] Problems Description No Active Problems Social History Type Date Description Comments Sex Unknown ETOH Use Denies alcohol use Tobacco Use Start: Unknown Heavy tobacco smoker (more than 10 cigarettes/day) Recreational Drug Use Denies Drug Use Smoking Status Reviewed: 02/23/20 Heavy tobacco smoker (more than 10 cigarettes/day) Allergies, Adverse Reactions, Alerts Active Allergies Reaction Severity Comments Date Haldol 02/23/2020 Promethazine 02/23/2020 Medications Active Medications SIG Qnty Indications Ordering Provider Date Ciprofloxacin HCL instill one drop 5ml H10.011 Raymond Oliva, 2019 0.3% in the right eye M.D. Solution Every Two Hours Azithromycin take 2 pills by 2tabs H10.011 Raymond Oliva, 02/23/2020 500mg Tablets mouth once M.D. Cipro instill 2 drops 100ml Raymond Oliva, 02/22/2020 250mg/5ML (5%) to the right eye M.D. Suspension Rec every 2 hours Immunizations Description No Information Available Vital Signs Description No Information Available Results Description No Information Available Procedures Date Code Description Status 02/23/2020 45672 New Patient Intermediate Exam Completed Medical Devices Description No Information Available Encounters Description No Information Available Assessments Date Code Description Provider 02/23/2020 H10.011 Acute follicular conjunctivitis, right eye Raymond Oliva M.D. Plan of Treatment Future Appointment(s):02/25/2020 9:00 am - Raymond Oliva M.D. at Rubén Ellison MD, 02/23/2020 - Raymond Oliva M.D.H10.011 Acute follicular conjunctivitis, right eyeNew Medication:Ciprofloxacin HCL 0.3 % - instill one drop in the right eye Every Two HoursAzithromycin 500 mg - take 2 pills by mouth onceNew Labs:Culture Eye & Gram Stain, Ordered: 02/23/20Comments: Smoking can increase the risk of developing or worsening any eye related disease , as well as affect your overall health. If you are a smoker, we strongly recommend that you quit.If you are not a smoker, we strongly recommend that you do not start. I WILL SEND THE CULTURE SWAB TO SEE WHICH BACTERIA GROWSUSE THE ANTIBIOTIC DROPS EVERY TWO HOURS TO THE RIGHT EYETAKE THE TWO ANTIBIOTIC PILL I SENT TO YOUR PHARMACY TODAYFollow up:SUNDAY CORNEA CHECK Functional Status Description No Information Available Mental Status Description No Information Available Referrals Description No Information Available
[2020-02-25 09:55] VITALS: BP 93/65
[2020-02-25] MEDS ORDERED: cefTRIAXone VIAL(*) 1,000 MG VIAL IM ONE (09:56)
[2020-02-25] MEDS ORDERED: Lidocaine 1% MPF* 2 ML VIAL INJ ONE (09:57)
[2020-02-25] MEDS ORDERED: Lidocaine 1% MPF ** 5 ML VIAL IM ONE (10:01)
--- NOTE | 2020-02-25 10:11 | UC ---
Eye Complaint HPI - HPI Summary HPI Summary: The patient is a 29-year-old male who was sent here to receive a 1 g shot of Rocephin at the direction of . He was seen at their office this morning. He has a tentative diagnosis of gonococcal conjunctivitis. He brought a copy of his office visit notes for us to review. He has had right eye redness and drainage for a few days. He has some right lid edema and erythema. He denies any change in his visual acuity. - History of Current Complaint Chief Complaint: UCEye Stated Complaint: EYE COMPLAINT Time Seen by Provider: 02/25/20 09:55 Hx Obtained From: Patient Onset/Duration: Gradual Onset, Lasting Days Timing: Constant Severity Initially: Mild Severity Currently: Moderate Pain Intensity: 5 Pain Scale Used: 0-10 Numeric Location of Injury: Conjunctiva Aggravating Factor(s): Light Associated Signs And Symptoms: Positive: Photophobia, Drainage (Purulent), Swelling - Allergies/Home Medications Allergies/Adverse Reactions: Allergies Allergy/AdvReac Type Severity Reaction Status Date / Time bee venom protein (honey bee) Allergy Anaphylatic Verified 02/25/20 09:49 Shock haloperidol [From Haldol] Allergy See Comment Verified 02/25/20 09:49 promethazine Allergy See Comment Verified 02/25/20 09:49 Home Medications: Home Medications Trazodone HCl 50 mg PO DAILY 04/28/19 [History Confirmed 02/25/20] Buprenorp/Nalox 8-2 MG FILM [Suboxone 8 mg-2 mg Sl Film] 1 each SL BID 07/09/19 [History Confirmed 02/25/20] Ciprofloxacin 0.3% OPTH.YURIY* [Cipro 0.3% Opth*] 1 drop RIGHT EYE Q2H 02/25/20 [ History Confirmed 02/25/20] PMH/Surg Hx/FS Hx/Imm Hx Previously Healthy: Yes - Surgical History Surgical History: Yes Surgery Procedure, Year, and Place: 4 skin grafts - Family History Known Family History: Positive: Hypertension, Non-Contributory Negative: Blood Disorder Family History: Mother with depression - Social History Alcohol Use: None Alcohol Amount: 1L/ day history Substance Use Type: None Substance Use Comment - 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 Smoking Status (MU): Heavy Every Day Tobacco Smoker Type: Cigarettes Amount Used/How Often: 1/2 pack day Household Exposure Type: Cigarettes - Immunization History Most Recent Influenza Vaccination: 07/17/18 Most Recent Tetanus Shot: unknown Most Recent Pneumonia Vaccination: 09/17/18 Review of Systems All Other Systems Reviewed And Are Negative: Yes Constitutional: Positive: Negative Skin: Positive: Negative Eyes: Positive: Drainage, Eye Redness, Photophobia ENT: Positive: Negative Respiratory: Positive: Negative Cardiovascular: Positive: Negative Gastrointestinal: Positive: Negative Genitourinary: Positive: Negative Motor: Positive: Negative Neurovascular: Positive: Negative Musculoskeletal: Positive: Negative Neurological/Mental Status: Positive: Negative Psychological: Positive: Negative Physical Exam Triage Information Reviewed: Yes Appearance: Well-Appearing, No Pain Distress, Well-Nourished Vital Signs: Initial Vital Signs Temp 98.6 F 02/25/20 09:45 Pulse 77 02/25/20 09:45 Resp 16 02/25/20 09:45 BP 93/65 02/25/20 09:45 Pulse Ox 98 02/25/20 09:45 Vital Signs Reviewed: Yes Eyes: Positive: Conjunctiva Inflamed - R, Discharge - R, Other: - eomi perrl ENT: Positive: Hearing grossly normal, Uvula midline. Negative: Nasal congestion, Nasal drainage, Tonsillar swelling, Tonsillar exudate, Hoarse voice , Dental tenderness Dental Exam: Normal Neck: Positive: Supple Respiratory: Positive: Lungs clear, Normal breath sounds, No respiratory distress, No accessory muscle use Cardiovascular: Positive: RRR Musculoskeletal: Positive: ROM Intact, No Edema Neurological: Positive: Alert Psychological Exam: Normal Skin Exam: Normal Eye Complaint Course/Dx - Differential Dx/Diagnosis Provider Diagnosis: Gonococcal conjunctivitis Discharge ED - Sign-Out/Discharge Documenting (check all that apply): Patient Departure All imaging exams completed and their final reports reviewed: No Studies - Discharge Plan Condition: Stable Disposition: HOME Patient Education Materials: Ceftriaxone (By injection) Forms: *Work Release Additional Instructions: see eyeglass cutter as plannned - Billing Disposition and Condition Condition: STABLE Disposition: Home
== END 2020-02-25 10:20 | disposition home or self-care (01) ==
LOC: UCEAST 09:42
DX: A54.31 Gonococcal conjunctivitis (principal); Z88.8 Allergy status to other drugs, medicaments and biological substances; Z91.030 Bee allergy status; F17.210 Nicotine dependence, cigarettes, uncomplicated
CPT/HCPCS: 96372; 99212; G0463; J0696

== ENCOUNTER 2021-03-21 16:39 | Inpatient (IN) ==
[2021-03-21] MEDS ORDERED: NS 0.9% 1000 ml BAG 1,000 ML IV ONE ×2 (17:34→20:18)
[2021-03-21] MEDS ORDERED: Thiamine 100 MG/ML 2 ml VIAL 100 MG, Folic Acid IV 1 MG, Multiple Vitamin IV ADULT 10 M... IV ONE (17:47)
[2021-03-21] MEDS ORDERED: Lorazepam PYXIS KEY PRN ×2 (17:48→18:58)
[2021-03-21] MEDS ORDERED: LORazepam 2 mg VIAL 1 ml IV PUSH ONE (17:48)
[2021-03-21] MEDS ORDERED: LORazepam 2 mg VIAL 1 ml IM ONE (18:58)
[2021-03-21] MEDS ORDERED: Famotidine IV 10 MG/ML 2 ml VIAL (20 mg) IV SLOW PU ONE (19:40)
[2021-03-21 19:58] LABS: ABS Lymphocytes 1.3 10^3/ul (1.0-4.8); ABS Monocytes 0.5 10^3/ul (0-0.8); ABS Neutrophils 4.4 10^3/ul (1.5-7.7); Eosinophil % 0.2 %; Hematocrit 49 % (42-52); Hemoglobin 16.9 g/dL (14.0-18.0); Lymphocyte % 21.2 %; Mean Corpuscular HGB Conc 35 g/dL (31-36); Mean Corpuscular Hemoglobin 33 pg (27-31); Mean Corpuscular Volume 94 fL (80-94); Mean Platelet Volume 8.1 fL (7.4-10.4); Platelet Count 244 10^3/uL (150-450); Red Blood Count 5.14 10^6 /uL (4.18-5.48); Red Cell Distribution Width 15 % (10-15); White Blood Count 6.2 10^3/uL (3.5-10.8)
[2021-03-21 20:00] LABS: Urine Appearance Clear; Urine Bilirubin Negative (Negative); Urine Blood Negative (Negative); Urine Color Straw; Urine Glucose Negative (Negative); Urine Ketones Negative (Negative); Urine Nitrite Negative (Negative); Urine Protein Negative (Negative); Urine Specific Gravity 1.003 (1.002-1.030); Urine Urobilinogen Negative (Negative)
[2021-03-21 20:14] LABS: ALT 74 U/L (7-52); AST 93 U/L (13-39); Albumin 4.1 g/dL (3.2-5.2); Albumin/Globulin Ratio 1.1 (1-3); Alkaline Phosphatase 94 U/L (34-104); Anion Gap 13 mmol/L (2-11); Blood Urea Nitrogen 7 mg/dL (6-24); CO2 Carbon Dioxide 22 mmol/L (22-32); Calcium 9.4 mg/dL (8.6-10.3); Chloride 101 mmol/L (101-111); EGFR Non-African American 122.3 (>60); Globulin 3.8 g/dL (2-4); Glucose 80 mg/dL (70-100); Lipase < 10 U/L (11.0-82.0); Magnesium 1.2 mg/dL (1.9-2.7); Potassium 3.3 mmol/L (3.5-5.0); Sodium 136 mmol/L (135-145); Total Protein 7.9 g/dL (6.4-8.9)
[2021-03-21] MEDS ORDERED: Iohexol 300 (CONTRAST) 10 ML SDV IV ONE (20:18)
[2021-03-21] MEDS ORDERED: Magnesium Sulfate 2 gm BAG 2 GM/50 ML BAG IVPB ONE (20:18)
[2021-03-21] MEDS ORDERED: Ondansetron 4 mg VIAL 2 MG/ML 2 ml VIAL IV ONE (20:26)
[2021-03-21] MEDS ORDERED: Piperacillin/Tazobac ADVAN 3.375 GM in NS 0.9% 100 ml BAG 100 ML IV ONE (20:38)
[2021-03-21 20:52] LABS: Creatine Kinase 73 U/L (10-223)
[2021-03-21 21:01] LABS: Urine Benzodiazepine Screen None Detected (None Detect); Urine Cannabinoids Screen None Detected (None Detect); Urine Opiates Screen None Detected (None Detect)
[2021-03-21] MEDS ORDERED: Zosyn per Pharmacy NOTE FOLLOW UP SCH (23:00)
[2021-03-21] MEDS ORDERED: Vancomycin 1,000 MG in NS 0.9% 250 ml 250 ML IVPB ONE (23:30)
[2021-03-21 23:57] LABS: C Reactive Protein < 1.00 mg/L (<8.01)
[2021-03-22] MEDS: NS 0.9% 1000 ml BAG 1,000 ML IV SCH ×3 (00:43→19:46)
[2021-03-22] MEDS: LORazepam 2 mg VIAL 1 ml IV SCH ×3 (01:06→15:11)
[2021-03-22] MEDS ORDERED: Vancomycin per Pharmacy 1 EA NOTE FOLLOW UP PRN (02:20)
[2021-03-22] MEDS: KCL 20 MEQ/100 ML IVPREMIX 20 MEQ/100 ML BAG IV SCH ×2 (02:48→05:13)
[2021-03-22] MEDS: ZOSYN 3.375 GM Q8H per EXTENDED INFUSION IV SCH ×2 (02:51→10:06)
[2021-03-22] MEDS: Ondansetron 4 mg VIAL 2 MG/ML 2 ml VIAL IV PRN ×3 (03:05→22:14)
[2021-03-22] MEDS ORDERED: KCL 20 MEQ/100 ML IVPREMIX 20 MEQ/100 ML BAG ONE (05:04)
[2021-03-22] MEDS: Nicotine PATCH 21 MG/24 HR PATCH TRANSDERM SCH (07:29)
[2021-03-22] MEDS ORDERED: Vancomycin 1,250 MG in NS 0.9% 250 ml 250 ML IVPB SCH (08:00)
[2021-03-22 10:27] LABS: ABS Eosinophils 0.1 10^3/ul (0-0.6); ABS Lymphocytes 1.3 10^3/ul (1.0-4.8); ABS Monocytes 0.4 10^3/ul (0-0.8); ABS Neutrophils 2.5 10^3/ul (1.5-7.7); Eosinophil % 1.5 %; Hematocrit 47 % (42-52); Hemoglobin 16.1 g/dL (14.0-18.0); Lymphocyte % 29.9 %; Mean Corpuscular HGB Conc 34 g/dL (31-36); Mean Corpuscular Hemoglobin 33 pg (27-31); Mean Corpuscular Volume 96 fL (80-94); Nucleated Red Blood Cells % 0.1; Platelet Count 188 10^3/uL (150-450); Red Blood Count 4.92 10^6 /uL (4.18-5.48); Red Cell Distribution Width 16 % (10-15); White Blood Count 4.4 10^3/uL (3.5-10.8)
[2021-03-22 10:46] LABS: Calcium 9.6 mg/dL (8.6-10.3); EGFR African American 108.7 (>60); EGFR Non-African American 89.8 (>60); Potassium 4.7 mmol/L (3.5-5.0)
[2021-03-22 10:47] LABS: C Reactive Protein < 1.00 mg/L (<8.01); Magnesium 1.9 mg/dL (1.9-2.7)
[2021-03-22] MEDS: LORazepam 2 mg VIAL 1 ml IV PUSH SCH ×3 (11:21→22:16)
[2021-03-23] MEDS: LORazepam 2 mg VIAL 1 ml IV PUSH SCH ×6 (01:49→15:23)
[2021-03-23] MEDS: LORazepam 2 mg VIAL 1 ml IV SCH ×2 (03:31→14:35)
[2021-03-23] MEDS: NS 0.9% 1000 ml BAG 1,000 ML IV SCH ×2 (03:32→11:58)
[2021-03-23] MEDS ORDERED: Vancomycin Trough Check NOTE FOLLOW UP ONE (07:30)
[2021-03-23] MEDS: Ondansetron 4 mg VIAL 2 MG/ML 2 ml VIAL IV PRN (07:49)
[2021-03-23] MEDS: Nicotine PATCH 21 MG/24 HR PATCH TRANSDERM SCH (07:52)
[2021-03-23] MEDS ORDERED: Lorazepam PYXIS KEY PRN (14:25)
[2021-03-23] MEDS ORDERED: LORazepam 2 mg VIAL 1 ml IV PUSH ONE (14:25)
[2021-03-23] MEDS: Enoxaparin 40 MG/0.4 ML SYR SUBCUT SCH (16:26)
[2021-03-23 19:21] LABS: Hepatitis B Surface Antigen Nonreactive (Nonreactive)
[2021-03-23 19:26] LABS: Hepatitis A Ab IgM Negative (Negative)
[2021-03-23 19:27] LABS: Hepatitis B Core IgM Nonreactive (Nonreactive)
[2021-03-23 21:50] LABS: Hepatitis C Antibody Reactive (Negative)
[2021-03-23] MEDS: Bacitracin OINTMENT TUBE TOPICAL SCH (22:59)
[2021-03-24] MEDS: Nicotine PATCH 21 MG/24 HR PATCH TRANSDERM SCH (07:48)
[2021-03-24] MEDS: Bacitracin OINTMENT TUBE TOPICAL SCH ×3 (07:49→19:57)
[2021-03-24] MEDS: LORazepam 2 mg VIAL 1 ml IV PUSH SCH ×3 (09:06→21:45)
[2021-03-24 10:32] LABS: Albumin 3.8 g/dL (3.2-5.2); CO2 Carbon Dioxide 20 mmol/L (22-32); Calcium 8.9 mg/dL (8.6-10.3); Chloride 100 mmol/L (101-111); Sodium 128 mmol/L (135-145)
[2021-03-24 10:38] LABS: ALT 76 U/L (7-52); Albumin/Globulin Ratio 1.1 (1-3); Alkaline Phosphatase 66 U/L (34-104); Blood Urea Nitrogen 14 mg/dL (6-24); EGFR African American 111.3 (>60); Globulin 3.6 g/dL (2-4); Glucose 166 mg/dL (70-100); Total Protein 7.4 g/dL (6.4-8.9)
[2021-03-24 10:42] LABS: Anion Gap 8 mmol/L (2-11)
[2021-03-24 14:17] LABS: Potassium Redraw 4.5 mmol/L (3.5-5.0)
[2021-03-24] MEDS: Enoxaparin 40 MG/0.4 ML SYR SUBCUT SCH (15:07)
[2021-03-24] MEDS ORDERED: NS 0.9% 1000 ml BAG 1,000 ML IV SCH (18:15)
[2021-03-25] MEDS: Bacitracin OINTMENT TUBE TOPICAL SCH (08:41)
[2021-03-25] MEDS: Nicotine PATCH 21 MG/24 HR PATCH TRANSDERM SCH (08:41)
[2021-03-25] MEDS ORDERED: Lorazepam PYXIS KEY PRN (11:05)
[2021-03-25] MEDS ORDERED: LORazepam 2 mg VIAL 1 ml IV PUSH ONE (11:05)
[2021-03-25] MEDS: LORazepam 2 mg VIAL 1 ml IV PUSH SCH ×3 (12:53→20:49)
[2021-03-25] MEDS: Enoxaparin 40 MG/0.4 ML SYR SUBCUT SCH (15:53)
[2021-03-25 18:59] LABS: Albumin 4.1 g/dL (3.2-5.2); Albumin/Globulin Ratio 1.2 (1-3); Calcium 9.5 mg/dL (8.6-10.3); EGFR African American 129.8 (>60); EGFR Non-African American 107.3 (>60); Globulin 3.5 g/dL (2-4); Potassium 4.3 mmol/L (3.5-5.0); Total Bilirubin 0.4 mg/dL (0.2-1.0); Total Protein 7.6 g/dL (6.4-8.9)
[2021-03-25] MEDS: Mupirocin 2% OINT TUBE TOPICAL SCH (21:53)
[2021-03-26] MEDS: LORazepam 2 mg VIAL 1 ml IV PUSH SCH ×2 (01:14→23:40)
[2021-03-26] MEDS: Nicotine PATCH 21 MG/24 HR PATCH TRANSDERM SCH (08:53)
[2021-03-26] MEDS: Mupirocin 2% OINT TUBE TOPICAL SCH ×2 (08:56→22:00)
[2021-03-26] MEDS: Ondansetron 4 mg VIAL 2 MG/ML 2 ml VIAL IV PRN (10:20)
[2021-03-26 10:54] LABS: CO2 Carbon Dioxide 23 mmol/L (22-32); Calcium 9.8 mg/dL (8.6-10.3); Chloride 101 mmol/L (101-111); Magnesium 1.8 mg/dL (1.9-2.7); Sodium 130 mmol/L (135-145)
[2021-03-26 10:59] LABS: Blood Urea Nitrogen 16 mg/dL (6-24); EGFR African American 133.5 (>60); EGFR Non-African American 110.3 (>60); Glucose 112 mg/dL (70-100)
[2021-03-26 11:47] LABS: Anion Gap 6 mmol/L (2-11)
[2021-03-26] MEDS: Enoxaparin 40 MG/0.4 ML SYR SUBCUT SCH (16:04)
[2021-03-26] MEDS ORDERED: NS 0.9% 1000 ml BAG 1,000 ML IV SCH (16:45)
[2021-03-26] MEDS ORDERED: NS 0.9% 250 ml 250 ML IV ONE (17:38)
[2021-03-27] MEDS: Ondansetron 4 mg VIAL 2 MG/ML 2 ml VIAL IV PRN (08:08)
[2021-03-27] MEDS: LORazepam 2 mg VIAL 1 ml IV PUSH SCH ×6 (08:10→23:59)
[2021-03-27] MEDS: Mupirocin 2% OINT TUBE TOPICAL SCH ×2 (08:15→20:50)
[2021-03-27] MEDS: Nicotine PATCH 21 MG/24 HR PATCH TRANSDERM SCH (08:18)
[2021-03-27] MEDS: Enoxaparin 40 MG/0.4 ML SYR SUBCUT SCH (16:59)
[2021-03-28] MEDS: LORazepam 2 mg VIAL 1 ml IV PUSH SCH ×5 (06:38→22:59)
[2021-03-28] MEDS: Ondansetron 4 mg VIAL 2 MG/ML 2 ml VIAL IV PRN (08:48)
[2021-03-28] MEDS: Nicotine PATCH 21 MG/24 HR PATCH TRANSDERM SCH (08:50)
[2021-03-28] MEDS: Mupirocin 2% OINT TUBE TOPICAL SCH ×2 (08:57→21:12)
[2021-03-28] MEDS: Enoxaparin 40 MG/0.4 ML SYR SUBCUT SCH (18:16)
[2021-03-28] MEDS: Buprenorp/Nalox 8-2 MG FILM SL FILM SCH (21:13)
[2021-03-29] MEDS: LORazepam 2 mg VIAL 1 ml IV PUSH SCH ×6 (00:51→20:21)
[2021-03-29] MEDS: Nicotine PATCH 21 MG/24 HR PATCH TRANSDERM SCH (07:59)
[2021-03-29] MEDS: Mupirocin 2% OINT TUBE TOPICAL SCH ×2 (08:00→20:13)
[2021-03-29] MEDS: Buprenorp/Nalox 8-2 MG FILM SL FILM SCH ×3 (08:06→20:12)
[2021-03-29] MEDS: Ondansetron 4 mg VIAL 2 MG/ML 2 ml VIAL IV PRN ×2 (11:51→20:21)
[2021-03-29] MEDS: Enoxaparin 40 MG/0.4 ML SYR SUBCUT SCH (14:16)
[2021-03-30] MEDS: Ondansetron 4 mg VIAL 2 MG/ML 2 ml VIAL IV PRN ×2 (00:18→09:15)
[2021-03-30] MEDS: LORazepam 2 mg VIAL 1 ml IV PUSH SCH ×2 (00:18→10:30)
[2021-03-30] MEDS: Buprenorp/Nalox 8-2 MG FILM SL FILM SCH (08:23)
[2021-03-30] MEDS: Nicotine PATCH 21 MG/24 HR PATCH TRANSDERM SCH (08:24)
[2021-03-30] MEDS: Mupirocin 2% OINT TUBE TOPICAL SCH (08:29)
[2021-03-30 12:20] VITALS: BP 121/72
== END 2021-03-30 15:40 | disposition home or self-care (01) | DRG 773 ==
LOC: ED 16:39 → MED 22:08
PROVIDERS: ADMIT Internal Medicine; ATTEND Internal Medicine